=== PATIENT | male | born 1945 | race Caucasian/White ===

== ENCOUNTER 2019-01-11 12:12 | Emergency (ER) | payer MEDICARE ==
[~2019-01-11] VITALS: Ht 177.8 cm; Wt 71.2 kg
--- NOTE | 2019-01-11 12:12 | NUR ---
PT BBRA FOR CP FROM HOME, PT AAOX4, PT ON MONITOR, VSS, NAD NOTED, PENDING MD JACKSON
[2019-01-11 12:46] LABS: BASOPHILS # (AUTO) 0.1 /CMM (0.0-0.2); BASOPHILS % (AUTO) 0.7 % (0.0-2.0); EOSINOPHILS % (AUTO) 0.8 % (0.0-6.0); HEMATOCRIT 42 % (39-51); HEMOGLOBIN 14.3 g/dL (13.5-17.5); LYMPHOCYTES # (AUTO) 1.1 /CMM (0.8-4.8); LYMPHOCYTES % (AUTO) 14.2 % (20.0-44.0); MEAN CORPUSCULAR HGB CONC 34 g/dl (31.0-36.0); MEAN CORPUSCULAR VOLUME 91 fL (80-96); MONOCYTES # (AUTO) 0.9 /CMM (0.1-1.30); MONOCYTES % (AUTO) 11.4 % (2.0-12.0); NEUTROPHILS # (AUTO) 5.6 /CMM (1.8-8.9); NEUTROPHILS % (AUTO) 72.9 % (43.0-81.0); PLATELET COUNT (AUTO) 273 /CMM (150-450); RED BLOOD CELL COUNT(AUTO) 4.59 MIL/uL (4.5-6.0); WHITE BLOOD COUNT (AUTO) 7.7 K/uL (4.3-11.0)
[2019-01-11 12:55] LABS: CALCIUM, SERUM 9.8 mg/dL (8.5-10.1); CARBON DIOXIDE 30 mmol/L (21-32); CHLORIDE 101 mmol/L (98-107); CREATININE 0.8 mg/dL (0.6-1.3); GLUCOSE 124 mg/dL (74-106); POTASSIUM 4.3 mmol/L (3.5-5.1); SODIUM SERUM 138 mmol/L (136-145); UREA NITROGEN, BLOOD 25 mg/dL (7-18)
[2019-01-11 13:07] LABS: ALANINE AMINOTRANSFERASE 22 U/L (12-78); ALBUMIN 3.3 g/dL (3.4-5.0); ALKALINE PHOSPHATASE 68 U/L (46-116); ASPARTATE AMINOTRANSFERASE 22 U/L (15-37); B-TYPE NATRIURETIC PEPTIDE 117 PG/ML (0-125); BILIRUBIN,TOTAL 0.2 mg/dL (0.2-1.0); TOTAL PROTEIN, SERUM 7.3 g/dL (6.4-8.2)
[2019-01-11] MEDS ORDERED: LORAZEPAM 0.5 MG TABLET ONE (13:17)
[2019-01-11] MEDS: LORAZEPAM 0.5 MG TABLET PO ONE (13:32)
--- NOTE | 2019-01-11 13:45 | NUR ---
CALLED ART FOR PSYCH EVAL, ETA WITHIN THE HOUR.
[2019-01-11 14:09] LABS: SALICYLATE 2.1 mg/dL (2.8-20.0)
--- NOTE | 2019-01-11 14:13 | NUR ---
Note maria del rosario in EDM - 01/11/19 at 1417 by ORVILLE Patient discharged to home in stable condition. Written and verbal after care instructions given. Patient verbalizes understanding of instruction. IV removed. Catheter intact and site benign. Pressure and 4x4 applied to site. No bleeding noted.
[2019-01-11] MEDS ORDERED: DULO30CA2 PO (14:46)
[2019-01-11] MEDS ORDERED: ACET325T53 PO (14:46)
[2019-01-11] MEDS ORDERED: DIPH1TAB PO (14:46)
[2019-01-11] MEDS ORDERED: SUVO20TA PO (14:46)
[2019-01-11] MEDS ORDERED: OLAN2.5T3 PO (14:46)
[2019-01-11] MEDS ORDERED: MIRT30TA PO (14:46)
[2019-01-11] MEDS ORDERED: OLAN10TA3 PO (14:46)
[2019-01-11] MEDS ORDERED: LEVO88TA2 PO (14:46)
[2019-01-11] MEDS ORDERED: LOPE2CAP40 PO (14:46)
[2019-01-11] MEDS ORDERED: GABA-532 PO (14:46)
[2019-01-11] MEDS ORDERED: ASPI-1169 PO (14:46)
[2019-01-11] MEDS ORDERED: LIDO30AD10 TP (14:46)
[2019-01-11] MEDS ORDERED: DIVA-76 PO (14:46)
[2019-01-11] MEDS ORDERED: DIVA125T32 PO (14:46)
[2019-01-11] MEDS ORDERED: PRAV40TA3 PO (14:46)
[2019-01-11] MEDS ORDERED: CALC500T13 PO (14:50)
[2019-01-11] MEDS ORDERED: POLY17PO4 PO (14:50)
[2019-01-11] MEDS ORDERED: LORAZEPAM 1 MG TABLET ONE (16:04)
[2019-01-11] MEDS: LORAZEPAM 1 MG TABLET PO ONE (16:12)
--- NOTE | 2019-01-11 16:42 | NUR ---
Patient discharged to home in stable condition. Written and verbal after care instructions given. Patient verbalizes understanding of instruction.
[2019-01-11 16:43] VITALS: BP 131/75
== END 2019-01-11 16:51 | disposition home or self-care (01) ==
LOC: ER 12:12
DX: R07.89 Other chest pain (principal); F41.9 Anxiety disorder, unspecified; G25.0 Essential tremor
CPT/HCPCS: 36415; 71045; 80048; 80076; 80305; 83880; 84484; 85025; 87081; 93005 ×2; 99285; G0480

== ENCOUNTER 2020-10-18 13:32 | Inpatient (IN) | payer MEDICARE, BC ==
[~2020-10-18] VITALS: Ht 177.8 cm; Wt 65.0 kg
[~2020-10-18 13:32] MED LIST: ACET325T53 PO; ASPI-1169 PO; CALC500T13 PO; DIPH1TAB PO; DIVA-76 PO; DIVA125T32 PO; DULO30CA2 PO; GABA-532 PO; LEVO88TA2 PO; LIDO30AD10 TP; LOPE2CAP40 PO; MIRT-119 PO; OLAN10TA3 PO; OLAN2.5T3 PO; POLY17PO4 PO; PRAV40TA3 PO; SUVO20TA PO
--- NOTE | 2020-10-18 13:36 | NUR ---
PT BIBRA FROM HOME TO ER BED 06. PER REPORT, PT WAS RECENTLY DIAGNOSED W/ PNEUMONIA AND IS ON PO ANTIBIOTIC. PT WAS NOTED TO BE MORE ALTERED THAN USUAL TODAY AND IS WEAK W/ NOTED FREQUENT FALL SINCE 10/14/20. PT HYPOXIC COMPENSATOR WORKER. AWAITING MD JACKSON.
[2020-10-18] MEDS ORDERED: QUET150T2 PO (13:53)
[2020-10-18] MEDS ORDERED: GABA600T12 PO ×2 (13:53→15:32)
[2020-10-18] MEDS ORDERED: LEVO75TA PO (13:53)
[2020-10-18] MEDS ORDERED: TRAZ-257 PO (13:53)
--- NOTE | 2020-10-18 14:05 | NUR ---
DR LOZANO AT BEDSIDE FOR EVAL.
--- NOTE | 2020-10-18 14:20 | NUR ---
IV LINE STARTED BLO9OD DRAWN AND SENT TO LAB.
[2020-10-18 14:28] LABS: EOSINOPHILS % (AUTO) 0.2 % (0.0-6.0); HEMATOCRIT 37 % (39-51); HEMOGLOBIN 12.8 g/dL (13.5-17.5); LYMPHOCYTES # (AUTO) 0.9 /CMM (0.8-4.8); WHITE BLOOD COUNT (AUTO) 10.5 K/uL (4.3-11.0)
[2020-10-18 14:33] LABS: BILIRUBIN,URINE SMALL (NEGATIVE); COLOR,URINE YELLOW (YELLOW); LEUKOCYTE ESTERASE ,URINE Negative (NEGATIVE); NITRITE, URINE Negative (NEGATIVE); PROTEIN,URINE 30 mg/dl (NEGATIVE); UGLUCOSE Negative (NEGATIVE)
[2020-10-18 14:34] LABS: BASOPHILS % (AUTO) 0.4 % (0.0-2.0); MEAN CORPUSCULAR HGB CONC 35 g/dl (31.0-36.0); MEAN CORPUSCULAR VOLUME 100 fL (80-96); MONOCYTES # (AUTO) 1.5 /CMM (0.1-1.30); NEUTROPHILS % (AUTO) 76.4 % (43.0-81.0); PLATELET COUNT (AUTO) 162 /CMM (150-450)
[2020-10-18 14:38] LABS: BACTERIA,URINE None seen /HPF (None Seen); RBC,URINE 0-2 /HPF (0-2); SQUAMOUS EPITHELIAL CELL,UR None Seen /HPF (None Seen); WBC,URINE 0-2 /HPF (0-3)
[2020-10-18 14:41] LABS: ALCOHOL, BLOOD < 3 mg/dL (0-0)
[2020-10-18] MEDS ORDERED: VARE1TAB21 PO (14:42)
[2020-10-18] MEDS ORDERED: CYCL10TA9 PO (14:42)
[2020-10-18 14:54] LABS: ALANINE AMINOTRANSFERASE 25 U/L (12-78); ALBUMIN 1.8 g/dL (3.4-5.0); ALKALINE PHOSPHATASE 88 U/L (46-116); ASPARTATE AMINOTRANSFERASE 40 U/L (15-37); B-TYPE NATRIURETIC PEPTIDE 802 PG/ML (0-125); BILIRUBIN,TOTAL 0.5 mg/dL (0.2-1.0); CARBON DIOXIDE 36 mmol/L (21-32); CREATININE 0.9 mg/dL (0.6-1.3); GLUCOSE 96 mg/dL (74-106); TOTAL PROTEIN, SERUM 7.4 g/dL (6.4-8.2); UREA NITROGEN, BLOOD 23 mg/dL (7-18)
--- NOTE | 2020-10-18 14:57 | NUR ---
panel on -call paged
[2020-10-18] MEDS ORDERED: AZTREONAM 2 G in IV NS 0.9% 100 ML IV ONE (15:00)
[2020-10-18] MEDS ORDERED: DEXAMETHASONE SOD PHOSPHATE 10 MG/ML VIAL IV ONE (15:00)
[2020-10-18 15:03] LABS: SERUM AMMONIA 1 umol/L (11-32)
[2020-10-18] MEDS ORDERED: DEXAMETHASONE SOD PHOSPHATE 10 MG/ML VIAL ONE (15:12)
[2020-10-18 15:16] LABS: SODIUM SERUM 131 mmol/L (136-145)
[2020-10-18 15:17] LABS: CHLORIDE 91 mmol/L (98-107); POTASSIUM 3.7 mmol/L (3.5-5.1)
[2020-10-18] MEDS ORDERED: QUET100T PO (15:32)
[2020-10-18] MEDS ORDERED: DIVA500T2 PO (15:32)
[2020-10-18] MEDS ORDERED: ALBU8.5H8 IH (15:32)
[2020-10-18] MEDS ORDERED: LEVO500T90 PO (15:33)
[2020-10-18 15:34] LABS: CREATINE KINASE, TOTAL 57 U/L (39-308); FERRITIN 673 ng/mL (8-388)
[2020-10-18] MEDS ORDERED: MIRT-121 PO (15:34)
[2020-10-18] MEDS ORDERED: MIRT-119 PO (15:34)
[2020-10-18 16:02] LABS: ABG BASE EXCESS 10.8 mmol/L; ABG OXYGEN SATURATION 98.1 % (92.0-98.5); ABG PCO2 56.6 mmHg (35.0-45.0); ABG PH 7.433 (7.350-7.450); ABG PO2 134.5 mmHg (75.0-100.0); AaDO2 521.9 mmHg; COHb 0.2 % (0.5-1.5); MetHb 0.3 % (0.0-1.5); O2Hb 97.6 % (94.0-97.0); SITE, ABG Right Radial
[2020-10-18 16:24] LABS: D-DIMER 1.97 mg/L(FEU (0.17-0.50)
--- NOTE | 2020-10-18 16:27 | NUR ---
CALLED [facility] PAGED DR DURHAM
[2020-10-18 16:36] LABS: THYROID STIMULATING HORMONE 8.689 uIU/mL (0.358-3.74)
[2020-10-18] MEDS ORDERED: ACETAMINOPHEN 650 MG/SUPP.RECT RC PRN (18:00)
[2020-10-18] MEDS ORDERED: ONDANSETRON HCL/PF 4 MG/2 ML VIAL IVP PRN (18:00)
[2020-10-18] MEDS ORDERED: Z GUARD REMEDY 2 OZ OINT TP PRN (18:00)
[2020-10-18] MEDS ORDERED: ALBUTEROL SULFATE INH 18 GM HFA.AER.AD IH PRN (18:00)
[2020-10-18] MEDS ORDERED: GABAPENTIN 100 MG CAPSULE PO SCH (18:00)
--- NOTE | 2020-10-18 18:03 | NUR ---
PT APPEARS MORE RELAXED. ON MONITOR W/ STABLE VITALS AND SATTING 100% ON HIGH FLOW O2. WILL CONTINUE TO MONITOR.
--- NOTE | 2020-10-18 18:35 | NUR ---
NEURONTIN PO NOT GIVEN DUE TO PATIENTS AMS.
[2020-10-18] MEDS: ENOXAPARIN SODIUM 40 MG/0.4 ML DISP.SYRIN SQ SCH (18:54)
[2020-10-18] MEDS ORDERED: ENOXAPARIN SODIUM 40 MG/0.4 ML DISP.SYRIN SQ ONE (18:54)
--- NOTE | 2020-10-18 19:21 | NUR ---
REPORT GIVEN TO DEEDEE NOBLES FOR JORDY.
--- NOTE | 2020-10-18 19:30 | NUR ---
REC'D PT AAOX1-2, PT REMAINS ON HIGHFLOW O2, SAT ABOVE 96%, DENIES ANY SOB, DENIES PAIN/DISCOMFORT, PT VSS, NAD. WCTM
[2020-10-18] MEDS ORDERED: CLINDAMYCIN IV RTU IN D5W 600 MG/50 ML PIGGYBACK IV ONE (20:00)
[2020-10-18] MEDS ORDERED: GABAPENTIN 300 MG CAPSULE PO SCH (22:00)
[2020-10-18] MEDS: GABAPENTIN 300 MG CAPSULE PO SCH (22:00)
[2020-10-18] MEDS: CLINDAMYCIN 600 MG in IV D5W 50 ML IV SCH (22:30)
[2020-10-18] MEDS: MEROPENEM 500 MG in IV NS 0.9% 50 ML IV SCH (23:00)
[2020-10-18] MEDS ORDERED: ATORVASTATIN 40 MG TABLET ONE (23:04)
[2020-10-18] MEDS: ATORVASTATIN 40 MG TABLET PO SCH (23:11)
[2020-10-18] MEDS: IV D5/0.45 NACL 1,000 ML IV PRN (23:11)
[2020-10-19] MEDS: CLINDAMYCIN 600 MG in IV D5W 50 ML IV SCH ×3 (05:00→21:00)
[2020-10-19 05:08] LABS: HEMATOCRIT 34 % (39-51); HEMOGLOBIN 11.9 g/dL (13.5-17.5); LYMPHOCYTES # (AUTO) 0.5 /CMM (0.8-4.8); LYMPHOCYTES % (AUTO) 6.3 % (20.0-44.0); MEAN CORPUSCULAR HGB CONC 35 g/dl (31.0-36.0); MEAN CORPUSCULAR VOLUME 100 fL (80-96); MONOCYTES # (AUTO) 1.1 /CMM (0.1-1.30); MONOCYTES % (AUTO) 13.2 % (2.0-12.0); NEUTROPHILS # (AUTO) 6.9 /CMM (1.8-8.9); NEUTROPHILS % (AUTO) 80.5 % (43.0-81.0); PLATELET COUNT (AUTO) 166 /CMM (150-450); RED BLOOD CELL COUNT(AUTO) 3.41 MIL/uL (4.5-6.0); WHITE BLOOD COUNT (AUTO) 8.6 K/uL (4.3-11.0)
[2020-10-19 05:44] LABS: CHOLESTEROL 113 mg/dL (<200); HDL CHOLESTEROL 28 mg/dL (40-60); LDL 44 mg/dL (0-99); THYROID STIMULATING HORMONE 3.185 uIU/mL (0.358-3.74); TRIGLYCERIDES 71 mg/dL (30-150)
[2020-10-19 05:45] LABS: B-TYPE NATRIURETIC PEPTIDE 555 PG/ML (0-125); CALCIUM, SERUM 8.9 mg/dL (8.5-10.1); CARBON DIOXIDE 36 mmol/L (21-32); CHLORIDE 93 mmol/L (98-107); CREATININE 0.8 mg/dL (0.6-1.3); GLUCOSE 110 mg/dL (74-106); PHOSPHORUS 3.2 mg/dL (2.5-4.9); POTASSIUM 3.6 mmol/L (3.5-5.1); SODIUM SERUM 133 mmol/L (136-145); UREA NITROGEN, BLOOD 25 mg/dL (7-18)
[2020-10-19] MEDS: MEROPENEM 500 MG in IV NS 0.9% 50 ML IV SCH ×3 (06:39→22:00)
--- NOTE | 2020-10-19 07:20 | NUR ---
pt is altered. high risk for aspiration.
[2020-10-19] MEDS: LEVOTHYROXINE SODIUM 75 MCG TABLET PO SCH (07:30)
--- NOTE | 2020-10-19 08:58 | NUR ---
tried given patient a a sip of water. unable to tolerate, pt is coughing.
[2020-10-19] MEDS: CYCLOBENZAPRINE 10 MG TABLET PO SCH ×3 (09:00→17:00)
[2020-10-19] MEDS: MIRTAZAPINE 15 MG TABLET PO SCH (09:00)
[2020-10-19] MEDS ORDERED: DEXAMETHASONE SOD PHOSPHATE 6 MG in IV D5W 50 ML IV SCH (09:00)
[2020-10-19] MEDS: GABAPENTIN 300 MG CAPSULE PO SCH ×4 (09:00→22:00)
[2020-10-19] MEDS: DULOXETINE HCL 30 MG CAPSULE.DR PO SCH (09:00)
[2020-10-19] MEDS: DIVALPROEX SODIUM 500 MG TABLET.DR PO SCH ×3 (09:00→17:00)
[2020-10-19] MEDS ORDERED: DEXAMETHASONE SOD PHOSPHATE 10 MG/ML VIAL ONE (10:22)
[2020-10-19] MEDS: DEXAMETHASONE SOD PHOSPHATE 10 MG/ML VIAL IV SCH (10:23)
[2020-10-19] MEDS ORDERED: PANTOPRAZOLE 40 MG VIAL ONE (10:23)
[2020-10-19] MEDS: PANTOPRAZOLE 40 MG VIAL IV SCH (10:23)
[2020-10-19] MEDS ORDERED: acetaZOLAMIDE 250 MG TABLET PO ONE (14:00)
[2020-10-19] MEDS: IV D5/0.45 NACL 1,000 ML IV PRN (16:23)
[2020-10-19] MEDS ORDERED: ENOXAPARIN SODIUM 40 MG/0.4 ML DISP.SYRIN SQ ONE (18:10)
[2020-10-19] MEDS: ENOXAPARIN SODIUM 40 MG/0.4 ML DISP.SYRIN SQ SCH (18:13)
--- NOTE | 2020-10-19 19:36 | NUR ---
report given to valorie stanley for rubi.
--- NOTE | 2020-10-19 21:26 | NUR ---
report given mackenzie stanley for rubi pt will be transported to 1st floor
[2020-10-19] MEDS: ATORVASTATIN 40 MG TABLET PO SCH (22:00)
--- NOTE | 2020-10-19 23:04 | NUR ---
PT CAME FROM ER, AWAKE, A/O X2,CONFUSED, NO S/S OF DISTRESS NOTED. CALL LIGHT WITHIN REACH. BED ALARM ON. BED IN LOWEST AND LOCKED POSITION. ON HIGH FLOW O2 SATING 95%. NO COMPLAIN OF PAIN. HOB ELEVATED AT ALL TIMES.
[2020-10-19 23:30] VITALS: BP 148/80
[2020-10-20] VITALS: BP 148/80
[2020-10-20] MEDS: IV D5/0.45 NACL 1,000 ML IV PRN ×2 (00:24→22:28)
[2020-10-20 04:00] VITALS: BP 117/78
[2020-10-20] MEDS ORDERED: MEROPENEM 500 MG VIAL IV ONE (04:08)
[2020-10-20] MEDS: MEROPENEM 500 MG in IV NS 0.9% 50 ML IV SCH ×3 (05:01→22:28)
--- NOTE | 2020-10-20 05:10 | NUR ---
called the nursing assembly department supervisor RE: follow up for the med clindamycin.
[2020-10-20] MEDS: CLINDAMYCIN 600 MG in IV D5W 50 ML IV SCH ×3 (06:52→21:07)
[2020-10-20 06:58] LABS: BASOPHILS # (AUTO) 0.1 /CMM (0.0-0.2); BASOPHILS % (AUTO) 1.3 % (0.0-2.0); HEMATOCRIT 37 % (39-51); HEMOGLOBIN 12.5 g/dL (13.5-17.5); LYMPHOCYTES # (AUTO) 1.2 /CMM (0.8-4.8); LYMPHOCYTES % (AUTO) 12.8 % (20.0-44.0); MEAN CORPUSCULAR HGB CONC 34 g/dl (31.0-36.0); MEAN CORPUSCULAR VOLUME 99 fL (80-96); MONOCYTES # (AUTO) 1.4 /CMM (0.1-1.30); MONOCYTES % (AUTO) 15.2 % (2.0-12.0); NEUTROPHILS # (AUTO) 6.4 /CMM (1.8-8.9); NEUTROPHILS % (AUTO) 70.7 % (43.0-81.0); PLATELET COUNT (AUTO) 199 /CMM (150-450); RED BLOOD CELL COUNT(AUTO) 3.73 MIL/uL (4.5-6.0); WHITE BLOOD COUNT (AUTO) 9.1 K/uL (4.3-11.0)
[2020-10-20 07:36] LABS: CALCIUM, SERUM 8.7 mg/dL (8.5-10.1); CREATININE 0.8 mg/dL (0.6-1.3); MAGNESIUM 1.7 mg/dL (1.8-2.4); PHOSPHORUS 1.7 mg/dL (2.5-4.9); POTASSIUM 3.1 mmol/L (3.5-5.1)
[2020-10-20 08:00] VITALS: BP 114/61
--- NOTE | 2020-10-20 08:00 | NUR ---
RN NOTES RECEIVED PT IN BED . ALERT AND ORIENTED X2 CONFUSED. PT IS ON HIGH FLOW 60 L@65% NO ACUTE RESPIRATORY DISTRESS NOTED OR PAIN AT THIS TIME. R AC AND LAC IS INTACT AND D51/2 NS IS RUNNING @75ML /HR NO S/S OF INFECTION OR INFILTRATION NOTED. SAFETY MEASUREMENTS ARE IMPLEMENTED PER HOSPITAL POLICY. BED IS IN THE LOWEST POSITION AND SIDE RAILS ARE UP X2. CALL LIGHT WITHIN THE PT REACH. WILL CONTINUE TO MONITOR
[2020-10-20] MEDS: DIVALPROEX SODIUM 500 MG TABLET.DR PO SCH ×3 (08:35→16:07)
[2020-10-20] MEDS: DEXAMETHASONE SOD PHOSPHATE 10 MG/ML VIAL IV SCH (08:35)
[2020-10-20] MEDS: CYCLOBENZAPRINE 10 MG TABLET PO SCH ×3 (08:35→16:09)
[2020-10-20] MEDS: GABAPENTIN 300 MG CAPSULE PO SCH ×4 (08:35→21:07)
[2020-10-20] MEDS: LEVOTHYROXINE SODIUM 75 MCG TABLET PO SCH (08:35)
[2020-10-20] MEDS: PANTOPRAZOLE 40 MG VIAL IV SCH (08:35)
[2020-10-20] MEDS: MIRTAZAPINE 15 MG TABLET PO SCH (08:36)
[2020-10-20] MEDS: DULOXETINE HCL 30 MG CAPSULE.DR PO SCH (08:36)
[2020-10-20] MEDS: Magnesium 1GM/D5W 100ML PREMIX 100 ML IV SCH ×2 (10:20→11:01)
[2020-10-20] MEDS: POTASSIUM CL. PREMIX PERIPHER. 50 ML IV SCH ×4 (11:39→14:34)
[2020-10-20 12:00] VITALS: BP 109/75
[2020-10-20] MEDS ORDERED: NEUTRA PHOS 1 POWD.PACKET PO ONE (12:00)
[2020-10-20 13:16] LABS: LYMPHOCYTES % (MANUAL) 11 % (16-48); MONOCYTES % (MANUAL) 17 % (0-11.0); NEUTROPHILS % (MANUAL) 72 (42-76)
--- NOTE | 2020-10-20 15:07 | NUR ---
RN NOTES PT HAS NO S/S OF RESPIRATORY DISTRESS NOTED
[2020-10-20 16:00] VITALS: BP 150/61
[2020-10-20] MEDS: ENOXAPARIN SODIUM 40 MG/0.4 ML DISP.SYRIN SQ SCH (17:59)
--- NOTE | 2020-10-20 18:54 | NUR ---
RN CLOSING NOTES PATIENT CURRENTLY IN BED, RESTING. A/OX2 CONFUSED. TELE/MONITOR IS READING SR . PATIENT CURRENTLY ON HIGH FLOW 60L FIO2@65% NO S/S OF RESPIRATORY DISTRESS NOTED. HR TUBE FEEDING. CURRENTLY HAS IV ON L AC AND RAC#18 . IV INTACT AND PATENT, NO S/S OF INFECTION OR INFILTRATION AT THIS TIME. ALL SAFETY MEASURES IN PLACE PER HOSPITAL POLICY. BED LOCKED AND IN THE LOWEST POSITION.SIDE RAILS ARE UP X2. CALL LIGHT WITHIN REACH. WILL ENDORSE TO DIRECTOR PAYMENT NURSE FOR JORDY.
--- NOTE | 2020-10-20 19:30 | NUR ---
FERTILIZER SUPERVISOR OPENING NOTES: RECEIVED PT IN BED, ASLEEP,AROUSABLE. HOB ELEVATED AT 35 DEGREES. ON HIGH FLOW O2 AT 60L,65%. NO S/S OF DISTRESS NOTED. BED ALARM ON. BED IN LOWEST AND LOCKED POSITION. WITH BILATERAL SOFT WRISTS RESTRAINTS WITH SKIN AND CIRCULATION ARE WNL.
[2020-10-20 20:00] VITALS: BP 130/95
[2020-10-20] MEDS: ATORVASTATIN 40 MG TABLET PO SCH (21:06)
[2020-10-21] VITALS (7 sets, daily range): BP systolic 109–126; BP diastolic 67–75
[2020-10-21] MEDS: CLINDAMYCIN 600 MG in IV D5W 50 ML IV SCH ×3 (05:38→20:24)
--- NOTE | 2020-10-21 06:37 | NUR ---
WEB ANALYST CLOSING NOTES: PT IN BED, AWAKE, A/OX2.CONFUSED. NO S/S OF DISTRESS NOTED. SLEPT THROUGHOUT THE NIGHT. BED ALARM ON. BED IN LOWEST AND LOCKED POSITION. WITH BILATERAL SOFT WRISTS RESTRAINTS ON, SKIN AND CIRCULATION ARE WNL. PT OBSERVED Q15 MINS FOR SAFETY. CLEMENTINA-CARE DONE. CALL LIGHT WITHIN REACH.
[2020-10-21] MEDS: MEROPENEM 500 MG in IV NS 0.9% 50 ML IV SCH ×3 (06:56→21:30)
[2020-10-21] MEDS: LEVOTHYROXINE SODIUM 75 MCG TABLET PO SCH (07:30)
--- NOTE | 2020-10-21 07:30 | NUR ---
RN OPENING NOTE PT SEMIFOWLERS IN BED RESTING COMFORTABLY, A/Ox1 AND CONFUSED, ON HIGH FLOW O2 AT 60L AND FIO2 OF 65%, NO SIGNS OF RESP DISTRESS OR SOB, BREATHING IS EVEN AND UNLABORED. PT HAS LAC #18 RUNNING D5 1/2 NS AT 75ML/HR AND RAC THAT IS FLUSHED, PATENT AND SL, NO SIGNS OF INFILTRATION OR INFECTION IN EITHER ACCESS SITE. PT DENIES PAIN. ALL PT SAFETY PRECAUTIONS IN PLACE, BED IN LOWEST POSITION, BED ALARM ON, CALL SHAH WITHIN REACH, SR UP x2, SZ PRECAUTIONS IN PLACE. WILL CONTINUE TO MONITOR. Addendum: 10/21/20 at 1344 by ANA MARIA DELANEY RN PT HAS BILATERAL SOFT WRIST RESTRAINTS; CMS INTACT. WILL CONTINUE TO ASSESS
--- NOTE | 2020-10-21 07:30 | NUR ---
RN OPENING NOTE PT SEMIFOWLERS IN BED RESTING COMFORTABLY, A/Ox4, ON NRB 15LPM WITHNO SIGNS OF RESP DISTRESS OR SOB, BREATHING IS EVEN AND UNLABORED. PT HAS LT WRIST #22 RUNNING NS @ 75ML/HR. PT DENIES PAIN. ALL PT SAFETY PRECAUTIONS IN PLACE, BED IN LOWEST POSITION, CALL SHAH WITHIN REACH, SR UP x2. WILL CONTINUE TO MONITOR. Addendum: 10/21/20 at 1122 by ANA MARIA DELANEY RN DISREGARD NOTE, WRONG PT. WILL ENTER CORRECT OPENING NOTE NOW
[2020-10-21 08:23] LABS: THYROID STIMULATING HORMONE 6.487 uIU/mL (0.358-3.74); URIC ACID 4.2 mg/dL (2.6-7.2)
[2020-10-21 08:42] LABS: CALCIUM, SERUM 7.7 mg/dL (8.5-10.1); CREATININE 0.7 mg/dL (0.6-1.3); MAGNESIUM 1.7 mg/dL (1.8-2.4); PHOSPHORUS 2.3 mg/dL (2.5-4.9); POTASSIUM 3.3 mmol/L (3.5-5.1)
[2020-10-21] MEDS: DULOXETINE HCL 30 MG CAPSULE.DR PO SCH (09:00)
[2020-10-21] MEDS: DIVALPROEX SODIUM 500 MG TABLET.DR PO SCH ×3 (09:00→16:49)
[2020-10-21] MEDS: GABAPENTIN 300 MG CAPSULE PO SCH ×4 (09:00→21:37)
[2020-10-21] MEDS: MIRTAZAPINE 15 MG TABLET PO SCH (09:00)
[2020-10-21] MEDS: CYCLOBENZAPRINE 10 MG TABLET PO SCH ×3 (09:00→16:49)
--- NOTE | 2020-10-21 09:00 | NUR ---
RN NOTE PT IS CONFUSED AND ASPIRATION RISK. WILL NOT ADMIN PO MEDS. WILL NOTIFY MD
[2020-10-21] MEDS: PANTOPRAZOLE 40 MG VIAL IV SCH (09:04)
[2020-10-21] MEDS: DEXAMETHASONE SOD PHOSPHATE 10 MG/ML VIAL IV SCH (09:05)
[2020-10-21] MEDS: Magnesium 1GM/D5W 100ML PREMIX 100 ML IV SCH ×2 (11:00→12:22)
[2020-10-21] MEDS: POTASSIUM CL. PREMIX PERIPHER. 50 ML IV SCH ×2 (12:22→12:30)
[2020-10-21] MEDS ORDERED: Sodium Phosphate 15 MMOL in IV NS 0.9% 245 ML IV SCH (13:00)
--- NOTE | 2020-10-21 14:00 | NUR ---
RN NOTE DR DURHAM AWARE NO PO MEDS GIVEN TO PT D/T CONFUSION AND ASPIRATION RISK. PT SCHEDULED SWALLOW EVAL Thursday10/22/20
[2020-10-21] MEDS ORDERED: POTASSIUM CL. PREMIX PERIPHER. 50 ML IV SCH (15:30)
--- NOTE | 2020-10-21 15:30 | NUR ---
RN NOTE SPOKE WITH GUARDIAN RAFAEL ([phone]) REGARDING PT'S STATUS. RAFAEL REQUEST WE GIVE HER 24 HR NOTICE PRIOR TO DISCHARGING OF PT. ALL QUESTIONS ANSWERED TO HER SATISFACTION Addendum: 10/21/20 at 1650 by ANA MARIA DELANEY RN PER RAFAEL, NOT TO GIVE PT XANAX, BUT ATIVAN IS OK FOR ANXIETY
[2020-10-21] MEDS: IV D5/0.45 NACL 1,000 ML IV PRN (15:39)
[2020-10-21 16:41] LABS: C-REACTIVE PROTEIN 14.9 mg/dL (0.0-0.9)
[2020-10-21] MEDS: ENOXAPARIN SODIUM 40 MG/0.4 ML DISP.SYRIN SQ SCH (17:36)
--- NOTE | 2020-10-21 19:00 | NUR ---
RN CLOSING NOTE NO CHANGE TO PT STATUS. PT STABLE AND BREATHING UNLABORED WITH NO SIGNS OF RESP DISTRESS OR SOB. ALL PT SAFETY PRECAUTIONS IN PLACE. WILL ENDORSE JORDY TO ONCOMING NURSE
--- NOTE | 2020-10-21 19:20 | NUR ---
RN OPENING NOTE RECEIVED PATIENT IN BED ALERT ORIENTED X1 VERBALLY RESPONSIVE ON HIGH FLOW OXYGEN 60L FIO2 60% O2:89% NPO NO MEDS PO. IV LINE IS ON LEFT AC AND RIGHT AC INTACT PATENT ON D5 1/2NS 75CC/HR RUNNING,INCONTINENT TO BOWEL/BLADDER BED IN LOW POSITION AND LOCKED BED ALARM IS ON CONTINUE TO MONITOR.
[2020-10-21] MEDS: ATORVASTATIN 40 MG TABLET PO SCH (21:37)
--- NOTE | 2020-10-21 21:38 | NUR ---
RN NOTE LIPITOR AND GABAPENTIN NOT ADMINISTERED DR ORDERED PATIENT IN NPO,CONTINUE TO MONITOR
[2020-10-22] VITALS: BP 128/71
[2020-10-22] MEDS: IV D5/0.45 NACL 1,000 ML IV PRN ×2 (03:44→19:08)
[2020-10-22 04:00] VITALS: BP 126/74
[2020-10-22] MEDS: CLINDAMYCIN 600 MG in IV D5W 50 ML IV SCH ×2 (04:04→13:08)
[2020-10-22] MEDS: MEROPENEM 500 MG in IV NS 0.9% 50 ML IV SCH ×3 (05:01→21:32)
--- NOTE | 2020-10-22 06:38 | NUR ---
RN CLOSING NOTE PATIENT REMAINS ON ALERT ORIENTED X1 VERBALLY RESPONSIVE ON 60L HIGH FLOW OXYGEN FIO2:65% O2:96%,IV SITE IS LEFT AC AND RIGHT AC INTACT PATENT ON IV HYDRATION D51/2NS 75CC/HR,ALL DUE IV MEDS GIVEN MD ORDERED, PATIENT IS NPO RISK FOR ASPIRATION,KEPT CLEAN AND DRY ALL THE TIME,ENDORSE NEXT COMING SHIFT FOR CONTINUATION OF CARE
[2020-10-22 07:09] LABS: BASOPHILS % (AUTO) 0.4 % (0.0-2.0); EOSINOPHILS % (AUTO) 1.2 % (0.0-6.0); HEMATOCRIT 33 % (39-51); HEMOGLOBIN 11.4 g/dL (13.5-17.5); LYMPHOCYTES # (AUTO) 1.5 /CMM (0.8-4.8); LYMPHOCYTES % (AUTO) 17.8 % (20.0-44.0); MEAN CORPUSCULAR HGB CONC 35 g/dl (31.0-36.0); MEAN CORPUSCULAR VOLUME 99 fL (80-96); MONOCYTES # (AUTO) 1.4 /CMM (0.1-1.30); MONOCYTES % (AUTO) 16.4 % (2.0-12.0); NEUTROPHILS # (AUTO) 5.5 /CMM (1.8-8.9); NEUTROPHILS % (AUTO) 64.2 % (43.0-81.0); PLATELET COUNT (AUTO) 239 /CMM (150-450); RED BLOOD CELL COUNT(AUTO) 3.28 MIL/uL (4.5-6.0); WHITE BLOOD COUNT (AUTO) 8.6 K/uL (4.3-11.0)
[2020-10-22] MEDS: LEVOTHYROXINE SODIUM 75 MCG TABLET PO SCH (07:30)
[2020-10-22 07:55] LABS: CALCIUM, SERUM 7.5 mg/dL (8.5-10.1); CREATININE 0.7 mg/dL (0.6-1.3); MAGNESIUM 1.7 mg/dL (1.8-2.4); PHOSPHORUS 2.3 mg/dL (2.5-4.9); POTASSIUM 2.9 mmol/L (3.5-5.1)
--- NOTE | 2020-10-22 07:55 | NUR ---
WOUND CARE CONSULT: REVIEWED CHART, NURSING DOCUMENTATION ANDPHOTOS WHICH INDICATE MULTIPLE AREAS OF SKIN DISCOLORATION INCLUDING LEFT BUTTOCK AND LEFT EAR AND LOWER BACK ABRASION, ALL PRESENT ON ADMISSION. RECOMMENDATIONS MADE FOR SKIN PROTECTION. DISCUSSED WITH NURSING STAFF. PT SITS UP AT EDGE OF BED. PT IS ON ACTON ISOFLEX LOW AIRLOSS BED. MD IN AGREEMENT WITH PLAN OF CARE. CURRENT ARNULFO SCORE IS 14.
[2020-10-22 08:00] VITALS: BP 119/72
--- NOTE | 2020-10-22 08:00 | NUR ---
RN OPENING NOTE RECEIVED PATIENT IN BED WITH HOB AT SEMI FOWLERS POSITION. PATIENT IS AOX1. RECEIVING HIGH FLOW 60L AT 65%. PATIENT HAS MULTIPLE BRUISES. SOFT RESTRAINTS APPLIED BILATERALLY. PATIENTS RAC #118 AND LAC #18 ARE PATENT, INTACT, AND HAVE NO SIGNS OF INFILTRATION. BED IS LOCKED IN LOWEST POSITION, 3 SIDE RAILS RAISED, CALL SHAH WITHIN REACH. WILL CONTINUE TO MONITOR THROUGHOUT SHIFT.
[2020-10-22 08:19] LABS: CREATINE KINASE, TOTAL 182 U/L (39-308); FERRITIN 525 ng/mL (8-388)
[2020-10-22] MEDS: DULOXETINE HCL 30 MG CAPSULE.DR PO SCH (09:00)
[2020-10-22] MEDS: CYCLOBENZAPRINE 10 MG TABLET PO SCH ×3 (09:00→17:35)
[2020-10-22] MEDS: DIVALPROEX SODIUM 500 MG TABLET.DR PO SCH ×3 (09:00→17:35)
[2020-10-22] MEDS: GABAPENTIN 300 MG CAPSULE PO SCH ×4 (09:00→21:44)
[2020-10-22] MEDS: MIRTAZAPINE 15 MG TABLET PO SCH (09:00)
[2020-10-22] MEDS: PANTOPRAZOLE 40 MG VIAL IV SCH (09:21)
[2020-10-22] MEDS: DEXAMETHASONE SOD PHOSPHATE 10 MG/ML VIAL IV SCH (09:25)
[2020-10-22 10:06] LABS: BAND % (MANUAL) 5 % (0.0-5.0); LYMPHOCYTES % (MANUAL) 20 % (16-48); MONOCYTES % (MANUAL) 17 % (0-11.0); NEUTROPHILS % (MANUAL) 58 (42-76)
[2020-10-22] MEDS ORDERED: K PHOS NEUTRAL 250 MG TABLET PO ONE (11:00)
[2020-10-22] MEDS ORDERED: POTASSIUM CHLORIDE 20 MEQ TAB.PRT.SR PO SCH (11:00)
[2020-10-22] MEDS: Magnesium 1GM/D5W 100ML PREMIX 100 ML IV SCH ×2 (11:28→13:01)
[2020-10-22] MEDS: POTASSIUM CHLORIDE 20 MEQ POWDER PACKET PO SCH ×3 (11:30→14:07)
[2020-10-22] MEDS ORDERED: NEUTRA PHOS 1 POWD.PACKET PO ONE (11:30)
--- NOTE | 2020-10-22 11:33 | NUR ---
PICKER AND SORTER LOAD AND UNLOAD NOTE KLOR CON AND NEUTRA PHOS POWDER PACKETS GIVEN ALTERNATIVES FOR PATIENTS INABILITY TO SWALLOW WHOLE PILLS. WILL CONTINUE TO MONITOR.
[2020-10-22 12:00] VITALS: BP 127/74
[2020-10-22 16:00] VITALS: BP 144/91
[2020-10-22 16:55] LABS: C-REACTIVE PROTEIN 7.7 mg/dL (0.0-0.9)
[2020-10-22] MEDS: ENOXAPARIN SODIUM 40 MG/0.4 ML DISP.SYRIN SQ SCH (17:36)
--- NOTE | 2020-10-22 18:48 | NUR ---
RN CLOSING NOTE PATIENT IS IN BED WITH HOB AT SEMI FOWLERS POSITION. AOX2. PATIENT HAS SOFT RESTRAINTS BILATERALLY AND IS RESTLESS. SKIN IS INTACT WITH SOME BRUISING. PATIENT IS RECEIVING HIGH FLOW 60L AT 65%. VITAL SIGNS ARE WITHIN NORMAL RANGE. RAC AND LAC #18 ARE PATENT, INTACT, AND HAVE NO SIGNS OF INFILTRATION. BED IS LOCKED IN THE LOWEST POSITION, CALL SHAH WITHIN REACH, THREE GUARD RAILS RAISED, AND ALL HOSPITAL SAFETY PRECAUTIONS ARE BEING FOLLOWED. WILL ENDORSE TO OXYGEN THERAPY TEACHER NURSE.
--- NOTE | 2020-10-22 19:35 | NUR ---
RN OPENING NOTES RECEIVED PATIENT IN BED. PATIENT IS A/O X 1-2 CONFUSED, COOPERATIVE. PT ON HIGH FLOW 60L AT 65% FIO2 SATURATION 100% AT THIS TIME NO SOB OR RESP DISTRESS. PATIENT HAS MULTIPLE BRUISES. PT HAS SOFT FELA WRIST RESTRAINTS ON. CIRCULATION CHECKED. IV SITES FLUSHED, WITH IVF D5 0.45% NS RUNNING AT 75XCC/HR NO S/S OF INFILTRATION NOTED AT THIS TIME. HOB ELEVATED. BED IS LOCKED IN LOWEST POSITION, SIDE RAILS UP X3, CALL LIGHT WITHIN REACH. WILL CONTINUE TO MONITOR.
[2020-10-22 20:00] VITALS: BP 123/82
[2020-10-22] MEDS: ATORVASTATIN 40 MG TABLET PO SCH (21:33)
[2020-10-23] VITALS: BP 110/77
[2020-10-23 04:00] VITALS: BP 136/85
[2020-10-23] MEDS: MEROPENEM 500 MG in IV NS 0.9% 50 ML IV SCH ×3 (05:07→22:21)
[2020-10-23] MEDS: IV D5/0.45 NACL 1,000 ML IV PRN (05:07)
[2020-10-23 06:37] LABS: BASOPHILS % (AUTO) 0.2 % (0.0-2.0); EOSINOPHILS % (AUTO) 1.7 % (0.0-6.0); HEMATOCRIT 33 % (39-51); HEMOGLOBIN 11.5 g/dL (13.5-17.5); LYMPHOCYTES # (AUTO) 2.3 /CMM (0.8-4.8); LYMPHOCYTES % (AUTO) 29.7 % (20.0-44.0); MEAN CORPUSCULAR HGB CONC 35 g/dl (31.0-36.0); MEAN CORPUSCULAR VOLUME 98 fL (80-96); MONOCYTES % (AUTO) 13.6 % (2.0-12.0); NEUTROPHILS # (AUTO) 4.2 /CMM (1.8-8.9); NEUTROPHILS % (AUTO) 54.8 % (43.0-81.0); PLATELET COUNT (AUTO) 273 /CMM (150-450); RED BLOOD CELL COUNT(AUTO) 3.39 MIL/uL (4.5-6.0); WHITE BLOOD COUNT (AUTO) 7.7 K/uL (4.3-11.0)
[2020-10-23 07:10] LABS: CALCIUM, SERUM 7.4 mg/dL (8.5-10.1); CARBON DIOXIDE 25 mmol/L (21-32); CHLORIDE 95 mmol/L (98-107); CREATININE 0.5 mg/dL (0.6-1.3); GLUCOSE 105 mg/dL (74-106); MAGNESIUM 1.8 mg/dL (1.8-2.4); POTASSIUM 3.3 mmol/L (3.5-5.1); SODIUM SERUM 127 mmol/L (136-145); UREA NITROGEN, BLOOD 14 mg/dL (7-18)
--- NOTE | 2020-10-23 07:12 | NUR ---
RN CLOSING NOTES NO SIGNIFICANT CHANGES. PT RESTED WELL. PT ON HIGH FLOW 60L AT 65% FIO2 SATURATION 100% AT THIS TIME NO SOB OR RESP DISTRESS. PT HAS SOFT FELA WRIST RESTRAINTS ON. CIRCULATION CHECKED. STILL WITH IVF D5 0.45% NS RUNNING AT 75XCC/HR NO S/S OF INFILTRATION NOTED AT THIS TIME. HOB ELEVATED. BED IS LOCKED IN LOWEST POSITION, SIDE RAILS UP X3, CALL LIGHT WITHIN REACH. WILL ENDORSE TO AM NURSE FOR CONTINUATION OF CARE.
[2020-10-23 07:19] LABS: CREATINE KINASE, TOTAL 79 U/L (39-308); FERRITIN 453 ng/mL (8-388)
--- NOTE | 2020-10-23 07:30 | NUR ---
POLY OPERATOR OPENING NOTES Patient received in bed and alert and oriented x 2 with forgetfulness. Patient is on 40 liter high flow 02 with 60% fi02 with 02 saturation of 96%. No s/s of respiratory distress noted. IV site to left and right ac patent and flushed well with no s/s of infiltration or infection. Patient monitored for circulation and any s/s of skin breakdown due to soft wrist restraints, no s/s of breakdown noted. Circulation noted. Patient reminded to use call light for assistance. On cardiac monitoring with NSR heart rate of 77 BPM. Bed in lowest and locked position. Will continue to monitor. Call light with in reach.
[2020-10-23 08:00] VITALS: BP 110/72
[2020-10-23] MEDS: DEXAMETHASONE SOD PHOSPHATE 10 MG/ML VIAL IV SCH (08:23)
[2020-10-23] MEDS: LEVOTHYROXINE SODIUM 75 MCG TABLET PO SCH (08:23)
[2020-10-23] MEDS: DIVALPROEX SODIUM 500 MG TABLET.DR PO SCH ×3 (08:23→17:23)
[2020-10-23] MEDS: GABAPENTIN 300 MG CAPSULE PO SCH ×4 (08:24→22:21)
[2020-10-23] MEDS: FAMOTIDINE/PF INJ 20 MG/2 ML VIAL IV SCH (08:24)
[2020-10-23] MEDS: DULOXETINE HCL 30 MG CAPSULE.DR PO SCH (08:24)
[2020-10-23] MEDS: CYCLOBENZAPRINE 10 MG TABLET PO SCH ×3 (08:24→17:24)
[2020-10-23] MEDS: MIRTAZAPINE 15 MG TABLET PO SCH (08:25)
[2020-10-23 12:00] VITALS: BP 120/74
[2020-10-23 15:23] LABS: C-REACTIVE PROTEIN 5.4 mg/dL (0.0-0.9)
[2020-10-23 16:00] VITALS: BP 124/77
[2020-10-23] MEDS ORDERED: NEUTRA PHOS 1 POWD.PACKET PO ONE (16:00)
[2020-10-23] MEDS: ENOXAPARIN SODIUM 40 MG/0.4 ML DISP.SYRIN SQ SCH (17:25)
--- NOTE | 2020-10-23 19:38 | NUR ---
IMITATION MARBLE MECHANIC CLOSING NOTES Patient in bed and in comfortable position. Patient is on 40 liter high flow 02 with 60% fi02 with 02 saturation of 98%. No s/s of respiratory distress noted. IV site to left and right ac patent and flushed well with no s/s of infiltration or infection. Patient monitored for circulation and any s/s of skin breakdown due to soft wrist restraints, no s/s of breakdown noted. Circulation noted. Patient reminded to use call light for assistance. On cardiac monitoring with NSR heart rate of 71 BPM. Bed in lowest and locked position. Will continue to monitor. Endorsed to next shift for JORDY
--- NOTE | 2020-10-23 19:40 | NUR ---
TELE/RN OPENING NOTES: RECEIVED PT. IN BED A/OX 2, WITH FORGETFULNESS. PATIENT IS ON 40 LITER HIGH FLOW 02 WITH 60% FI02 WITH 02 SATURATION OF 97%. NO S/S OF RESPIRATORY DISTRESS NOTED. IV SITE TO LEFT AC #18G PATENT AND FLUSHED WELL WITH NO S/S OF INFILTRATION OR INFECTION. MONITORED FOR CIRCULATION AND ANY S/S OF SKIN BREAKDOWN DUE TO SOFT WRIST RESTRAINTS, NO S/S OF BREAKDOWN NOTED. CIRCULATION NOTED. ON CARDIAC MONITORING WITH NSR HEART RATE OF 70S BPM. SAFETY MEASURES IN PLACE. BED IN LOWEST AND LOCKED POSITION. CALL LIGHT WITH IN REACH. WILL CONTINUE TO MONITOR ACCORDINGLY.
[2020-10-23 20:00] VITALS: BP 107/66
[2020-10-23] MEDS: ATORVASTATIN 40 MG TABLET PO SCH (22:21)
[2020-10-24] VITALS: BP 98/72
[2020-10-24] MEDS: IV D5/0.45 NACL 1,000 ML IV PRN (01:08)
[2020-10-24 04:00] VITALS: BP 109/73
[2020-10-24] MEDS: MEROPENEM 500 MG in IV NS 0.9% 50 ML IV SCH ×2 (05:33→12:56)
--- NOTE | 2020-10-24 06:44 | NUR ---
TELE/RN CLOSING NOTES: PATIENT REMAINS IN BED A/OX 2, WITH FORGETFULNESS. TOLERATING 40 LITER HIGH FLOW 02 WITH 60% FI02 WITH 02 SATURATION OF 96%. NO S/S OF RESPIRATORY DISTRESS NOTED. IV SITE TO LEFT AC #18G PATENT AND FLUSHED WELL WITH NO S/S OF INFILTRATION OR INFECTION. MONITORED FOR CIRCULATION AND ANY S/S OF SKIN BREAKDOWN DUE TO SOFT WRIST RESTRAINTS, NO S/S OF BREAKDOWN NOTED. CIRCULATION NOTED. ON CARDIAC MONITORING WITH NSR HEART RATE OF 70S BPM. BED BATH GIVEN. TURNED AND REPOSITIONED Q2HRS. ALL NURSING NEEDS MET. KEPT CLEAN AND DRY AT ALL TIMES. ALL DUE MED GIVEN ORDERED. SAFETY MEASURES IN PLACE. BED IN LOWEST AND LOCKED POSITION. CALL LIGHT WITH IN REACH. WILL CONTINUE PLAN OF CARE AND ENDORSE TO DAY SHIFT FOR JORDY.
[2020-10-24 07:02] LABS: CALCIUM, SERUM 7.5 mg/dL (8.5-10.1); CREATININE 0.6 mg/dL (0.6-1.3); PHOSPHORUS 2.1 mg/dL (2.5-4.9); POTASSIUM 3.5 mmol/L (3.5-5.1)
--- NOTE | 2020-10-24 07:30 | NUR ---
PT RECEIVED RESTING COMFORTABLY IN BED. NO S/S OR C/O PAIN OR DISCOMFORT NOTED. SIDE RAILS UP X2, CALL LIGHT LEFT WITHIN REACH. WILL CONTINUE PLAN OF CARE.
[2020-10-24 08:00] VITALS: BP 116/80
[2020-10-24] MEDS: GABAPENTIN 300 MG CAPSULE PO SCH ×4 (08:38→22:35)
[2020-10-24] MEDS: MIRTAZAPINE 15 MG TABLET PO SCH (08:38)
[2020-10-24] MEDS: DIVALPROEX SODIUM 500 MG TABLET.DR PO SCH ×3 (08:38→17:09)
[2020-10-24] MEDS: CYCLOBENZAPRINE 10 MG TABLET PO SCH ×3 (08:38→17:10)
[2020-10-24] MEDS: LEVOTHYROXINE SODIUM 75 MCG TABLET PO SCH (08:38)
[2020-10-24] MEDS: DULOXETINE HCL 30 MG CAPSULE.DR PO SCH (08:39)
[2020-10-24] MEDS: DEXAMETHASONE SOD PHOSPHATE 10 MG/ML VIAL IV SCH (08:45)
[2020-10-24] MEDS: FAMOTIDINE/PF INJ 20 MG/2 ML VIAL IV SCH (08:45)
[2020-10-24 12:00] VITALS: BP 94/68
[2020-10-24] MEDS ORDERED: NEUTRA PHOS 1 POWD.PACKET PO ONE (13:00)
[2020-10-24 16:00] VITALS: BP 129/80
[2020-10-24] MEDS: ENOXAPARIN SODIUM 40 MG/0.4 ML DISP.SYRIN SQ SCH (17:11)
--- NOTE | 2020-10-24 19:17 | NUR ---
CHANGE OF SHIFT REPORT PT RESTING COMFORTABLY IN BED. NO S/S OR C/O PAIN OR DISTRESS NOTED. SIDE RAILS UP X2, CALL LIGHT LEFT WITHIN REACH. PT KEPT CLEAN, DRY, AND COMFORTABLE. NO SIGNIFICANT CHANGES SINCE PREVIOUS SHIFT. WILL GIVE REPORT TO AIDE NOBLES.
--- NOTE | 2020-10-24 19:30 | NUR ---
HAT DESIGNER OPENING NOTE RECEIVED PATIENT IN BED. A/OX1-2, VERY CONFUSED AND RESTLESS AT THIS TIME. ON OXYGEN 40L/MIN VIA HIGH FLOW NASAL CANNULA. RESPIRATIONS ARE EVEN AND UNLABORED. NO S/S PAIN NOTED. EXTERNAL TELE MONITOR READS SINUS RHYTHM/ SINUS TACH HR 106. IV ACCESS IN LAC#18 RUNNING D5 1/2NS@75ML/HR. BILATERAL SOFT WRIST RESTRAINTS ARE PRESENT, GOOD CAP REFILL, NO REDNESS NOTED. BED IS LOW AND LOCKED, HOB ELEVATED IN SEMI FOWLERS, SIDE RAILS UP X3. CALL LIGHT WITHIN REACH. WILL CONTINUE TO MONITOR THROUGHOUT SHIFT.
[2020-10-24 20:00] VITALS: BP 113/76
[2020-10-24] MEDS: ATORVASTATIN 40 MG TABLET PO SCH (22:34)
[2020-10-25] VITALS: BP 112/75
--- NOTE | 2020-10-25 00:51 | NUR ---
telecommunications support note per sandal parts assembler vital 000 temp 97.2. patient given warm blankets.
[2020-10-25 04:00] VITALS: BP 126/80
--- NOTE | 2020-10-25 06:43 | NUR ---
SHREDDER OPERATOR CLOSING NOTE PATIENT RESTING IN BED. A/OX1-2, PERIODS OF CONFUSION, NEEDS FREQUENT REORIENTATION. REMAINS ON OXYGEN 40L/MIN VIA HIGH FLOW NASAL CANNULA. NO RESP DISTRESS. NO PAIN NOTED. TELE MONITOR READS SINUS RHYTHM. IV ACCESS MAINTAINED IN LAC#18. BILATERAL SOFT WRIST RESTRAINTS ARE MAINTAINED, GOOD CAP REFILL, SLIGHT PINKNESS IN SKIN NOTED. BED REMAINS LOW AND LOCKED, HOB ELEVATED IN SEMI FOWLERS, SIDE RAILS UP X3. CALL LIGHT WITHIN REACH. WILL ENDORSE TO NEXT SHIFT.
[2020-10-25 07:27] LABS: BASOPHILS % (AUTO) 0.2 % (0.0-2.0); EOSINOPHILS % (AUTO) 0.9 % (0.0-6.0); HEMATOCRIT 35 % (39-51); HEMOGLOBIN 12.2 g/dL (13.5-17.5); LYMPHOCYTES % (AUTO) 32.8 % (20.0-44.0); MEAN CORPUSCULAR HGB CONC 35 g/dl (31.0-36.0); MEAN CORPUSCULAR VOLUME 98 fL (80-96); MONOCYTES # (AUTO) 1.2 /CMM (0.1-1.30); NEUTROPHILS # (AUTO) 4.8 /CMM (1.8-8.9); NEUTROPHILS % (AUTO) 53.1 % (43.0-81.0); PLATELET COUNT (AUTO) 376 /CMM (150-450); RED BLOOD CELL COUNT(AUTO) 3.56 MIL/uL (4.5-6.0); WHITE BLOOD COUNT (AUTO) 9.1 K/uL (4.3-11.0)
[2020-10-25 07:46] LABS: THYROID STIMULATING HORMONE 21.721 uIU/mL (0.358-3.74)
[2020-10-25 07:48] LABS: CALCIUM, SERUM 7.9 mg/dL (8.5-10.1); CREATININE 0.6 mg/dL (0.6-1.3); MAGNESIUM 1.5 mg/dL (1.8-2.4); PHOSPHORUS 2.4 mg/dL (2.5-4.9); POTASSIUM 3.6 mmol/L (3.5-5.1)
[2020-10-25] MEDS: DIVALPROEX SODIUM 500 MG TABLET.DR PO SCH ×3 (08:51→16:33)
[2020-10-25] MEDS: GABAPENTIN 300 MG CAPSULE PO SCH ×4 (08:51→21:02)
[2020-10-25] MEDS: CYCLOBENZAPRINE 10 MG TABLET PO SCH ×3 (08:51→16:33)
[2020-10-25] MEDS: LEVOTHYROXINE SODIUM 75 MCG TABLET PO SCH (08:51)
[2020-10-25] MEDS: FAMOTIDINE/PF INJ 20 MG/2 ML VIAL IV SCH (08:52)
[2020-10-25] MEDS: MIRTAZAPINE 15 MG TABLET PO SCH (08:52)
[2020-10-25] MEDS: DEXAMETHASONE SOD PHOSPHATE 10 MG/ML VIAL IV SCH (08:52)
[2020-10-25] MEDS: DULOXETINE HCL 30 MG CAPSULE.DR PO SCH (08:54)
[2020-10-25 12:00] VITALS: BP 133/77
--- NOTE | 2020-10-25 12:00 | NUR ---
NUT AND BOLT ASSEMBLER NOTES PATIENT COMPLETED HD TOLERATED WELL NO FLUIDS REMOVED. WILL CONTINUE TO MONITOR.
[2020-10-25] MEDS: Magnesium 1GM/D5W 100ML PREMIX 100 ML IV SCH ×2 (12:31→14:37)
[2020-10-25 12:55] LABS: C-REACTIVE PROTEIN 2.2 mg/dL (0.0-0.9)
[2020-10-25 16:11] VITALS: BP 108/59
[2020-10-25] MEDS ORDERED: K PHOS NEUTRAL 250 MG TABLET PO ONE (17:00)
[2020-10-25] MEDS: ENOXAPARIN SODIUM 40 MG/0.4 ML DISP.SYRIN SQ SCH (17:28)
--- NOTE | 2020-10-25 18:42 | NUR ---
FIRE TOWER KEEPER NOTES PATIENT IN BED RESTING NO SOB OR ACUTE DISTRESS NOTED. PATIENT ALERT, ORIENTED X1 CONFUSED. ALL DUE MEDICATIONS ADMINISTERED. ALL NEEDS MET. SAFETY MEASURES IN PLACE WILL ENDORSE CARE TO PM SHIFT.
--- NOTE | 2020-10-25 19:00 | NUR ---
rn labor and delivery opening notes received patient in bed awake alert and oriented x 1-2 able to make simple needs known, on high flow 02 at 40liters /fi02 60%, tolerating well, continuous pulse ox at bedside sating at 96%. on cardiac technologist sr 74, iv site to left ac intact and patent. bilateral wrist restraints in place , skin wnl, circulation present, pulses present, oriented to staff and call light and kept within reach, low bed and locked, bed alarm in place, remains comfortable will continue to monitor.
[2020-10-25 20:00] VITALS: BP 104/68
[2020-10-25] MEDS: ATORVASTATIN 40 MG TABLET PO SCH (21:02)
--- NOTE | 2020-10-25 21:36 | NUR ---
alternative financing specialist notes new order received from dr gonsalez to renew restraints to bilateral wrist soft wrist restraints, pt is on highflow 02 with attempts to remove.
[2020-10-26 00:13] VITALS: BP 114/78
[2020-10-26 04:00] VITALS: BP 118/79
--- NOTE | 2020-10-26 06:43 | NUR ---
brand marketing intern closing notes patient in bed awake alert and oriented x 1-2 able to make simple needs known, on high flow 02 at 40liters /fi02 60%, tolerating well, continuous pulse ox at bedside sating at 96%. on conveyor monitor sr 72, iv site to right ac intact and patent. iv site to left ac removed noted leaking when flushed, bilateral wrist restraints in place , skin wnl, circulation present, pulses present, oriented to staff and call light and kept within reach, low bed and locked, bed alarm in place, remains comfortable will continue to monitor and endorse to next shift.
[2020-10-26 08:00] VITALS: BP 121/74
--- NOTE | 2020-10-26 08:00 | NUR ---
TELE/RN OPENING NOTE THE PATIENT IS RECEIVED IN BED. PATIENT IS ALERT AND ORIENTED TO SELF, ABLE TO MAKE NEEDS KNOWN VERBALLY. DENIES PAIN. PATIENT IS ON HIGH FLOW 40L FIO2 60%. THE PATIENT DENIES SOB. RESPIRATION IS REGULAR AND UNLABORED. TELE BOX READING IS SR 68. THE PATIENT IS ON BILATERAL SOFT WRIST RESTRAINS. SKIN ASSESSMENT DONE AND NO SKIN BREAKDOWN NOTED, NO S/S POOR CIRCULATION NOTED. RAC G 18 PATENT AND SALINE LOCKED. BED LOW AND LOCKED. SIDE RAILS UP X3. CALL LIGHT WITHIN REACH. WILL CONTINUE TO MONITOR.
[2020-10-26 08:52] LABS: CALCIUM, SERUM 8.1 mg/dL (8.5-10.1); CREATININE 0.7 mg/dL (0.6-1.3); MAGNESIUM 1.8 mg/dL (1.8-2.4); PHOSPHORUS 2.8 mg/dL (2.5-4.9); POTASSIUM 3.6 mmol/L (3.5-5.1)
[2020-10-26] MEDS: DEXAMETHASONE SOD PHOSPHATE 10 MG/ML VIAL IV SCH (08:54)
[2020-10-26] MEDS: GABAPENTIN 300 MG CAPSULE PO SCH ×4 (08:54→22:21)
[2020-10-26] MEDS: CYCLOBENZAPRINE 10 MG TABLET PO SCH ×3 (08:54→18:05)
[2020-10-26] MEDS: DIVALPROEX SODIUM 500 MG TABLET.DR PO SCH ×3 (08:54→18:05)
[2020-10-26] MEDS: PANTOPRAZOLE 40 MG/PACK PACK PO SCH (08:54)
[2020-10-26] MEDS: DULOXETINE HCL 30 MG CAPSULE.DR PO SCH (08:54)
[2020-10-26] MEDS: MIRTAZAPINE 15 MG TABLET PO SCH (08:55)
[2020-10-26] MEDS: LEVOTHYROXINE SODIUM 75 MCG TABLET PO SCH (08:55)
[2020-10-26 12:29] LABS: C-REACTIVE PROTEIN 1.9 mg/dL (0.0-0.9)
[2020-10-26 16:00] VITALS: BP 111/66
[2020-10-26] MEDS: ENOXAPARIN SODIUM 40 MG/0.4 ML DISP.SYRIN SQ SCH (18:08)
--- NOTE | 2020-10-26 18:35 | NUR ---
TELE/RN CLOSING NOTE THE PATIENT IS ALERT AND ORIENTED X1. DENIES PAIN. ON HIGH FLOW 40L FIO2 60%. THE PATIENT DENIES SOB. RESPIRATION IS REGULAR AND UNLABORED. TELE BOX READING IS SR. BILATERAL SOFT WRIST RESTRAINS OM PER ORDER AND NO SKIN DISCOLORATION/BREAKDOWN OR S/S POOR CIRCULATION NOTED. BED LOW AND LOCKED. SIDE RAILS UP X3. CALL LIGHT WITHIN REACH. WILL ENDORSE TO NIGHTS SHIFT.
--- NOTE | 2020-10-26 19:30 | NUR ---
RN OPENING NOTES: RECEIVED PT A/OX 2 IN BED SLEEPING COMFORTABLY. PATIENT IN NO S/SX OF ACUTE DISTRESS AT THIS TIME. NO SOB NOTED. PATIENT'S BREATHING IS EVEN AND UNLABORED. PATIENT IS ON HIGH FLOW 40L 60% FIO2 VIA NC ; TOLERATING WELL. PATIENT ON TELE MONITORING READING SINUS RHYTHM HR IS @90s. NOTED IV SITE ON L AC#20 AND R AC#18;PATENT, INTACT AND FLUSHING WELL; NO S/S OF INFECTION OR INFILTRATION. BILATERAL SOFT WRIST RESTRAINTS IN PLACE, ASSESSED PER PROTOCOL.SAFETY MEASURES HAVE BEEN PROVIDED AND IMPLEMENTED. PATIENT BED ALARM IS ON. HEAD OF BED ELEVATED. BED IS LOCKED, IN LOWEST POSITION AND SIDE RAILS UP. CALL LIGHT WITHIN REACH OF THE PATIENT. APPLICABLE ISOLATION PRECAUTIONS IN PLACE. WILL CONTINUE TO MONITOR AND REASSESS FOR ANY CHANGES AND WILL CARRY OUT ANY ONGOING AND ACTIVE MD ORDER. Addendum: 10/28/20 at 0245 by DIANA HAJI RN PLS DISREGARD WRONG NOTES
--- NOTE | 2020-10-26 19:30 | NUR ---
RN OPENING NOTES: RECEIVED PT A/OX1-2 IN BED RESTING COMFORTABLY. PATIENT IN NO S/SX OF ACUTE DISTRESS AT THIS TIME. NO SOB NOTED. PATIENT'S BREATHING IS EVEN AND UNLABORED. PATIENT IS ON HIGH FLOW 40L VIA NC ; TOLERATING WELL. PATIENT ON TELE MONITORING READING SINUS RHYTHM HR IS @80s. NOTED IV SITE ON L AC#20 AND R AC#18;PATENT, INTACT AND FLUSHING WELL; NO S/S OF INFECTION OR INFILTRATION. BILATERAL SOFT WRIST RESTRAINTS IN PLACE, ASSESSED PER PROTOCOL.SAFETY MEASURES HAVE BEEN PROVIDED AND IMPLEMENTED. PATIENT BED ALARM IS ON. HEAD OF BED ELEVATED. BED IS LOCKED, IN LOWEST POSITION AND SIDE RAILS UP. CALL LIGHT WITHIN REACH OF THE PATIENT. APPLICABLE ISOLATION PRECAUTIONS IN PLACE. WILL CONTINUE TO MONITOR AND REASSESS FOR ANY CHANGES AND WILL CARRY OUT ANY ONGOING AND ACTIVE MD ORDER.
[2020-10-26 20:00] VITALS: BP 109/70
[2020-10-26] MEDS: ATORVASTATIN 40 MG TABLET PO SCH (22:21)
--- NOTE | 2020-10-26 23:00 | NUR ---
RN NOTES PATIENT REMAINS IN NO ACUTE RESPIRATORY DISTRESS AT THIS TIME, NO CHANGES TO CONDITION/STATUS. ACCOUNT EXECUTIVE AGRIBUSINESS WELL AWARE. WILL CONTINUE TO MONITOR AND REASSESS FOR ANY CHANGES THROUGHOUT THE SHIFT
[2020-10-27] VITALS: BP 118/67
--- NOTE | 2020-10-27 03:00 | NUR ---
RN NOTES NO CHANGE IN PATIENT CONDITION AT THIS TIME PATIENT VITALS STABLE, NO SIGNS OF ACUTE RESPIRATORY DISTRESS. CLINICAL NURSING ASSISTANT MADE AWARE. WILL CONTINUE TO MONITOR AND REASSESS FOR ANY CHANGES THROUGHOUT THE SHIFT.
[2020-10-27 04:00] VITALS: BP_SYST 104; BP_SYST 114; BP_DIAS 72; BP_DIAS 76
--- NOTE | 2020-10-27 07:08 | NUR ---
RN CLOSING NOTE: PATIENT REMAINS IN ROOM IN NO SIGNS OF RESPIRATORY DISTRESS. SAFETY MEASURES IMPLEMENTED, BED IN LOWEST POSITION, LOCKED, SIDE RAILS UP, CALL LIGHT WITHIN REACH. ALL NEEDS AND ORDERS ADDRESSED DURING THE SHIFT. IV ACCESS MAINTAINED INTACT, SECURED AND FLUSHING WELL. ALL DUE MEDS GIVEN ORDERED & SCHEDULED ; PATIENT TOLERATED WELL. PATIENT KEPT CLEAN AND COMFORTABLE WITHIN THE SHIFT. ENDORSED TO INCOMING SHIFT RN FOR CONTINUITY OF CARE.
--- NOTE | 2020-10-27 07:30 | NUR ---
RN OPENING NOTE PATIENT PRESENT AT BED, A/OX4, RELAXED, ON HF NC FIO2 50%, SPO2 IS 99%, NO SOB, DISTRESS NOTED. IV LINES NOTED BILATERAL ON R AND L AC, PATENT AND INTACT, NSR ON TELEMONITOR. SAFETY MEASURES IN PLACE, BED IS LOCKED, IN LOWEST POSITION, CALL LIGHT IN REACH, WILL ENDORSE TO PM SHIFT RN
[2020-10-27 07:32] LABS: BASOPHILS % (AUTO) 0.1 % (0.0-2.0); EOSINOPHILS % (AUTO) 0.8 % (0.0-6.0); HEMATOCRIT 36 % (39-51); HEMOGLOBIN 12.4 g/dL (13.5-17.5); LYMPHOCYTES # (AUTO) 3.1 /CMM (0.8-4.8); LYMPHOCYTES % (AUTO) 37.8 % (20.0-44.0); MEAN CORPUSCULAR HGB CONC 35 g/dl (31.0-36.0); MEAN CORPUSCULAR VOLUME 99 fL (80-96); MONOCYTES # (AUTO) 0.9 /CMM (0.1-1.30); MONOCYTES % (AUTO) 10.9 % (2.0-12.0); NEUTROPHILS # (AUTO) 4.1 /CMM (1.8-8.9); NEUTROPHILS % (AUTO) 50.4 % (43.0-81.0); PLATELET COUNT (AUTO) 471 /CMM (150-450); RED BLOOD CELL COUNT(AUTO) 3.65 MIL/uL (4.5-6.0); WHITE BLOOD COUNT (AUTO) 8.2 K/uL (4.3-11.0)
[2020-10-27 08:00] VITALS: BP 114/76
[2020-10-27] MEDS: PANTOPRAZOLE 40 MG/PACK PACK PO SCH (08:09)
[2020-10-27] MEDS: MIRTAZAPINE 15 MG TABLET PO SCH (08:09)
[2020-10-27] MEDS: LEVOTHYROXINE SODIUM 75 MCG TABLET PO SCH (08:10)
[2020-10-27] MEDS: DULOXETINE HCL 30 MG CAPSULE.DR PO SCH (08:10)
[2020-10-27] MEDS: DIVALPROEX SODIUM 500 MG TABLET.DR PO SCH ×3 (08:10→17:45)
[2020-10-27] MEDS: GABAPENTIN 300 MG CAPSULE PO SCH ×4 (08:10→21:07)
[2020-10-27] MEDS: DEXAMETHASONE SOD PHOSPHATE 10 MG/ML VIAL IV SCH (08:10)
[2020-10-27] MEDS: CYCLOBENZAPRINE 10 MG TABLET PO SCH ×3 (08:10→17:45)
[2020-10-27 08:38] LABS: CALCIUM, SERUM 8.3 mg/dL (8.5-10.1); CREATININE 0.7 mg/dL (0.6-1.3); PHOSPHORUS 3.1 mg/dL (2.5-4.9)
[2020-10-27 12:00] VITALS: BP 126/83
[2020-10-27 13:11] LABS: EOSINOPHILS % (MANUAL) 1 % (0-4); LYMPHOCYTES % (MANUAL) 30 % (16-48); MONOCYTES % (MANUAL) 13 % (0-11.0); NEUTROPHILS % (MANUAL) 56 (42-76)
[2020-10-27 16:00] VITALS: BP 99/65
[2020-10-27] MEDS: ENOXAPARIN SODIUM 40 MG/0.4 ML DISP.SYRIN SQ SCH (17:46)
--- NOTE | 2020-10-27 19:30 | NUR ---
RN OPENING NOTES: RECEIVED PT A/OX 2 IN BED SLEEPING COMFORTABLY. PATIENT IN NO S/SX OF ACUTE DISTRESS AT THIS TIME. NO SOB NOTED. PATIENT'S BREATHING IS EVEN AND UNLABORED. PATIENT IS ON HIGH FLOW 40L 60% FIO2 VIA NC ; TOLERATING WELL. PATIENT ON TELE MONITORING READING SINUS RHYTHM HR IS @90s. NOTED IV SITE ON L AC#20 AND R AC#18;PATENT, INTACT AND FLUSHING WELL; NO S/S OF INFECTION OR INFILTRATION. BILATERAL SOFT WRIST RESTRAINTS IN PLACE, ASSESSED PER PROTOCOL.SAFETY MEASURES HAVE BEEN PROVIDED AND IMPLEMENTED. PATIENT BED ALARM IS ON. HEAD OF BED ELEVATED. BED IS LOCKED, IN LOWEST POSITION AND SIDE RAILS UP. CALL LIGHT WITHIN REACH OF THE PATIENT. APPLICABLE ISOLATION PRECAUTIONS IN PLACE. WILL CONTINUE TO MONITOR AND REASSESS FOR ANY CHANGES AND WILL CARRY OUT ANY ONGOING AND ACTIVE MD ORDER.
[2020-10-27 20:00] VITALS: BP 94/67
[2020-10-27] MEDS: ATORVASTATIN 40 MG TABLET PO SCH (21:07)
[2020-10-27] MEDS: LORAZEPAM INJ 2 MG/ML VIAL IV PRN (22:52)
--- NOTE | 2020-10-27 23:00 | NUR ---
RN NOTES PATIENT REMAINS IN NO ACUTE RESPIRATORY DISTRESS AT THIS TIME, NO CHANGES TO CONDITION/STATUS. LIQUEFACTION SUPERVISOR WELL AWARE. WILL CONTINUE TO MONITOR AND REASSESS FOR ANY CHANGES THROUGHOUT THE SHIFT
[2020-10-28] VITALS: BP_SYST 94; BP_DIAS 61; BP_DIAS 67
[2020-10-28 04:00] VITALS: BP 108/70
[2020-10-28 07:25] LABS: CALCIUM, SERUM 8.3 mg/dL (8.5-10.1); CREATININE 0.6 mg/dL (0.6-1.3); MAGNESIUM 2.7 mg/dL (1.8-2.4); POTASSIUM 3.9 mmol/L (3.5-5.1)
[2020-10-28 07:47] LABS: BASOPHILS % (AUTO) 0.2 % (0.0-2.0); EOSINOPHILS % (AUTO) 0.6 % (0.0-6.0); HEMATOCRIT 34 % (39-51); HEMOGLOBIN 11.7 g/dL (13.5-17.5); LYMPHOCYTES % (AUTO) 39.7 % (20.0-44.0); MEAN CORPUSCULAR HGB CONC 35 g/dl (31.0-36.0); MEAN CORPUSCULAR VOLUME 99 fL (80-96); MONOCYTES # (AUTO) 0.7 /CMM (0.1-1.30); MONOCYTES % (AUTO) 9.6 % (2.0-12.0); NEUTROPHILS # (AUTO) 3.8 /CMM (1.8-8.9); NEUTROPHILS % (AUTO) 49.9 % (43.0-81.0); PLATELET COUNT (AUTO) 445 /CMM (150-450); RED BLOOD CELL COUNT(AUTO) 3.41 MIL/uL (4.5-6.0); WHITE BLOOD COUNT (AUTO) 7.6 K/uL (4.3-11.0)
--- NOTE | 2020-10-28 07:50 | NUR ---
HOLE FILLER OPENING NOTES Patient is alert and responsive.No s/s of respirator distress. IV site free of infection and infiltration. 0n high flow o2 with 02 saturation of 96%. No c.o pain or discomfort. Soft restraints noted to bilateral wrists and circulation checked and no s/s of skin breakdown. Bed is in lowest and locked position. Call light with in reach.
[2020-10-28 08:00] VITALS: BP 113/70
[2020-10-28] MEDS: DIVALPROEX SODIUM 500 MG TABLET.DR PO SCH ×3 (09:49→16:54)
[2020-10-28] MEDS: DULOXETINE HCL 30 MG CAPSULE.DR PO SCH (09:49)
[2020-10-28] MEDS: MIRTAZAPINE 15 MG TABLET PO SCH (09:50)
[2020-10-28] MEDS: CYCLOBENZAPRINE 10 MG TABLET PO SCH ×3 (09:50→16:54)
[2020-10-28] MEDS: GABAPENTIN 300 MG CAPSULE PO SCH ×4 (09:50→22:25)
[2020-10-28] MEDS: PANTOPRAZOLE 40 MG/PACK PACK PO SCH (09:50)
[2020-10-28] MEDS: LEVOTHYROXINE SODIUM 75 MCG TABLET PO SCH (09:54)
[2020-10-28 12:00] VITALS: BP 108/69
--- NOTE | 2020-10-28 12:00 | NUR ---
ZOOGLER NOTES Patient's high flow was switched to nasal canula at 5/6 liters per RT, 02 saturation of 94-98%. No s/s of respiratory depression or distress. Will continue to monitor for toleration. Head of bed kept elevated.
[2020-10-28 13:08] LABS: BAND % (MANUAL) 3 % (0.0-5.0); LYMPHOCYTES % (MANUAL) 43 % (16-48); MONOCYTES % (MANUAL) 7 % (0-11.0); MYELOCYTES % 2 % (0-0); NEUTROPHILS % (MANUAL) 45 (42-76)
[2020-10-28 13:36] LABS: ABG OXYGEN SATURATION 96.1 % (92.0-98.5); ABG PCO2 33.9 mmHg (35.0-45.0); AaDO2 169.2 mmHg; COHb 0.7 % (0.5-1.5); O2Hb 95.4 % (94.0-97.0); SITE, ABG Right Radial
[2020-10-28 16:00] VITALS: BP 112/78
[2020-10-28] MEDS: ENOXAPARIN SODIUM 40 MG/0.4 ML DISP.SYRIN SQ SCH (17:05)
--- NOTE | 2020-10-28 18:00 | NUR ---
HAND SILVERING SUPERVISOR NOTES PATIENT NOTED WITH 02 SATURATION FLUCTUATING FROM 70'S TO 80'S. CALLED RT, ABG'S DONE AND RESULTS RELAYED TO DR BARTON. PER MD TO POSITION PATIENT ON HIS SIDE AND CALL CONCRETE BLOCK MASON. CALLED CONCRETE BLOCK MASON AND PATIENT PLACED BACK ON HIGH FLOW AND NON REBREATHER. 02 SATURATION OF 97% AND NO RESPIRATORY DISTRESS. WILL ENDORSE TO NEXT SHIFT TO MONITOR.
[2020-10-28 19:48] LABS: ABG BASE EXCESS 2.9 mmol/L; ABG PH 7.471 (7.350-7.450); ABG PO2 46.6 mmHg (75.0-100.0); AaDO2 629.4 mmHg; COHb 0.2 % (0.5-1.5); MetHb 0.2 % (0.0-1.5); O2Hb 82.7 % (94.0-97.0); SITE, ABG Left Radial; VENT MODE, BG HFNC
--- NOTE | 2020-10-28 19:50 | NUR ---
FORMULA MAKER CLOSING NOTES Patient is alert and responsive.No s/s of respirator distress. IV site free of infection and infiltration. 0n high flow o2 with 02 along with non rebreather mask with saturation of 98%. No c.o pain or discomfort. Bed is in lowest and locked position. Call light with in reach.
[2020-10-28 20:00] VITALS: BP 91/60
[2020-10-28] MEDS: ATORVASTATIN 40 MG TABLET PO SCH (22:25)
[2020-10-29] VITALS: BP 94/62
[2020-10-29 04:00] VITALS: BP 104/72
[2020-10-29 06:21] LABS: BASOPHILS % (AUTO) 0.4 % (0.0-2.0); EOSINOPHILS % (AUTO) 0.7 % (0.0-6.0); HEMATOCRIT 34 % (39-51); LYMPHOCYTES # (AUTO) 2.5 /CMM (0.8-4.8); MEAN CORPUSCULAR HGB CONC 36 g/dl (31.0-36.0); MEAN CORPUSCULAR VOLUME 98 fL (80-96); MONOCYTES # (AUTO) 0.6 /CMM (0.1-1.30); MONOCYTES % (AUTO) 6.8 % (2.0-12.0); NEUTROPHILS # (AUTO) 5.2 /CMM (1.8-8.9); NEUTROPHILS % (AUTO) 62.1 % (43.0-81.0); PLATELET COUNT (AUTO) 473 /CMM (150-450); RED BLOOD CELL COUNT(AUTO) 3.45 MIL/uL (4.5-6.0); WHITE BLOOD COUNT (AUTO) 8.4 K/uL (4.3-11.0)
--- NOTE | 2020-10-29 07:10 | NUR ---
MILKING MACHINE OPERATOR CLOSING NOTES Patient is a/o, able to verbalized needs and concerns, No s/s of respirator distress throughout the night, cont high flow o2 with 02 and non rebreather mask with saturation >94-100%, will endorse to oncoming nurse for continuation of care.
[2020-10-29 07:25] LABS: CALCIUM, SERUM 8.5 mg/dL (8.5-10.1); CREATININE 0.7 mg/dL (0.6-1.3); MAGNESIUM 1.6 mg/dL (1.8-2.4); PHOSPHORUS 3.1 mg/dL (2.5-4.9)
--- NOTE | 2020-10-29 07:25 | NUR ---
RN OPENING NOTE PATIENT IN BED RESTING COMFORTABLY. PATIENT IN NO ACUTE DISTRESS. NO SOB NOTED. PATIENT BREATHING IS EVEN AND UNLABORED. PATIENT IS ON HIGH FLOW O2 THERAPY VIA NC AT 60 LPM AND 405 FIO2 SATTING 97%. PATIENT TOLERATING O2 THERAPY WELL. DENIES PAIN. NO ACUTE DISTRESS NOTED AT THIS TIME. PATIENT LEFT AC #20 G AND RIGHT AC # 2O G INTACT AND PATENT. TELE READING NSR 80'S. SAFETY PRECAUTIONS IMPLEMENTED, BED LOCKED IN LOWEST POSITION, SIDE RAILS UP X2, CALL LIGHT WITHIN REACH. WILL CONTINUE TO MONITOR AND PROVIDE CARE.
[2020-10-29 08:00] VITALS: BP 96/61
[2020-10-29] MEDS: LEVOTHYROXINE SODIUM 75 MCG TABLET PO SCH (08:19)
[2020-10-29] MEDS: CYCLOBENZAPRINE 10 MG TABLET PO SCH ×3 (08:20→17:20)
[2020-10-29] MEDS: PANTOPRAZOLE 40 MG/PACK PACK PO SCH (08:20)
[2020-10-29] MEDS: GABAPENTIN 300 MG CAPSULE PO SCH ×4 (08:25→21:29)
[2020-10-29] MEDS: MIRTAZAPINE 15 MG TABLET PO SCH (08:25)
[2020-10-29] MEDS: DULOXETINE HCL 30 MG CAPSULE.DR PO SCH (08:26)
[2020-10-29] MEDS: DIVALPROEX SODIUM 500 MG TABLET.DR PO SCH ×3 (08:26→17:20)
--- NOTE | 2020-10-29 09:42 | NUR ---
MOBILE SECURITY ARCHITECT NOTE SPOKE WITH DAYANA SULLIVAN AND INFORMED HER PATIENT WITH HEADACHES REQUESTING TYLENOL. TYLENOL IS SUPPOSITORY PRN AND REQUESTED TO CHANGE TO PO. MD ORDER TO CHANGE TYLENOL TO PO 650MG PRN Q6H.
[2020-10-29] MEDS: ACETAMINOPHEN 325 MG TABLET PO PRN (10:07)
[2020-10-29] MEDS: Magnesium 1GM/D5W 100ML PREMIX 100 ML IV SCH ×2 (10:28→11:48)
[2020-10-29 12:00] VITALS: BP 98/63
[2020-10-29 16:00] VITALS: BP 112/68
[2020-10-29] MEDS: ENOXAPARIN SODIUM 40 MG/0.4 ML DISP.SYRIN SQ SCH (17:49)
--- NOTE | 2020-10-29 18:50 | NUR ---
GLASS BEAD MAKER CLOSING NOTE PATIENT IN BED RESTING COMFORTABLY. PATIENT IN NO ACUTE DISTRESS. NO SOB NOTED. PATIENT BREATHING IS EVEN AND UNLABORED. PATIENT KEPT CLEAN, DRY, AND COMFORTABLE THROUGHOUT SHIFT. NEEDS AND CONCERNS ADDRESSED. PATIENT WITH SOFT BILATERAL WRIST RESTRAINTS, NOTED WITH GOOD CIRCULATION. PATIENT BED IS LOCKED AND IN LOWEST POSITION. CALL LIGHT WITHIN REACH. WILL ENDORSE CARE TO PM SHIFT FOR JORDY.
--- NOTE | 2020-10-29 19:12 | NUR ---
RN NOTES PATIENT A/O X 1-2 WITH CONFUSION. NO SOB OR ANY RESPIRATORY DISTRESS ON HIGH FLOW 40L O2 AND NON REBREATHER MASK, O2 SATURATION 97%. TELE MONITOR ON, NSR. NO S/S OF ANY DISCOMFORT. WITH RIGHT AC #20 PATENT AND INTACT. WITH BILATERAL SOFT WRIST RESTRAINTS, NO S/S OF SKIN BREAKDOWN, CIRCULATION CHECKED. CALL LIGHT WITHIN REACH. BED LOCKED AND IN LOWEST POSITION. SIDE RAILS UP X2. SAFETY MEASURES IMPLEMENTED. WILL CONTINUE TO MONITOR.
[2020-10-29 20:00] VITALS: BP 100/59
[2020-10-29 20:29] LABS: URINE SODIUM, RANDOM 26 mmol/l (40-220)
[2020-10-29 20:37] LABS: OSMOLALITY,URINE 264 mOS/kg (340-1090)
[2020-10-29] MEDS: LORAZEPAM INJ 2 MG/ML VIAL IV PRN (21:29)
[2020-10-29] MEDS: ATORVASTATIN 40 MG TABLET PO SCH (21:29)
[2020-10-30] VITALS: BP 105/60
[2020-10-30 04:00] VITALS: BP 92/63
[2020-10-30 06:24] LABS: BASOPHILS % (AUTO) 0.6 % (0.0-2.0); EOSINOPHILS % (AUTO) 1.3 % (0.0-6.0); HEMATOCRIT 32 % (39-51); HEMOGLOBIN 11.3 g/dL (13.5-17.5); LYMPHOCYTES # (AUTO) 2.2 /CMM (0.8-4.8); LYMPHOCYTES % (AUTO) 33.6 % (20.0-44.0); MEAN CORPUSCULAR HGB CONC 35 g/dl (31.0-36.0); MEAN CORPUSCULAR VOLUME 99 fL (80-96); MONOCYTES # (AUTO) 0.4 /CMM (0.1-1.30); MONOCYTES % (AUTO) 6.2 % (2.0-12.0); NEUTROPHILS # (AUTO) 3.7 /CMM (1.8-8.9); NEUTROPHILS % (AUTO) 58.3 % (43.0-81.0); PLATELET COUNT (AUTO) 405 /CMM (150-450); RED BLOOD CELL COUNT(AUTO) 3.24 MIL/uL (4.5-6.0); WHITE BLOOD COUNT (AUTO) 6.4 K/uL (4.3-11.0)
--- NOTE | 2020-10-30 06:46 | NUR ---
RN NOTES PATIENT A/O X 1-2 WITH CONFUSION. NO SOB OR ANY RESPIRATORY DISTRESS ON HIGH FLOW 40L FIO2 45%, O2 SATURATION 94%. TELE MONITOR ON, NSR. WITH RIGHT AC #20 PATENT AND INTACT. WITH BILATERAL SOFT WRIST RESTRAINTS, NO S/S OF SKIN BREAKDOWN, CIRCULATION CHECKED. ALL DUE MEDS GIVEN ORDERED AND TOLERATED WELL. CALL LIGHT WITHIN REACH. BED LOCKED AND IN LOWEST POSITION. SIDE RAILS UP X2. SAFETY MEASURES IMPLEMENTED. WILL ENDORSE TO NEXT SHIFT.
--- NOTE | 2020-10-30 07:30 | NUR ---
PT RECEIVED IN BED ALERT AND ORIENTED X1-2 WITH CONFUSION. PT ON HIGH FLOW 40L/50%, O2 SAT 95%. NO SOB. PT BEDREST WITH BILATERAL SOFT WRIST RESTRAINTS. PT RAC 20 INTACT AND FLUSHED WELL. ALL SAFETY MEASURES IN PLACE. WILL CONTINUE TO MONITOR CLOSELY
[2020-10-30 08:06] LABS: ALBUMIN 1.8 g/dL (3.4-5.0); BILIRUBIN,TOTAL 0.3 mg/dL (0.2-1.0); CALCIUM, SERUM 7.8 mg/dL (8.5-10.1); CREATININE 0.7 mg/dL (0.6-1.3); MAGNESIUM 1.7 mg/dL (1.8-2.4); PHOSPHORUS 2.7 mg/dL (2.5-4.9); POTASSIUM 3.4 mmol/L (3.5-5.1); TOTAL PROTEIN, SERUM 5.4 g/dL (6.4-8.2)
[2020-10-30 08:57] VITALS: BP 98/67
[2020-10-30] MEDS ORDERED: POTASSIUM CHLORIDE 20 MEQ TAB.PRT.SR PO SCH (09:30)
[2020-10-30] MEDS: DIVALPROEX SODIUM 500 MG TABLET.DR PO SCH ×3 (10:14→17:27)
[2020-10-30] MEDS: MIRTAZAPINE 15 MG TABLET PO SCH (10:15)
[2020-10-30] MEDS: CYCLOBENZAPRINE 10 MG TABLET PO SCH ×3 (10:15→17:27)
[2020-10-30] MEDS: LEVOTHYROXINE SODIUM 75 MCG TABLET PO SCH (10:15)
[2020-10-30] MEDS: PANTOPRAZOLE 40 MG/PACK PACK PO SCH (10:15)
[2020-10-30] MEDS: DULOXETINE HCL 30 MG CAPSULE.DR PO SCH (10:15)
[2020-10-30] MEDS: GABAPENTIN 300 MG CAPSULE PO SCH ×4 (10:16→22:17)
[2020-10-30] MEDS: Magnesium 1GM/D5W 100ML PREMIX 100 ML IV SCH ×2 (10:16→11:33)
[2020-10-30 12:26] VITALS: BP 94/62
[2020-10-30] MEDS: ENOXAPARIN SODIUM 40 MG/0.4 ML DISP.SYRIN SQ SCH (17:28)
[2020-10-30 19:23] VITALS: BP 113/79
--- NOTE | 2020-10-30 19:30 | NUR ---
PT REMAINS IN BED ON UNCHANGED HIGH FLOW SETTINGS. PT CONSUMED APPROXIMATELY 75% OF MEALS THIS SHIFT. PT HAD 1X BM AND 3X VOIDS. IV SITE REMAINS INTACT, NO SIGNS OF INFECTION OR INFILTRATION. ALL NEEDS ENDORSED TO SAJI SPENCE
--- NOTE | 2020-10-30 19:40 | NUR ---
CONFIGURATION MANAGEMENT ADVISOR NOTES, RECEIVED PATIENT IN BED ALERT, ORIENTED X2 ABLE TO VERBALIZED NEEDS, INTERMITTENT CONFUSION. PT ON HIGH FLOW 40L/50%, O2 SAT> 95%, NO ACUTE DISTRESS/SOB NOTED, SNR IN TELE MONITOR WITH HR 70S AT THI TIME, IV SITE RAC 20, PATENT AND INTACT, ON BILATERAL SOFT WRIST RESTRAINTS, NO CIRCULATION COMPROMISED, OR ABNORMALITY NOTED, ALL SAFETY MEASURES IN PLACE. 2X S/R UP, BED LOCKED AND LOWEST POSITION, CALL LIGHT W/I REACH, WILL CONTINUE TO MONITOR CLOSELY.
[2020-10-30 20:00] VITALS: BP 110/81
[2020-10-30] MEDS: ATORVASTATIN 40 MG TABLET PO SCH (22:16)
[2020-10-31] VITALS: BP 97/66
[2020-10-31 04:00] VITALS: BP 97/63
[2020-10-31 06:06] LABS: BASOPHILS % (AUTO) 0.8 % (0.0-2.0); EOSINOPHILS % (AUTO) 1.8 % (0.0-6.0); HEMATOCRIT 34 % (39-51); HEMOGLOBIN 11.5 g/dL (13.5-17.5); LYMPHOCYTES % (AUTO) 33.9 % (20.0-44.0); MEAN CORPUSCULAR HGB CONC 34 g/dl (31.0-36.0); MEAN CORPUSCULAR VOLUME 100 fL (80-96); MONOCYTES # (AUTO) 0.6 /CMM (0.1-1.30); MONOCYTES % (AUTO) 9.6 % (2.0-12.0); NEUTROPHILS # (AUTO) 3.1 /CMM (1.8-8.9); NEUTROPHILS % (AUTO) 53.9 % (43.0-81.0); PLATELET COUNT (AUTO) 401 /CMM (150-450); RED BLOOD CELL COUNT(AUTO) 3.36 MIL/uL (4.5-6.0); WHITE BLOOD COUNT (AUTO) 5.8 K/uL (4.3-11.0)
--- NOTE | 2020-10-31 06:38 | NUR ---
RN NOTES, PATIENT IN BED ASLEEP,WITH ADEQUATE HOURS OF SLEEP THROUGHOUT THE NIGHT, CONT ON HIGH FLOW 40L 50% FIO2, TOLERATE WELL WITH O2 SAT LEVEL >94%, CONTINUE NSR WITH HR INN 60-70 MOST OF THE NIGHT, NO CHANGE IN CONDITION DURING THE NIGHT, ALL NEEDS PROVIDED, WILL ENDORSED TO ONCOMING NURSE FOR CONTINUATION OF CARE.
[2020-10-31 07:31] LABS: CALCIUM, SERUM 8.1 mg/dL (8.5-10.1); CREATININE 0.7 mg/dL (0.6-1.3); MAGNESIUM 1.9 mg/dL (1.8-2.4); PHOSPHORUS 2.7 mg/dL (2.5-4.9); POTASSIUM 3.7 mmol/L (3.5-5.1)
[2020-10-31 08:08] VITALS: BP 97/62
[2020-10-31] MEDS: GABAPENTIN 300 MG CAPSULE PO SCH ×4 (09:59→22:39)
[2020-10-31] MEDS: MIRTAZAPINE 15 MG TABLET PO SCH (10:00)
[2020-10-31] MEDS: CYCLOBENZAPRINE 10 MG TABLET PO SCH ×3 (10:00→19:37)
[2020-10-31] MEDS: DIVALPROEX SODIUM 500 MG TABLET.DR PO SCH ×3 (10:00→19:37)
[2020-10-31] MEDS: PANTOPRAZOLE 40 MG/PACK PACK PO SCH (10:01)
[2020-10-31] MEDS: LEVOTHYROXINE SODIUM 75 MCG TABLET PO SCH (10:01)
[2020-10-31] MEDS: ENOXAPARIN SODIUM 40 MG/0.4 ML DISP.SYRIN SQ SCH (10:10)
[2020-10-31] MEDS: DULOXETINE HCL 30 MG CAPSULE.DR PO SCH (10:12)
--- NOTE | 2020-10-31 10:34 | NUR ---
POT FLUXER OPENING NOTES PATIENT IN BED RESTING COMFORTABLY. A/O X3. NOT IN ANY ACUTE DISTRESS NOTED. PATIENT BREATHING IS EVEN AND UNLABORED. PATIENT IS ON HIGH FLOW O2 THERAPY VIA NC AT 60 LPM AND 405 FIO2 SATTING 97%. PATIENT TOLERATING O2 THERAPY WELL. PATIENT LEFT AC #20 G AND RIGHT AC # 2O G INTACT AND PATENT. TELE READING NSR 80'S. SAFETY PRECAUTIONS IMPLEMENTED, BED LOCKED IN LOWEST POSITION, SIDE RAILS UP X2, CALL LIGHT WITHIN REACH. WILL CONTINUE TO MONITOR.
[2020-10-31] MEDS: LACTOBACILLUS RHAMNOSUS GG 1 EACH CAP.SPRINK PO SCH ×2 (11:22→19:36)
[2020-10-31] MEDS ORDERED: TRAZODONE 50 MG TABLET PO PRN (11:30)
[2020-10-31 12:44] VITALS: BP 102/71
[2020-10-31] MEDS: QUETIAPINE FUMARATE 100 MG TABLET PO SCH ×3 (13:25→22:39)
[2020-10-31 16:24] VITALS: BP 90/61
--- NOTE | 2020-10-31 18:11 | NUR ---
REPORT GIVEN TO RENE FOR JORDY.
--- NOTE | 2020-10-31 19:30 | NUR ---
RN NOTE RECEIVED PT IN BED. ON HIGH FLOW 40L AT 50% SATING AT 98%. NO RESP DISTRESS NOTED. PT COMMUNICATING VERBALLY, AO X 2. ON TELE MONITORING NSR HR 95. WITH SOFT FELA WRIST RESTRAINT, CIRCULATION AND SKIN CHECKED.PT DENIES ANY PAIN. WITH R AC 20 G. PATENT AND INTACT, FLUSHED ASEPTICALLY WITH NS. SAFETY MEASURES IMPLEMENTED PER PROTOCOL. BED LOCKED IN LOWEST POSITION. SIDE RAILS UP. BED ALARM ON. CALL LIGHT WITHIN REACH.
[2020-10-31 20:00] VITALS: BP 94/60
[2020-10-31] MEDS: ATORVASTATIN 40 MG TABLET PO SCH (22:39)
[2020-11-01] VITALS (7 sets, daily range): BP systolic 92–187; BP diastolic 56–98
[2020-11-01 06:40] LABS: EOSINOPHILS % (AUTO) 2.5 % (0.0-6.0); HEMATOCRIT 28 % (39-51); HEMOGLOBIN 9.9 g/dL (13.5-17.5); LYMPHOCYTES # (AUTO) 2.1 /CMM (0.8-4.8); LYMPHOCYTES % (AUTO) 43.9 % (20.0-44.0); MEAN CORPUSCULAR HGB CONC 35 g/dl (31.0-36.0); MEAN CORPUSCULAR VOLUME 100 fL (80-96); MONOCYTES # (AUTO) 0.4 /CMM (0.1-1.30); MONOCYTES % (AUTO) 7.7 % (2.0-12.0); NEUTROPHILS # (AUTO) 2.1 /CMM (1.8-8.9); NEUTROPHILS % (AUTO) 44.9 % (43.0-81.0); PLATELET COUNT (AUTO) 325 /CMM (150-450); RED BLOOD CELL COUNT(AUTO) 2.84 MIL/uL (4.5-6.0); WHITE BLOOD COUNT (AUTO) 4.7 K/uL (4.3-11.0)
--- NOTE | 2020-11-01 06:59 | NUR ---
RN NOTES PT REMAINS IN BED. CONTINUE ON HIGH FLOW. RT CHANGED SETTINGS TO 35 L 45 % FIO2. PT TOLERATING WELL. NO DISTRESS NOTED. TELE MONITOR SHOWS SR HR 73. PT WITH BILATERAL SOFT WRIST RESTRAINTS, GOOD CIRCULATION NO SKIN BREAKDOWN NOTED. NO SIGNS OF PAIN NOR DISCOMFORT. ON FREQUENT VISUAL CHECK. ISOLATION PRECAUTION MAINTAINED. BED LOCKED IN LOWEST POSITION. CALL LIGHT WITHIN REACH. SIDE RAILS UP X 2. WILL ENDORSE TO NEXT SHIFT NURSE FOR JORDY.
[2020-11-01 07:07] LABS: CREATININE 0.7 mg/dL (0.6-1.3); MAGNESIUM 1.6 mg/dL (1.8-2.4); POTASSIUM 3.7 mmol/L (3.5-5.1)
--- NOTE | 2020-11-01 07:30 | NUR ---
TYPE PHOTOGRAPHY SUPERVISOR OPENING NOTES Patient is alert and oriented but forgetful. Patient is breathing even and unlabored. No s/s of respiratory distress. Per gasoline truck crane operator , he was on HFNC 35 LITERS AT 45% Fi02. At 724am, RT changed the settings of the high flow to 20 Liters at 40%. with 02 sat of 98%. No c/o pain or discomfort. Patient noted with right ac 20 gauze with no s/s of infiltration or infection. Soft restraints noted to bilateral wrists and noted with good circulation and no s/s of skin breakdown. Will continue to monitor. Call light with in reach.
[2020-11-01] MEDS: LEVOTHYROXINE SODIUM 75 MCG TABLET PO SCH (08:37)
[2020-11-01] MEDS: DULOXETINE HCL 30 MG CAPSULE.DR PO SCH (08:37)
[2020-11-01] MEDS: LACTOBACILLUS RHAMNOSUS GG 1 EACH CAP.SPRINK PO SCH ×2 (08:37→17:11)
[2020-11-01] MEDS: DIVALPROEX SODIUM 500 MG TABLET.DR PO SCH ×3 (08:37→17:11)
[2020-11-01] MEDS: CYCLOBENZAPRINE 10 MG TABLET PO SCH ×3 (08:38→17:11)
[2020-11-01] MEDS: QUETIAPINE FUMARATE 100 MG TABLET PO SCH ×4 (08:38→22:56)
[2020-11-01] MEDS: GABAPENTIN 300 MG CAPSULE PO SCH ×4 (08:38→22:55)
[2020-11-01] MEDS: PANTOPRAZOLE 40 MG/PACK PACK PO SCH (08:38)
[2020-11-01] MEDS: MIRTAZAPINE 15 MG TABLET PO SCH (08:38)
[2020-11-01] MEDS: Magnesium 1GM/D5W 100ML PREMIX 100 ML IV SCH ×2 (09:42→11:17)
[2020-11-01] MEDS: ENOXAPARIN SODIUM 40 MG/0.4 ML DISP.SYRIN SQ SCH (17:25)
--- NOTE | 2020-11-01 18:44 | NUR ---
TELE 1 RN CLOSING NOTES Patient is alert and oriented but forgetful and confused at times. Patient is breathing even and unlabored. Patient's 02 saturation noted to be 95% on 20 liters 02 via high flow with Fi02 of 34%. No s/sx of respiratory distress. No c/o pain or discomfort. Patient noted with right ac 20 gauze with no s/s of infiltration or infection. Soft restraints noted to bilateral wrists and noted with good circulation and no s/s of skin breakdown.HOB kept elevated. Patient kept clean and dry during shift. Call light with in reach.Will endorse to next shift for JORDY.
--- NOTE | 2020-11-01 19:30 | NUR ---
RN OPENING NOTE REPORT RECIEVED FROM CORBIN NOBLES. PT AXOX2 FORGETFUL AND CONFUSED AT TIMES, REORIENTED TO PLACE AND TIME. PT BREATHING UNLABORED IN NO ACUTE RESP DISTRESS. PT ON HFNC AT 20 LITERS AND FIO2 OF 34%. DENIES PAIN, RIGHT AC# 20 FLUSHED DRESSING INTACT NO S/S OF INFILTRATION. PATIENT HAS BILATERAL SOFT WRIST RESTRIAINTS CAP REFILL TO HANDS LESS THEN 3 SECONDS. NO SKIN DAMAGE AT SITES. CALL LIGHT PLACED WITHIN REACH. BED ALARM ACTIVE SRX3 WILL CONT TO MONITOR. ON CONT SPO2 MONITOR.
[2020-11-01] MEDS: ATORVASTATIN 40 MG TABLET PO SCH (22:55)
[2020-11-02] VITALS: BP 99/63
[2020-11-02 04:00] VITALS: BP 116/75
[2020-11-02 06:37] LABS: HEMATOCRIT 31 % (39-51); LYMPHOCYTES # (AUTO) 1.3 /CMM (0.8-4.8); LYMPHOCYTES % (AUTO) 30.4 % (20.0-44.0); MEAN CORPUSCULAR HGB CONC 35 g/dl (31.0-36.0); MEAN CORPUSCULAR VOLUME 100 fL (80-96); MONOCYTES # (AUTO) 0.3 /CMM (0.1-1.30); MONOCYTES % (AUTO) 8.1 % (2.0-12.0); NEUTROPHILS # (AUTO) 2.5 /CMM (1.8-8.9); NEUTROPHILS % (AUTO) 58.5 % (43.0-81.0); PLATELET COUNT (AUTO) 329 /CMM (150-450); RED BLOOD CELL COUNT(AUTO) 3.12 MIL/uL (4.5-6.0); WHITE BLOOD COUNT (AUTO) 4.3 K/uL (4.3-11.0)
[2020-11-02 07:23] LABS: CALCIUM, SERUM 8.2 mg/dL (8.5-10.1); CREATININE 0.8 mg/dL (0.6-1.3); MAGNESIUM 1.6 mg/dL (1.8-2.4); PHOSPHORUS 3.3 mg/dL (2.5-4.9); POTASSIUM 3.9 mmol/L (3.5-5.1)
--- NOTE | 2020-11-02 07:44 | NUR ---
VOCATIONAL TECHNICAL EDUCATION DIRECTOR OPENING NOTES Patient is alert and oriented but forgetful. Patient is breathing even and unlabored, no s/s of respiratory distress. Patient's 02 saturation noted to be 96% on 20 liters 02 via high flow with Fi02 of 34%. No s/sx of respiratory distress. No c/o pain or discomfort.HOB kept elevated to promote lung expansion and aspiration precaution. Soft restraints noted to bilateral wrists and noted with good circulation and no s/s of skin breakdown. Will continue to monitor. Call light with in reach.
[2020-11-02 08:00] VITALS: BP 119/79
[2020-11-02] MEDS: LACTOBACILLUS RHAMNOSUS GG 1 EACH CAP.SPRINK PO SCH ×2 (08:49→16:19)
[2020-11-02] MEDS: DULOXETINE HCL 30 MG CAPSULE.DR PO SCH (08:49)
[2020-11-02] MEDS: LEVOTHYROXINE SODIUM 75 MCG TABLET PO SCH (08:49)
[2020-11-02] MEDS: DIVALPROEX SODIUM 500 MG TABLET.DR PO SCH ×3 (08:50→16:20)
[2020-11-02] MEDS: PANTOPRAZOLE 40 MG/PACK PACK PO SCH (08:50)
[2020-11-02] MEDS: MIRTAZAPINE 15 MG TABLET PO SCH (08:50)
[2020-11-02] MEDS: QUETIAPINE FUMARATE 100 MG TABLET PO SCH ×4 (08:50→22:00)
[2020-11-02] MEDS: CYCLOBENZAPRINE 10 MG TABLET PO SCH ×3 (08:50→16:20)
[2020-11-02] MEDS: GABAPENTIN 300 MG CAPSULE PO SCH ×4 (08:50→22:01)
[2020-11-02] MEDS: Magnesium 1GM/D5W 100ML PREMIX 100 ML IV SCH ×2 (11:14→13:02)
[2020-11-02 12:00] VITALS: BP 100/68
[2020-11-02 16:00] VITALS: BP 99/67
[2020-11-02] MEDS: ENOXAPARIN SODIUM 40 MG/0.4 ML DISP.SYRIN SQ SCH (17:08)
--- NOTE | 2020-11-02 18:42 | NUR ---
TELE 1 RN CLOSING NOTES Patient is alert and oriented but forgetful and confused at times. Patient is breathing even and unlabored. Patient's 02 saturation noted to be 98% on 20 liters 02 via high flow with Fi02 of 34%. No s/sx of respiratory distress. No c/o pain or discomfort. Patient noted with right ac 20 gauze with no s/s of infiltration or infection. Soft restraints noted to bilateral wrists and noted with good circulation and no s/s of skin breakdown.HOB kept elevated.Patient provided heriberto care and assisted with changing x 4 during shift.Will endorse to next shift for JORDY.
--- NOTE | 2020-11-02 19:45 | NUR ---
RN NOTE RECEIVED PATIENT IN BED, ON SEMI MCMILLAN'S, CONFUSED, IN NO S/SX OF ACUTE DISTRESS AT THIS TIME. PATIENT'S BREATHING IS EVEN AND UNLABORED, ON 20L OF OXYGEN VIA HIGH FLOW NC AT 35% FIO2, TOLERATING WELL, SATURATION AT 97%. PATIENT ON TELE MONITOR READING SR, HR IS 83. NOTED IV SITE AT RIGHT AC 20G, PATENT AND FLUSHING WELL, NO S/S OF INFECTION OR INFILTRATION. FLUID RESTRICTION, AND ASPIRATION PRECAUTIONS MAINTAINED. SAFETY MEASURES IMPLEMENTED. PATIENT BED ALARM IS ON. HEAD OF BED ELEVATED. BED IS LOCKED, IN LOWEST POSITION AND SIDE RAILS UP. CALL LIGHT WITHIN REACH OF THE PATIENT. WILL CONTINUE TO MONITOR AND REASSESS FOR ANY CHANGES.
[2020-11-02 20:00] VITALS: BP 105/65
[2020-11-02] MEDS: ATORVASTATIN 40 MG TABLET PO SCH (22:01)
[2020-11-03] VITALS: BP 107/68
[2020-11-03] MEDS: LORAZEPAM INJ 2 MG/ML VIAL IV PRN ×2 (03:51→15:36)
[2020-11-03 04:00] VITALS: BP 109/69
[2020-11-03 07:00] LABS: CALCIUM, SERUM 8.2 mg/dL (8.5-10.1); CREATININE 0.8 mg/dL (0.6-1.3); MAGNESIUM 1.7 mg/dL (1.8-2.4); POTASSIUM 3.7 mmol/L (3.5-5.1)
--- NOTE | 2020-11-03 07:30 | NUR ---
TELE/RN OPENING NOTE Patient resting in bed, A&O x 1, confused. Denies any pain/discomfort at this time. Breathing even and non-labored on highflow oxygen 20 L fio2 30%, no SOB noted. No respiratory or cardiac distress noted. On tele monitor, reading SR 76. IV access noted on RAC #20g, patent and intact, and flushing well. Condom cath in place, no urine output noted at the moment. Bilateral soft wrist restraints in place, circulation, skin, and sensation noted on both upper extremities. Bed locked to its lowest position, side rails x 2 up, bed alarm on. Will continue with current medical management.
--- NOTE | 2020-11-03 07:30 | NUR ---
RN NOTE PATIENT REMAINS IN ROOM IN NO SIGNS OF RESPIRATORY DISTRESS. SR ON THE MONITOR, SATURATION AT >95% AT 35% FIO2 VIA HIGH FLOW NC. SAFETY MEASURES IMPLEMENTED, BED IN LOWEST POSITION, LOCKED, SIDE RAILS UP, CALL LIGHT WITHIN REACH. ALL NEEDS AND ORDERS ADDRESSED DURING THE SHIFT. IV ACCESS MAINTAINED INTACT, SECURED AND FLUSHING WELL. ALL DUE MEDS GIVEN ORDERED. PATIENT TOLERATED WELL. PATIENT KEPT CLEAN AND COMFORTABLE WITHIN THE SHIFT. PATIENT ENDORSED TO CELE NOBLES FOR CONTINUATION OF CARE.
[2020-11-03 08:00] VITALS: BP 95/63
[2020-11-03] MEDS: LEVOTHYROXINE SODIUM 75 MCG TABLET PO SCH (08:34)
[2020-11-03] MEDS: LACTOBACILLUS RHAMNOSUS GG 1 EACH CAP.SPRINK PO SCH ×2 (08:34→16:46)
[2020-11-03] MEDS: MIRTAZAPINE 15 MG TABLET PO SCH (08:35)
[2020-11-03] MEDS: DULOXETINE HCL 30 MG CAPSULE.DR PO SCH (08:35)
[2020-11-03] MEDS: CYCLOBENZAPRINE 10 MG TABLET PO SCH ×3 (08:35→16:46)
[2020-11-03] MEDS: DIVALPROEX SODIUM 500 MG TABLET.DR PO SCH ×3 (08:35→16:46)
[2020-11-03] MEDS: QUETIAPINE FUMARATE 100 MG TABLET PO SCH ×4 (08:35→21:25)
[2020-11-03] MEDS: PANTOPRAZOLE 40 MG/PACK PACK PO SCH (08:35)
[2020-11-03] MEDS: GABAPENTIN 300 MG CAPSULE PO SCH ×4 (08:35→21:23)
--- NOTE | 2020-11-03 09:00 | NUR ---
TELE/RN NOTE Patient placed on 3L oxygen via NC, saturating well at 95-99%. Patient appears well and comfortable with no respiratory distress.
[2020-11-03] MEDS: Magnesium 1GM/D5W 100ML PREMIX 100 ML IV SCH ×2 (09:32→10:34)
[2020-11-03 12:00] VITALS: BP 98/62
[2020-11-03] MEDS: ACETAMINOPHEN 325 MG TABLET PO PRN (14:13)
--- NOTE | 2020-11-03 15:36 | NUR ---
TELE/RN NOTE Administered ativan 0.5 mg IV PRN, patient is yelling "I want to call 911 because I need to get up", appears anxious and constantly screaming for help.
[2020-11-03 16:00] VITALS: BP 104/54
--- NOTE | 2020-11-03 17:00 | NUR ---
TELE/RN NOTE Transferred patient safely to [facility], gave bedside report to Abraham NOBLES. Patient awake in bed, A&O x 1-2. Denies any pain/discomfort at this time. Breathing even and non-labored on 3L oxygen via NC, no SOB noted. No respiratory or cardiac distress noted. On tele monitor, reading SR 96. IV access noted on RAC #20g, patent and intact, and flushing well. Condom cath in place, 1000cc urine out. Bilateral soft wrist restraints in place, circulation, skin, and sensation noted on both upper extremities. Fall precautions maintained.
[2020-11-03] MEDS: ENOXAPARIN SODIUM 40 MG/0.4 ML DISP.SYRIN SQ SCH (17:01)
--- NOTE | 2020-11-03 17:44 | NUR ---
SCRAP CHARGER NOTES PATIENT TRANSFERRED FROM 108-1 TO ROOM 308-1 VIA HIS BED ACCOMPANIED BY MALLORIE OAKLEY. PT IS A/O X2 VERBALLY RESPONSIVE. CALM AT THIS TIME BUT FORGETFUL. PT ORIENTED TO ROOM AND STAFF. ON SUPPLEMENTAL 02 AT 3LPM VIA N/C, TOLERATING WELL WITH NO SOB NOTED. B/L SOFT WRIST RESTRAINS ON, GOOD PERIPHERAL PULSES NOTED. PATIENT WITH IV ACCESS ON RIGHT AC # 2O G INTACT, PATENT AND FLUSHES WELL. TELE READING SHOWS NSR WITH HR ON 90'S, NO C/O OF CARDIAC DISTRESS VOICED.. SAFETY PRECAUTIONS MAINTAINED: BED LOCKED AND IN LOWEST POSITION, SIDE RAILS UP X2, CALL LIGHT WITHIN REACH. WILL ENDORSE JORDY TO NIGHT NURSE.
--- NOTE | 2020-11-03 18:51 | NUR ---
ABRASIVE GRADER CLOSING NOTES PT IN BED AWAKE AND WATCHING TV AT THIS TIME. A/O X2 VERBALLY RESPONSIVE. FORGETFUL AND CONFUSED ON AND OFF. ON 02 AT 3LPM VIA N/C, TOLERATING WELL WITH NO SOB NOTED. B/L SOFT WRIST RESTRAINS ON, GOOD PERIPHERAL PULSES NOTED. IV ACCESS ON RIGHT AC # 2O G INTACT, PATENT AND FLUSHES WELL. TELE READING SHOWS NSR WITH HR ON 90'S, NO C/O OF CARDIAC DISTRESS VOICED. SAFETY PRECAUTIONS MAINTAINED: BED LOCKED AND IN LOWEST POSITION, SIDE RAILS UP X2, CALL LIGHT WITHIN REACH. WILL ENDORSE JORDY TO NIGHT NURSE
[2020-11-03 20:00] VITALS: BP 96/62
--- NOTE | 2020-11-03 20:00 | NUR ---
RN NOTES RECEIVED PT. AWAKE A./OX2, ON BILATERAL SOFT WRIST RESTRAINTS, CIRCULATIONS ARE GOOD, SR ON TELE MONITOR HR-78, [id number], CONTINUE TO MONITOR
[2020-11-03] MEDS: ATORVASTATIN 40 MG TABLET PO SCH (21:23)
[2020-11-04] VITALS: BP 103/71
[2020-11-04 04:00] VITALS: BP_SYST 109; BP_SYST 118; BP_DIAS 63; BP_DIAS 72
--- NOTE | 2020-11-04 06:45 | NUR ---
RN NOTES SLEEPING BUT AROUSABLE, MORNING CARE RENDERED, BILATERAL SOFT RESTRAINTS ARE ALREADY OFF, NOT IN DISTRESS, NO PAIN NOTED, PT. ASKED FOR APPLE SAUCE- GAVE A SNACK, MARIONUPX2, PT. NEEDS ATTENDED
[2020-11-04] MEDS: LEVOTHYROXINE SODIUM 75 MCG TABLET PO SCH (07:26)
--- NOTE | 2020-11-04 07:27 | NUR ---
QUALITY CLOTH TESTER OPENING NOTES RECEIVED PT IN BED AWAKE, A/O X2-3 VERBALLY RESPONSIVE, DENIES PAIN OR ANY DISCOMFORTS AT THIS TIME. B/L SOFT WRIST RESTRAINS OFF, PT IS QUIET, CALM AND COMPLIANT AT THIS TIME. 02 AT 3LPM VIA N/C, TOLERATING WELL WITH NO SOB NOTED. TELE READING SHOWS NSR WITH HR ON 90'S, NO C/O OF CARDIAC DISTRESS VOICED. IV SL ON RIGHT AC # 2O G INTACT AND PATENT. SAFETY PRECAUTIONS MAINTAINED: BED LOCKED AND IN LOWEST POSITION, SIDE RAILS UP X2, CALL LIGHT WITHIN REACH. WILL CONTINUE TO MONITOR PT.
[2020-11-04 08:00] VITALS: BP 116/80
[2020-11-04] MEDS: DULOXETINE HCL 30 MG CAPSULE.DR PO SCH (08:15)
[2020-11-04] MEDS: DIVALPROEX SODIUM 500 MG TABLET.DR PO SCH ×3 (08:15→18:06)
[2020-11-04] MEDS: GABAPENTIN 300 MG CAPSULE PO SCH ×3 (08:15→18:06)
[2020-11-04] MEDS: PANTOPRAZOLE 40 MG/PACK PACK PO SCH (08:15)
[2020-11-04] MEDS: CYCLOBENZAPRINE 10 MG TABLET PO SCH ×3 (08:15→18:06)
[2020-11-04] MEDS: MIRTAZAPINE 15 MG TABLET PO SCH (08:16)
[2020-11-04] MEDS: QUETIAPINE FUMARATE 100 MG TABLET PO SCH ×3 (08:16→18:06)
[2020-11-04] MEDS: LACTOBACILLUS RHAMNOSUS GG 1 EACH CAP.SPRINK PO SCH ×2 (08:17→18:06)
[2020-11-04] MEDS: ACETAMINOPHEN 325 MG TABLET PO PRN (08:29)
--- NOTE | 2020-11-04 08:31 | NUR ---
RN NOTES PT C/O HEADACHE, PRN TYLENOL 650MG PO GIVEN AT 0829. WILL CONTINUE TO MONITOR.
[2020-11-04 16:00] VITALS: BP 110/82
[2020-11-04] MEDS: ENOXAPARIN SODIUM 40 MG/0.4 ML DISP.SYRIN SQ SCH (18:07)
--- NOTE | 2020-11-04 19:46 | NUR ---
RN DISCHARGED NOTES PT DISCHARGED TO [facility] IN STABLE CONDITION. A/O X2-3. VERBALLY RESPONSIVE. V/S TAKEN, STABLE AND RECORDED. ALL BELONGINGS ACCOUNTED FOR AND SIGNED FORM. IV ACCESS ON RIGHT AC REMOVED WITH NO BLEEDING NOTED, DRY PRESSURE DRESSING APPLIED TO SITE. CALLED AND DISCHARGED INSTRUCTIONS REPORTED TO NURSE MCALLISTER AND STATED THAT PT WILL GO TO ROOM 323. PT'S ZULEMA CHOW CALLED AND INFORMED OF PT'S TRANSFER. EXIT FOLDER HANDED TO EMT'S. PT LEFT UNIT VIA GURNEY AT 1935 ACCOMPANIED BY 2 EMT'S. CHARGE NURSE AWARE OF DISCHARGE.
== END 2020-11-04 19:40 | DRG 871 ==
LOC: ER 13:34 → TRANSITION 19:56 → TELE1 10-19 21:19 → TELE 11-03 17:24
DX: A41.9 Sepsis, unspecified organism (principal); J69.0 Pneumonitis due to inhalation of food and vomit; E43 Unspecified severe protein-calorie malnutrition; J96.01 Acute respiratory failure with hypoxia; J96.02 Acute respiratory failure with hypercapnia; G92 Toxic encephalopathy; J44.0 Chronic obstructive pulmonary disease with (acute) lower respiratory infection; E22.2 Syndrome of inappropriate secretion of antidiuretic hormone; E87.3 Alkalosis; E03.9 Hypothyroidism, unspecified; I25.10 Atherosclerotic heart disease of native coronary artery without angina pectoris; F32.9 Major depressive disorder, single episode, unspecified; Z88.1 Allergy status to other antibiotic agents; Z88.8 Allergy status to other drugs, medicaments and biological substances; Z09 Encounter for follow-up examination after completed treatment for conditions other than malignant neoplasm; Z79.82 Long term (current) use of aspirin; Z79.899 Other long term (current) drug therapy; Y95 Nosocomial condition; R29.6 Repeated falls; D53.9 Nutritional anemia, unspecified; E78.5 Hyperlipidemia, unspecified; K44.9 Diaphragmatic hernia without obstruction or gangrene; Z79.890 Hormone replacement therapy; Z20.822 Contact with and (suspected) exposure to COVID-19; F03.90 Unspecified dementia, unspecified severity, without behavioral disturbance, psychotic disturbance, mood disturbance, and anxiety; R82.5 Elevated urine levels of drugs, medicaments and biological substances; W19.XXXA Unspecified fall, initial encounter; Y92.9 Unspecified place or not applicable; I11.9 Hypertensive heart disease without heart failure
CPT/HCPCS: 31720; 36415; 36600; 71045-TC; 72110-TC; 73501; 73552; 80048-TC; 80053-TC; 80061-TC; 81001; 82140-TC; 82550-TC; 82728-TC; 82803-TC; 82962-TC; 83605-TC; 83615-TC; 83735-TC; 83880; 83935-TC; 84100-TC; 84300-TC; 84443-TC; 84484-TC; 84550-TC; 85025-TC; 85378-TC; 85385-TC; 85730-TC; 86140-TC; 87040-TC; 87081-TC; 87086-TC; 92526; 92611-TC; 93307-TC; 93970-TC; 94760-TC; 94762-TC; 94799-TC; 97116-TC; 97530-TC; 99082-TC; A4217; A4349; A6253; A9563; C9113; C9803; G0378; G0480; J1100; J1650; J2060; J2185; J3475; J3480; J3490; J7030; J7050; J7060; J7070; U0003

== ENCOUNTER 2020-11-28 14:16 | Inpatient (IN) | payer MEDICARE, BC ==
[~2020-11-28] VITALS: Ht 170.2 cm; Wt 68.0 kg
[~2020-11-28 14:16] MED LIST changes: -ACET325T53 PO; +ALBU8.5H8 IH; -ASPI-1169 PO; -CALC500T13 PO; +CYCL10TA9 PO; -DIPH1TAB PO; -DIVA-76 PO; -DIVA125T32 PO; +DIVA500T2 PO; -GABA-532 PO; +GABA600T12 PO; +LEVO500T90 PO; +LEVO75TA PO; -LEVO88TA2 PO; -LIDO30AD10 TP; -LOPE2CAP40 PO; +MIRT-121 PO; -OLAN10TA3 PO; -OLAN2.5T3 PO; +QUET100T PO; +TRAZ-257 PO
[2020-11-28] MEDS ORDERED: MAGNESIUM HYDROXIDE 30 ML UDC PO PRN (15:00)
[2020-11-28] MEDS ORDERED: ZOLPIDEM TARTRATE 5 MG TABLET PO PRN (15:00)
[2020-11-28] MEDS ORDERED: ACETAMINOPHEN 325 MG TABLET PO PRN (15:00)
[2020-11-28] MEDS ORDERED: MAG HYDROX/AL HYDROX/SIMETH 30 ML UDC PO PRN (15:00)
--- NOTE | 2020-11-28 15:25 | NUR ---
NURSING ADMISSION NOTE: PT WAS ADMITTED TODAY AT 1435 TO GPS FROM [facility]. PT WAS BROUGHT TO THE UNIT VIA GURNEY. PT IS LPS CONSERVED. PT HAS A HISTORY OF SCHIZOAFFECTIVE DISORDER, BIPOLAR TYPE. PER REPORT, PT HAS BEEN GETTING EASILY AGITATED AND IRRITATED, HOWEVER IS REDIRECTABLE. PT IS A&OX1, CONFUSED, DISORIENTED, DISORGANIZED, CALM, COOPERATIVE, PLEASANT, HAS FLIGHT OF IDEAS, DENIES SI/HI/AVH AT THIS TIME. NO S/S OF ANY DISTRESS NOTED. NO C/O PAIN OR ANY DISCOMFORT. PT WAS COOPERATIVE WITH THE ADMISSION PROCESS. SKIN ASSESSMENT HAS BEEN DONE WITH PHOTOS TAKEN AND PLACED IN THE CHART. PT HAS BRUISING ALL OVER HIS BODY MOSTLY TO BILATERAL ARMS. PT IS UNABLE TO SIGN THE ADMISSION PAPERWORK DUE TO CURRENT MENTAL STATUS. DR. KAHN HAS BEEN NOTIFIED OF THE ADMISSION WITH NEW ORDERS GIVEN, NOTED AND CARRIED OUT. DR. MAHARAJ HAS BEEN NOTIFIED OF PT'S ADMISSION WELL. VS:125/73, 94, 19, 95%RA, 98.6, 0/10 PAIN. WILL CONTINUE TO MONITOR FOR SAFETY AND BEHAVIOR.
[2020-11-28] MEDS ORDERED: ASPI-1169 PO (15:51)
[2020-11-28] MEDS ORDERED: DIVA-78 PO (15:51)
[2020-11-28] MEDS ORDERED: LACT-225 PO (15:51)
[2020-11-28] MEDS ORDERED: FAMO20TA8 PO (15:51)
[2020-11-28] MEDS ORDERED: HYDR-3973 PO (15:51)
[2020-11-28] MEDS ORDERED: ACET325T53 PO (15:51)
[2020-11-28] MEDS ORDERED: MELO-107 PO (15:51)
[2020-11-28] MEDS ORDERED: LACT10SO3 PO (15:51)
[2020-11-28] MEDS ORDERED: HYDR-4076 PO (15:51)
[2020-11-28] MEDS ORDERED: ATOR20TA PO (15:51)
[2020-11-28] MEDS ORDERED: ENOX40DI SQ (15:52)
[2020-11-28 16:00] VITALS: BP 125/73
[2020-11-28] MEDS ORDERED: BLOOD SUGAR DIAGNOSTIC 1 EACH STRIP IN ONE (16:45)
[2020-11-28] MEDS ORDERED: hydrALAZINE HCL 25 MG TABLET PO PRN (18:30)
[2020-11-28] MEDS ORDERED: LACTULOSE 10 G/15 ML UDC (PYXIS) PO PRN (18:30)
[2020-11-28] MEDS ORDERED: ALBUTEROL FS 2.5 MG/3 ML VIAL.NEB IH PRN (18:30)
--- NOTE | 2020-11-28 19:30 | NUR ---
GPS RN NOTE, RECEIVED PATIENT AWAKE AND IN BED, NO S/S OR COMPLAINTS OF PAIN AT THIS TIME. PATIENT IS DISPLAYING NO S/S OF APPARENT DISTRESS AT THIS TIME. PATIENT BREATHING IS UNLABORED WITH EQUAL RISE AND FALL OF THE CHEST. PATIENT IS ALERT AND ORIENTED X 1 ON ROOM AIR WITH A SPO2 93%. PATIENT IS COMPLIANT WITH MEDICATIONS, CONFUSED, ANXIOUS AT TIMES, AND UNCOOPERATIVE. PATIENT DENIES SUICIDAL AND HOMICIDAL IDEATIONS AT THIS TIME. PATIENT ASSISTED WITH TURNING AND REPOSITIONING Q2HR AND PRN FOR COMFORT AND CIRCULATION. PATIENT HAS NO NEEDS AT THIS TIME. PATIENT EDUCATED ON THE USE OF THE CALL SHAH. PATIENT BED SIDE RAILS UP X 2 FOR SAFETY. PATIENT BED IS LOCKED, LOW, WITH BED ALARM ON. WILL CONTINUE TO MONITOR THIS PATIENT Q15 MINUTES WITH THE HELP OF STAFF TO MAINTAIN SAFETY.
[2020-11-28 19:49] VITALS: BP 100/64
[2020-11-28] MEDS: ATORVASTATIN 10 MG TABLET PO SCH (21:28)
[2020-11-28] MEDS: ENOXAPARIN SODIUM 40 MG/0.4 ML DISP.SYRIN SQ SCH (21:28)
--- NOTE | 2020-11-28 21:28 | NUR ---
GPS RN NOTE, PATIENT HAS A COMPLAINT OF NOT BEING ABLE TO SLEEP AND IS REQUESTING AMBIEN AT THIS TIME. PATIENT VITAL SIGNS ARE STABLE. GAVE AMBIEN 5MG PO HS PRN ORDERED. WILL REASSESS FOR INSOMNIA AND I WILL CONTINUE TO MONITOR THIS PATIENT.
[2020-11-28] MEDS ORDERED: MIRTAZAPINE 15 MG TABLET PO SCH (22:00)
[2020-11-29] MEDS: LORAZEPAM 0.5 MG TABLET PO PRN ×2 (05:15→19:42)
--- NOTE | 2020-11-29 05:15 | NUR ---
GPS RN NOTE, PATIENT HAS A COMPLAINT OF FEELING ANXIOUS AND IS REQUESTING ATIVAN AT THIS TIME. PATIENT VITAL SIGNS ARE STABLE. GAVE ATIVAN 1MG PO Q6HR PRN ORDERED. WILL REASSESS FOR ANXIETY AND I WILL CONTINUE TO MONITOR THIS PATIENT.
[2020-11-29] MEDS: CYCLOBENZAPRINE 10 MG TABLET PO PRN ×2 (07:54→16:32)
[2020-11-29] MEDS: LEVOTHYROXINE SODIUM 75 MCG TABLET PO SCH (07:54)
[2020-11-29 08:00] VITALS: BP 134/65
[2020-11-29] MEDS: ASPIRIN 81 MG TAB.CHEW PO SCH (08:03)
[2020-11-29] MEDS: FAMOTIDINE (20 MG) 20 MG TABLET PO SCH ×2 (08:03→16:32)
[2020-11-29] MEDS: ENSURE CLEAR 237 ML LIQUID (MIX BERRY) PO SCH ×3 (08:04→16:39)
[2020-11-29] MEDS ORDERED: DIVALPROEX SODIUM 500 MG TABLET.DR PO SCH ×2 (09:00)
[2020-11-29] MEDS ORDERED: Medication Not On Formulary EA (Gabapentin 600 MG) PO SCH (09:00)
--- NOTE | 2020-11-29 11:03 | NUR ---
RN-CO: CALLED NEHEMIAH SOLANO TO ASSESS PT FOR A HOLD SINCE PT DOESN'T HAVE CONSERVATORSHIP PAPER. AND ALSO PER TOD COLEY , DIRECTOR INSTRUCTIONS.
--- NOTE | 2020-11-29 11:41 | NUR ---
Conservator Contact: RASHAWN contacted the pts conservator, Ronal Wharton ([phone]), who stated that he has a perpetual conservatorship that does not need to be renewed yearly. SW inquired whether it was probate or LPS and he stated that he has conservatorship over the person. He stated that he would have his privacy attorney call the SW or send over all of the documents.
--- NOTE | 2020-11-29 11:51 | NUR ---
Guardian Contact: SW received a call from Mirtha ([phone]) who stated that she is the pts guardian and that the pt has been agitated and extremely aggressive in the past couple of weeks. She states that the pt needs physical and occupational therapy and that means either an Acute Rehab Unit or a [facility] facility. Pts guardian stated that the pt does not do well on Xanax and appears to do better on Seroquel. SW stated that she will keep her involved in the treatment.
--- NOTE | 2020-11-29 12:59 | NUR ---
RN-CO: Awaiting for clinician Kristy Calderón.
--- NOTE | 2020-11-29 13:27 | NUR ---
RN-CO: XAVI CERNA IS HERE TO WRITE HOLD.
[2020-11-29 16:00] VITALS: BP 154/79
[2020-11-29] MEDS ORDERED: ENSURE CLEAR 237 ML LIQUID (MIX BERRY) PO SCH (18:00)
--- NOTE | 2020-11-29 19:43 | NUR ---
RN NOTES: ANXIETY PT. C/O FEELING ANXIOUS PARANOID, ATIVAN 1 MG PO PRN GIVEN PER PT. REQUEST , WILL CONTINUE TO MONITOR.
[2020-11-29] MEDS: ENOXAPARIN SODIUM 40 MG/0.4 ML DISP.SYRIN SQ SCH (20:14)
[2020-11-29 20:21] VITALS: BP 130/73
[2020-11-29] MEDS: QUETIAPINE FUMARATE 100 MG TABLET PO SCH (21:19)
[2020-11-29] MEDS: ATORVASTATIN 10 MG TABLET PO SCH (21:45)
[2020-11-30] MEDS ORDERED: Z GUARD REMEDY 2 OZ OINT TP PRN (06:00)
--- NOTE | 2020-11-30 06:59 | NUR ---
RN NOTES: PATIENT RESTING IN ROOM. NO S/S OF DISTRESS. NO CHANGE OF CONDITION NOTED, SAFETY PRECAUTION MAINTAINED, ALL PATIENT CARE NEEDS MET AT THIS TIME. WILL CONTINUE TO MONITOR PATIENT FOR MOOD, BEHAVIOR AND SAFETY AND ENDORSE TO AM SHIFT FOR CONTINUITY CARE.
[2020-11-30 07:15] LABS: BASOPHILS # (AUTO) 0.1 /CMM (0.0-0.2); BASOPHILS % (AUTO) 1.1 % (0.0-2.0); EOSINOPHILS % (AUTO) 0.8 % (0.0-6.0); HEMATOCRIT 32 % (39-51); HEMOGLOBIN 11.2 g/dL (13.5-17.5); LYMPHOCYTES # (AUTO) 1.8 /CMM (0.8-4.8); MEAN CORPUSCULAR HGB CONC 35 g/dl (31.0-36.0); MEAN CORPUSCULAR VOLUME 101 fL (80-96); MONOCYTES # (AUTO) 1.1 /CMM (0.1-1.30); MONOCYTES % (AUTO) 18.3 % (2.0-12.0); NEUTROPHILS # (AUTO) 3.1 /CMM (1.8-8.9); NEUTROPHILS % (AUTO) 50.8 % (43.0-81.0); PLATELET COUNT (AUTO) 290 /CMM (150-450); RED BLOOD CELL COUNT(AUTO) 3.16 MIL/uL (4.5-6.0); WHITE BLOOD COUNT (AUTO) 6.1 K/uL (4.3-11.0)
[2020-11-30 07:34] LABS: ALBUMIN 2.7 g/dL (3.4-5.0); BILIRUBIN,TOTAL 0.4 mg/dL (0.2-1.0); CREATININE 0.9 mg/dL (0.6-1.3); MAGNESIUM 1.6 mg/dL (1.8-2.4); PHOSPHORUS 3.1 mg/dL (2.5-4.9); POTASSIUM 3.6 mmol/L (3.5-5.1); TOTAL PROTEIN, SERUM 7.2 g/dL (6.4-8.2)
[2020-11-30 08:00] VITALS: BP 125/77
[2020-11-30] MEDS: ENSURE CLEAR 237 ML LIQUID (MIX BERRY) PO SCH ×3 (08:03→17:02)
[2020-11-30] MEDS: FAMOTIDINE (20 MG) 20 MG TABLET PO SCH ×2 (08:03→17:02)
[2020-11-30] MEDS: ASPIRIN 81 MG TAB.CHEW PO SCH (08:03)
[2020-11-30] MEDS: LEVOTHYROXINE SODIUM 75 MCG TABLET PO SCH (08:03)
[2020-11-30 08:04] LABS: THYROID STIMULATING HORMONE 30.743 uIU/mL (0.358-3.74)
[2020-11-30] MEDS: Z GUARD REMEDY 2 OZ OINT TP SCH (08:04)
[2020-11-30] MEDS: LORAZEPAM 0.5 MG TABLET PO PRN (08:47)
[2020-11-30] MEDS ORDERED: ESCITALOPRAM OXALATE (10 MG) 10 MG TABLET PO SCH (09:00)
[2020-11-30 09:03] LABS: LYMPHOCYTES % (MANUAL) 28 % (16-48); MONOCYTES % (MANUAL) 18 % (0-11.0); NEUTROPHILS % (MANUAL) 54 (42-76)
--- NOTE | 2020-11-30 10:06 | NUR ---
Dormitory Counselor Contact: SW spoke to the conservators activity assistant, Tawny Olivares ([phone]), who stated that he will be sending over documents on the conservSparkroadhip as soon as he can because they are working remotely at this time.
--- NOTE | 2020-11-30 10:46 | NUR ---
WOUND CARE CONSULT: PT PRESENTS WITH INTACT SKIN AND DISCOLORATION/CALLUS TO RT HEEL, PRESENT ON ADMISSION. RECOMMENDATIONS MADE FOR SKIN PROTECTION. DISCUSSED WITH NURSING STAFF. MD IN AGREEMENT WITH PLAN OF CARE.
[2020-11-30] MEDS ORDERED: MAGNESIUM OXIDE 400 MG TABLET PO ONE (11:00)
[2020-11-30] MEDS ORDERED: IOHEXOL-300 100 ML VIAL IV ONE (11:34)
[2020-11-30] MEDS ORDERED: IV NS 0.9% 500 ML IV ONE (11:35)
--- NOTE | 2020-11-30 11:38 | NUR ---
Conservator Contact: SW contacted the pts conservator, Ronal Wharton ([phone]), and informed him that the SW would like to receive collateral information on this pt as he is not able to participate.
--- NOTE | 2020-11-30 12:29 | NUR ---
Initial Discharge Plan: Pt currently resides in his home located at [address] [place] [address]; ([phone]). Per pts conservator, Ronal Wharton ([phone]), the goal is to have the pt return to his home. SW will work with the pt, pts conservator, and MD regarding appropriate discharge planning. SW will form a safe and proper discharge.
[2020-11-30] MEDS: QUETIAPINE FUMARATE 25 MG TABLET PO SCH ×2 (13:09→17:03)
[2020-11-30] MEDS: GABAPENTIN 300 MG CAPSULE PO SCH ×3 (13:10→21:09)
[2020-11-30 16:00] VITALS: BP 132/60
[2020-11-30 20:08] VITALS: BP 130/74
[2020-11-30] MEDS: QUETIAPINE FUMARATE 100 MG TABLET PO SCH (21:09)
[2020-11-30] MEDS: DIVALPROEX SODIUM 500 MG TABLET.DR PO SCH (21:09)
[2020-11-30] MEDS: ATORVASTATIN 10 MG TABLET PO SCH (21:09)
[2020-11-30] MEDS: ENOXAPARIN SODIUM 40 MG/0.4 ML DISP.SYRIN SQ SCH (21:12)
--- NOTE | 2020-12-01 06:33 | NUR ---
RN NOTES PT IN BED, SLEEPING, EASILY AROUSABLE BE VERBAL TACTILE. NO CHANGES IN CONDITION. NO RESP DISTRESS NOTED. ON FREQUENT VISUAL CHECK FOR BEHAVIOR AND SAFETY. ALL NEEDS ATTENDED. SAFETY PRECAUTIONS MAINTAINED. WILL ENDORSE TO NEXT SHIFT NURSE FOR JORDY.
[2020-12-01] MEDS: LEVOTHYROXINE SODIUM 100 MCG TABLET PO SCH ×2 (07:30→10:16)
[2020-12-01 08:00] VITALS: BP 135/87
[2020-12-01] MEDS: ENSURE CLEAR 237 ML LIQUID (MIX BERRY) PO SCH ×3 (08:41→17:06)
[2020-12-01] MEDS: DULOXETINE HCL 30 MG CAPSULE.DR PO SCH ×2 (09:00→10:15)
[2020-12-01] MEDS: FAMOTIDINE (20 MG) 20 MG TABLET PO SCH ×3 (09:00→17:10)
[2020-12-01] MEDS: ASPIRIN 81 MG TAB.CHEW PO SCH ×2 (09:00→10:15)
[2020-12-01] MEDS: GABAPENTIN 300 MG CAPSULE PO SCH ×5 (09:00→21:06)
[2020-12-01] MEDS: QUETIAPINE FUMARATE 25 MG TABLET PO SCH ×4 (09:00→17:10)
[2020-12-01] MEDS: DIVALPROEX SODIUM 500 MG TABLET.DR PO SCH ×3 (09:00→21:06)
--- NOTE | 2020-12-01 10:15 | NUR ---
REFUSED ALL AM MEDS.
[2020-12-01] MEDS: Z GUARD REMEDY 2 OZ OINT TP SCH (10:30)
--- NOTE | 2020-12-01 14:00 | NUR ---
dr. johnson in asking rn contact dr. davis as he requested dr. davis to follow pt.rn spoke with dr. davis-states dr lay following pt. today.and that dr. layton coming in as consult.additionally ordered mg supplement for pt.
[2020-12-01] MEDS: MAGNESIUM OXIDE 400 MG TABLET PO SCH ×2 (14:15→17:10)
--- NOTE | 2020-12-01 14:40 | NUR ---
given tylenol for chest discomfort.
--- NOTE | 2020-12-01 14:53 | NUR ---
given tylenol for chest pain.
[2020-12-01 16:00] VITALS: BP 98/59
--- NOTE | 2020-12-01 18:30 | NUR ---
call to resp[facility] to do ekg as per orders.
[2020-12-01 20:30] VITALS: BP 118/71
[2020-12-01] MEDS: QUETIAPINE FUMARATE 100 MG TABLET PO SCH (21:07)
[2020-12-01] MEDS: ATORVASTATIN 10 MG TABLET PO SCH (21:07)
[2020-12-01] MEDS: ENOXAPARIN SODIUM 40 MG/0.4 ML DISP.SYRIN SQ SCH (21:08)
--- NOTE | 2020-12-02 05:30 | NUR ---
GPS-RN NOTES: WILL ENDORSE TO THE DAY SHIFT NURSE TO RELAY EKG RESULT TO MD.
[2020-12-02 08:00] VITALS: BP 140/74
[2020-12-02] MEDS: GABAPENTIN 300 MG CAPSULE PO SCH ×4 (08:28→21:22)
[2020-12-02] MEDS: DIVALPROEX SODIUM 500 MG TABLET.DR PO SCH ×2 (08:28→21:22)
[2020-12-02] MEDS: MAGNESIUM OXIDE 400 MG TABLET PO SCH ×2 (08:28→16:10)
[2020-12-02] MEDS: QUETIAPINE FUMARATE 25 MG TABLET PO SCH ×3 (08:28→16:37)
[2020-12-02] MEDS: LEVOTHYROXINE SODIUM 100 MCG TABLET PO SCH (08:28)
[2020-12-02] MEDS: DULOXETINE HCL 30 MG CAPSULE.DR PO SCH (08:28)
[2020-12-02] MEDS: FAMOTIDINE (20 MG) 20 MG TABLET PO SCH ×2 (08:28→16:10)
[2020-12-02] MEDS: ASPIRIN 81 MG TAB.CHEW PO SCH (08:28)
[2020-12-02] MEDS: CYCLOBENZAPRINE 10 MG TABLET PO PRN (08:29)
[2020-12-02] MEDS: ENSURE CLEAR 237 ML LIQUID (MIX BERRY) PO SCH ×3 (09:07→16:11)
[2020-12-02] MEDS: Z GUARD REMEDY 2 OZ OINT TP SCH (09:08)
--- NOTE | 2020-12-02 11:41 | NUR ---
RN-CO: Called ST and made a follow on the orders of Dr Laughlin. ST EVAL, X RAY VIDEO SWALLOW, ST EVAL CINE VIDEO, SWALLOW EVAL. NOBODY IS ANSWERING AND I LEFT VOICE MAIL.
[2020-12-02 16:00] VITALS: BP 106/63
[2020-12-02] MEDS: LORAZEPAM 0.5 MG TABLET PO PRN (16:10)
--- NOTE | 2020-12-02 16:38 | NUR ---
RN-CO: ATIVAN 1 MG PO GIVEN FOR AGITATION.
[2020-12-02 19:46] VITALS: BP 116/75
[2020-12-02] MEDS: QUETIAPINE FUMARATE 100 MG TABLET PO SCH (21:22)
[2020-12-02] MEDS: ATORVASTATIN 10 MG TABLET PO SCH (21:23)
[2020-12-02] MEDS: ENOXAPARIN SODIUM 40 MG/0.4 ML DISP.SYRIN SQ SCH (21:24)
[2020-12-03 08:00] VITALS: BP 127/79
[2020-12-03] MEDS: Z GUARD REMEDY 2 OZ OINT TP SCH (08:26)
[2020-12-03] MEDS: ASPIRIN 81 MG TAB.CHEW PO SCH (08:26)
[2020-12-03] MEDS: DULOXETINE HCL 30 MG CAPSULE.DR PO SCH (08:26)
[2020-12-03] MEDS: ENSURE CLEAR 237 ML LIQUID (MIX BERRY) PO SCH ×3 (08:26→16:31)
[2020-12-03] MEDS: QUETIAPINE FUMARATE 25 MG TABLET PO SCH ×3 (08:26→16:30)
[2020-12-03] MEDS: LEVOTHYROXINE SODIUM 100 MCG TABLET PO SCH (08:26)
[2020-12-03] MEDS: FAMOTIDINE (20 MG) 20 MG TABLET PO SCH ×2 (08:26→16:30)
[2020-12-03] MEDS: MAGNESIUM OXIDE 400 MG TABLET PO SCH ×2 (08:26→16:29)
[2020-12-03] MEDS: GABAPENTIN 300 MG CAPSULE PO SCH ×4 (08:26→21:01)
[2020-12-03] MEDS: DIVALPROEX SODIUM 500 MG TABLET.DR PO SCH ×2 (08:26→21:01)
--- NOTE | 2020-12-03 09:00 | NUR ---
RN NOTE- PT IS ALERT ORIENTED TO SELF CONFUSED MED COMPLIANT PO INTAKE GOOD W FULL ASSIST, REPOSITIONING AND ASSIST W ALL ADLS, RAMBLING SPEECH DISORGANIZED
[2020-12-03 16:00] VITALS: BP 100/67
[2020-12-03 19:54] VITALS: BP 106/68
[2020-12-03] MEDS: ENOXAPARIN SODIUM 40 MG/0.4 ML DISP.SYRIN SQ SCH (21:02)
[2020-12-03] MEDS: ATORVASTATIN 10 MG TABLET PO SCH (22:04)
[2020-12-03] MEDS: QUETIAPINE FUMARATE 100 MG TABLET PO SCH (22:04)
--- NOTE | 2020-12-04 06:23 | NUR ---
GPS RN CLOSING NOTES: PATIENT LAYING ON BED SLEEPING COMFORTABLY. PATIENT SLEPT 7 HR THIS SHIFT. NO BEHAVIORAL ISSUES THIS SHIFT. MEDICATION COMPLIANT, COOPERATIVE. NO S/S OF DISTRESS. RESPIRATION EVEN AND UNLABORED WITH EQUAL RISE AND FALL OF THE CHEST ON ROOM AIR. SAFETY PRECAUTION MAINTAINED, BED IN LOWEST POSITION AND LOCKED. Q15 MINUTES SAFETY ROUND CONTINUED. ALL PATIENT CARE NEEDS MET ANTICIPATED. WILL CONTINUE TO MONITOR PATIENT FOR MOOD, BEHAVIOR AND SAFETY AND ENDORSE TO AM SHIFT. Addendum: 12/04/20 at 0634 by JOHN MCDONALD RN PATIENT WAS REPOSITIONED, BED BATH PROVIDED, DIAPER CHANGED AND MEPILEX APPLIED TO SACRAL AREA FOR PROTECTION.
[2020-12-04 06:24] LABS: BASOPHILS # (AUTO) 0.1 /CMM (0.0-0.2); BASOPHILS % (AUTO) 1.7 % (0.0-2.0); EOSINOPHILS % (AUTO) 1.7 % (0.0-6.0); HEMATOCRIT 29 % (39-51); HEMOGLOBIN 10.2 g/dL (13.5-17.5); LYMPHOCYTES # (AUTO) 2.3 /CMM (0.8-4.8); LYMPHOCYTES % (AUTO) 39.6 % (20.0-44.0); MEAN CORPUSCULAR HGB CONC 35 g/dl (31.0-36.0); MEAN CORPUSCULAR VOLUME 103 fL (80-96); MONOCYTES # (AUTO) 1.1 /CMM (0.1-1.30); MONOCYTES % (AUTO) 18.3 % (2.0-12.0); NEUTROPHILS # (AUTO) 2.2 /CMM (1.8-8.9); NEUTROPHILS % (AUTO) 38.7 % (43.0-81.0); PLATELET COUNT (AUTO) 246 /CMM (150-450); RED BLOOD CELL COUNT(AUTO) 2.86 MIL/uL (4.5-6.0); WHITE BLOOD COUNT (AUTO) 5.8 K/uL (4.3-11.0)
[2020-12-04 06:59] LABS: CALCIUM, SERUM 8.6 mg/dL (8.5-10.1); CREATININE 0.9 mg/dL (0.6-1.3); MAGNESIUM 1.8 mg/dL (1.8-2.4); PHOSPHORUS 3.5 mg/dL (2.5-4.9); POTASSIUM 3.9 mmol/L (3.5-5.1)
[2020-12-04] MEDS: LEVOTHYROXINE SODIUM 100 MCG TABLET PO SCH (07:47)
[2020-12-04 08:00] VITALS: BP 107/52
[2020-12-04 08:25] LABS: EOSINOPHILS % (MANUAL) 3 % (0-4); LYMPHOCYTES % (MANUAL) 35 % (16-48); MONOCYTES % (MANUAL) 13 % (0-11.0); NEUTROPHILS % (MANUAL) 49 (42-76)
[2020-12-04] MEDS: FAMOTIDINE (20 MG) 20 MG TABLET PO SCH ×2 (08:27→16:38)
[2020-12-04] MEDS: ASPIRIN 81 MG TAB.CHEW PO SCH (08:27)
[2020-12-04] MEDS: ENSURE CLEAR 237 ML LIQUID (MIX BERRY) PO SCH ×3 (08:27→16:39)
[2020-12-04] MEDS: Z GUARD REMEDY 2 OZ OINT TP SCH (08:27)
[2020-12-04] MEDS: QUETIAPINE FUMARATE 25 MG TABLET PO SCH ×3 (08:27→16:38)
[2020-12-04] MEDS: GABAPENTIN 300 MG CAPSULE PO SCH ×4 (08:27→21:09)
[2020-12-04] MEDS: MAGNESIUM OXIDE 400 MG TABLET PO SCH ×2 (08:27→16:38)
[2020-12-04] MEDS: DULOXETINE HCL 30 MG CAPSULE.DR PO SCH (08:27)
[2020-12-04] MEDS: DIVALPROEX SODIUM 500 MG TABLET.DR PO SCH ×2 (08:27→21:09)
--- NOTE | 2020-12-04 09:00 | NUR ---
RN NOTE- PT IS ALERT ORIENTED TO SELF ONLY CONFUSED CALM DIRECTABLE SWALLOW EVAL DONE AT BEDSIDE. PT TO HAVE DIET CHANGE AND FLUID CHASERS W SMALL BITES HE HAS ASPIRATION RISK AND A HERNIA COMPOUNDING MOTILITY ISSUES. VIDEO SWALLOW EVAL ORDERED FOR THURSDAY MORNING. HOB ELEVATED AT 45 DEGREES ALL TIMES
--- NOTE | 2020-12-04 10:47 | NUR ---
Probable Cause Hearing: Pts [id number] hold was upheld for grave disability.
--- NOTE | 2020-12-04 10:47 | NUR ---
Guardian Contact: RASHAWN called the pts guardian, Mirtha ([phone]), and informed her that the pt is going to be discharged on Thursday. She stated that she cannot find caregivers by then and that the house is a mess because they are remodeling his shower and then went on to state that he needs physical and occupational therapy. RASHAWN stated that the pt was not accepted back to [facility] and then recommended a SNF as a potential discharge option. Mirtha stated that would be a great option and stated that she would speak to the pts conservator and have him call the SW.
--- NOTE | 2020-12-04 11:06 | NUR ---
Conservator Contact: Pts conservator, Ronal Wharton ([phone]), contacted the SW and stated that he agrees to placing the pt at a [facility] facility.
--- NOTE | 2020-12-04 12:29 | NUR ---
SNF Referral: RASHAWN faxed a referral to [facility] with attn to Britney to the fax number: [phone].
--- NOTE | 2020-12-04 14:42 | NUR ---
RN NOTE-ASSISTED PT TO BR. PT HAD LARGE BM AND VOIDED. PT DRANK ONE ENSURE AFTER AND HAD SOME WATER
[2020-12-04 16:00] VITALS: BP 120/74
[2020-12-04] MEDS: LORAZEPAM 0.5 MG TABLET PO PRN (19:47)
--- NOTE | 2020-12-04 19:47 | NUR ---
RN notes Pt is feeling agitated, anxious and screaming loudly. Administered ativan 0.5 mg/2 tabs/po/prn as ordered. Safety precautions is maintained. Will continue to monitor.
[2020-12-04] MEDS: ENOXAPARIN SODIUM 40 MG/0.4 ML DISP.SYRIN SQ SCH (20:30)
[2020-12-04 20:51] VITALS: BP 110/67
[2020-12-04] MEDS: ATORVASTATIN 10 MG TABLET PO SCH (21:09)
[2020-12-04] MEDS: QUETIAPINE FUMARATE 100 MG TABLET PO SCH (21:09)
[2020-12-05 08:00] VITALS: BP 136/73
[2020-12-05] MEDS: ASPIRIN 81 MG TAB.CHEW PO SCH (08:32)
[2020-12-05] MEDS: LEVOTHYROXINE SODIUM 100 MCG TABLET PO SCH (08:32)
[2020-12-05] MEDS: DIVALPROEX SODIUM 500 MG TABLET.DR PO SCH ×2 (08:32→20:43)
[2020-12-05] MEDS: DULOXETINE HCL 30 MG CAPSULE.DR PO SCH (08:32)
[2020-12-05] MEDS: GABAPENTIN 300 MG CAPSULE PO SCH ×4 (08:32→20:44)
[2020-12-05] MEDS: MAGNESIUM OXIDE 400 MG TABLET PO SCH ×2 (08:32→17:12)
[2020-12-05] MEDS: QUETIAPINE FUMARATE 25 MG TABLET PO SCH ×3 (08:33→17:00)
[2020-12-05] MEDS: ENSURE CLEAR 237 ML LIQUID (MIX BERRY) PO SCH ×3 (08:33→17:00)
[2020-12-05] MEDS: FAMOTIDINE (20 MG) 20 MG TABLET PO SCH ×2 (08:33→17:11)
[2020-12-05] MEDS: Z GUARD REMEDY 2 OZ OINT TP SCH (08:34)
--- NOTE | 2020-12-05 09:25 | NUR ---
SNF Contact: Britney ([phone]) from [facility] contacted the SW and stated that the pt was accepted to their facility.
--- NOTE | 2020-12-05 09:26 | NUR ---
Conservator Contact: SW called the pts conservator, Ronal Wharton ([phone]), and informed him that the pt was accepted to [facility] and that he will be discharged there on Thursday and he accepted the placement.
[2020-12-05 16:00] VITALS: BP 132/73
--- NOTE | 2020-12-05 17:00 | NUR ---
spoke with Mirtha Gray and Milton Wharton regarding pt health-concern for CT of chest advised it was done on the 18 and that they should contact the social science research assistant tomorrow Dec 06 to have her connect them with Md Laughlin for update-christelle Wharton has telephone number and will do in the am-also advised pt is in stable condition
[2020-12-05 20:47] VITALS: BP 142/85
[2020-12-05] MEDS: ENOXAPARIN SODIUM 40 MG/0.4 ML DISP.SYRIN SQ SCH (21:05)
[2020-12-05] MEDS: QUETIAPINE FUMARATE 100 MG TABLET PO SCH (21:09)
[2020-12-05] MEDS: ATORVASTATIN 10 MG TABLET PO SCH (21:09)
[2020-12-06 08:00] VITALS: BP 138/83
[2020-12-06] MEDS: ASPIRIN 81 MG TAB.CHEW PO SCH (08:51)
[2020-12-06] MEDS: MAGNESIUM OXIDE 400 MG TABLET PO SCH ×2 (08:51→16:12)
[2020-12-06] MEDS: DIVALPROEX SODIUM 500 MG TABLET.DR PO SCH ×2 (08:52→21:30)
[2020-12-06] MEDS: Z GUARD REMEDY 2 OZ OINT TP SCH (08:52)
[2020-12-06] MEDS: LEVOTHYROXINE SODIUM 100 MCG TABLET PO SCH (08:52)
[2020-12-06] MEDS: ENSURE CLEAR 237 ML LIQUID (MIX BERRY) PO SCH ×3 (08:52→17:45)
[2020-12-06] MEDS: FAMOTIDINE (20 MG) 20 MG TABLET PO SCH ×2 (08:52→16:12)
[2020-12-06] MEDS: GABAPENTIN 300 MG CAPSULE PO SCH ×4 (08:52→21:30)
[2020-12-06] MEDS: QUETIAPINE FUMARATE 25 MG TABLET PO SCH ×3 (08:52→16:12)
[2020-12-06] MEDS: DULOXETINE HCL 30 MG CAPSULE.DR PO SCH (08:52)
[2020-12-06] MEDS ORDERED: BARIUM SULFATE 148 GM SUSP.RECON PO ONE (10:44)
[2020-12-06] MEDS ORDERED: BARIUM SULFATE 240 ML ORAL.SUSP PO ONE (10:44)
--- NOTE | 2020-12-06 14:19 | NUR ---
Guardian Contact: RASHAWN received a call from Mirtha ([phone]), pts guardian, and RASHAWN confirmed that the pt is going to be discharged to [facility] tomorrow.
--- NOTE | 2020-12-06 15:37 | NUR ---
Clear yellow, odorless urine specimen collected via clean catch. Lab made aware of pick-up.
[2020-12-06 16:00] VITALS: BP 111/52
[2020-12-06 20:31] VITALS: BP 141/82
[2020-12-06] MEDS: QUETIAPINE FUMARATE 100 MG TABLET PO SCH (21:30)
[2020-12-06] MEDS: ATORVASTATIN 10 MG TABLET PO SCH (21:30)
[2020-12-06] MEDS: ENOXAPARIN SODIUM 40 MG/0.4 ML DISP.SYRIN SQ SCH (21:31)
[2020-12-07 07:02] LABS: CALCIUM, SERUM 8.9 mg/dL (8.5-10.1); CREATININE 0.8 mg/dL (0.6-1.3); MAGNESIUM 1.7 mg/dL (1.8-2.4); PHOSPHORUS 3.2 mg/dL (2.5-4.9); POTASSIUM 4.3 mmol/L (3.5-5.1)
[2020-12-07 07:15] LABS: THYROID STIMULATING HORMONE 19.855 uIU/mL (0.358-3.74); URIC ACID 5.4 mg/dL (2.6-7.2)
[2020-12-07 08:00] VITALS: BP 152/77
[2020-12-07] MEDS: DULOXETINE HCL 30 MG CAPSULE.DR PO SCH (08:08)
[2020-12-07] MEDS: MAGNESIUM OXIDE 400 MG TABLET PO SCH (08:08)
[2020-12-07] MEDS: ASPIRIN 81 MG TAB.CHEW PO SCH (08:08)
[2020-12-07] MEDS: QUETIAPINE FUMARATE 25 MG TABLET PO SCH ×2 (08:08→12:21)
[2020-12-07] MEDS: LEVOTHYROXINE SODIUM 100 MCG TABLET PO SCH (08:08)
[2020-12-07] MEDS: FAMOTIDINE (20 MG) 20 MG TABLET PO SCH (08:09)
[2020-12-07] MEDS: ENSURE CLEAR 237 ML LIQUID (MIX BERRY) PO SCH ×2 (08:09→12:21)
[2020-12-07] MEDS: DIVALPROEX SODIUM 500 MG TABLET.DR PO SCH (08:09)
[2020-12-07] MEDS: GABAPENTIN 300 MG CAPSULE PO SCH ×2 (08:09→12:21)
[2020-12-07] MEDS: Z GUARD REMEDY 2 OZ OINT TP SCH (08:10)
--- NOTE | 2020-12-07 09:59 | NUR ---
Discharge Note: Pt will be discharged to [facility] ([facility]) located at [address] [place] [address]; ([phone]). Pt will be transported via [facility] at 12pm. Pts conservator, Milton Wharton ([phone]), agreed to this placement. Upon discharge, the pt appears to be in a dysphoric mood and presents with a distressed affect. Pt appears to be oriented x2 (time and self). Pt appears to be groomed and appropriately dressed. Pt appears to be ambulatory with an unsteady gait. Pt denies suicidal and homicidal ideation and denied visual and auditory hallucinations. Pt will continue to follow up with pts psychiatrist, Dr. Palafox, located at [address], [place] [address]; and pts aircraft machinist helper, Dr. Calix, located at [address] [place] [address]; . Pt was not able to sign the Choice of Vendor form due to pts psychosis. RN and SW cosigned and the form was placed in the chart. The multidisciplinary exit care form was done, printed, signed, and given to the patient.
--- NOTE | 2020-12-07 11:38 | NUR ---
RN NOTES DISCHARGE REPORT CALLED TO MALLORIE CHEUNG [facility] [phone]. MEDICAL DOCTOR MADE AWARE OF SODIUM AND MAG LEVEL WITH ORDER FOR MAG 400MG X1 DOSE.
[2020-12-07] MEDS ORDERED: MAGNESIUM OXIDE 400 MG TABLET PO ONE (12:00)
--- NOTE | 2020-12-07 15:25 | NUR ---
PUBLIC WORKS INSPECTOR NOTE 74 Y/O MALE DISCHARGED TO [facility] IN STABLE CONDITION. AFFECT PLEASANT WITH ANXIETY AT TIMES, DYSPHORIC MOOD. COOPERATIVE AND COMPLIANT. STATES "I'M BETTER NOW." MEDICATIONS REVIEWED AND PRESCRIPTIONS GIVEN. DISCUSSED AFTERCARE AT [facility] AND THE NEED FOR MONTHLY MONITORING. BEHAVIOR IMPROVED-DECREASED ANXIETY, DENIES SUICIDAL HOMICIDAL IDEATIONS AT THIS TIME. TREATMENT PLAN GOALS MET. COPY OF AFTERCARE PLAN AND BELONGINGS GIVEN. ESCORTED VIA AMBULANCE X 3 PERSONNEL. CONSERVATOR JESSICA CHOW MADE AWARE.
== END 2020-12-07 16:04 | DRG 885 ==
LOC: GPS 14:16
PROVIDERS: ADMIT Psychiatry & Neurology Psychiatry; ATTEND Nurse Practitioner Acute Care
DX: F31.64 Bipolar disorder, current episode mixed, severe, with psychotic features (principal); E87.1 Hypo-osmolality and hyponatremia; E51.2 Wernicke's encephalopathy; F03.91 Unspecified dementia, unspecified severity, with behavioral disturbance; E03.9 Hypothyroidism, unspecified; I10 Essential (primary) hypertension; J44.9 Chronic obstructive pulmonary disease, unspecified; Z74.01 Bed confinement status; Z79.899 Other long term (current) drug therapy; Z87.891 Personal history of nicotine dependence; F09 Unspecified mental disorder due to known physiological condition; Z20.822 Contact with and (suspected) exposure to COVID-19; Z87.01 Personal history of pneumonia (recurrent); D53.9 Nutritional anemia, unspecified; R47.02 Dysphasia; K44.9 Diaphragmatic hernia without obstruction or gangrene
CPT/HCPCS: 36415; 71260-TC; 74230-TC; 80048-TC; 80053-TC; 80061-TC; 80164-TC; 82962-TC; 83735-TC; 84100-TC; 84300-TC; 84439-TC; 84443-TC; 84481; 84550-TC; 85025-TC; 87081-TC; 92526; 92611-TC; 97112-TC; 97116-TC; 97530-TC; J1650; J7040; Q9967

== ENCOUNTER 2021-01-12 21:02 | Inpatient (IN) | payer MEDICARE, BC ==
[~2021-01-12] VITALS: Ht 170.2 cm; Wt 68.0 kg
[~2021-01-12 21:02] MED LIST changes: +ACET325T53 PO; +ASPI-1169 PO; +ATOR20TA PO; +DIVA-78 PO; +ENOX40DI SQ; +FAMO20TA8 PO; +HYDR-3973 PO; +HYDR-4076 PO; +LACT-225 PO; +LACT10SO3 PO; -LEVO500T90 PO; +MELO-107 PO; -MIRT-119 PO; -POLY17PO4 PO; -PRAV40TA3 PO; -SUVO20TA PO; -TRAZ-257 PO
--- NOTE | 2021-01-12 21:10 | NUR ---
LORIE FROM [facility]. PER EMT, PT CALLED FAMILY MEMBER EARLIER TODAY STATING THOUGHTS OF SUICIDAL IDEATION. PT AAOX3. VITAL SIGNS STABLE. RESPIRATIONS EVEN AND UNLABORED. NO ACUTE DISTRESS NOTED AT THIS TIME. PLACED IN GOWN, BELONGINGS COLLECTED AND LOCKED IN PATIENT LOCKER. SITTER AT BEDSIDE. WILL CONTINUE TO MONITOR
[2021-01-12] MEDS ORDERED: IBUPROFEN 600 MG TABLET PO ONE (21:30)
[2021-01-12 21:39] LABS: BASOPHILS % (AUTO) 0.4 % (0.0-2.0); EOSINOPHILS % (AUTO) 1.4 % (0.0-6.0); HEMATOCRIT 40 % (39-51); HEMOGLOBIN 13.3 g/dL (13.5-17.5); LYMPHOCYTES # (AUTO) 2.3 /CMM (0.8-4.8); LYMPHOCYTES % (AUTO) 38.3 % (20.0-44.0); MEAN CORPUSCULAR HGB CONC 34 g/dl (31.0-36.0); MEAN CORPUSCULAR VOLUME 99 fL (80-96); MONOCYTES # (AUTO) 0.9 /CMM (0.1-1.30); MONOCYTES % (AUTO) 14.2 % (2.0-12.0); NEUTROPHILS # (AUTO) 2.8 /CMM (1.8-8.9); NEUTROPHILS % (AUTO) 45.7 % (43.0-81.0); PLATELET COUNT (AUTO) 199 /CMM (150-450); RED BLOOD CELL COUNT(AUTO) 4.03 MIL/uL (4.5-6.0); WHITE BLOOD COUNT (AUTO) 6.1 K/uL (4.3-11.0)
[2021-01-12 22:30] LABS: CALCIUM, SERUM 8.8 mg/dL (8.5-10.1); CARBON DIOXIDE 32 mmol/L (21-32); CHLORIDE 96 mmol/L (98-107); CREATININE 0.8 mg/dL (0.6-1.3); GLUCOSE 111 mg/dL (74-106); POTASSIUM 3.8 mmol/L (3.5-5.1); SODIUM SERUM 133 mmol/L (136-145); UREA NITROGEN, BLOOD 13 mg/dL (7-18)
[2021-01-12 22:36] LABS: ACETAMINOPHEN 3 ug/ml (10-30); ALANINE AMINOTRANSFERASE 13 U/L (12-78); ALBUMIN 2.6 g/dL (3.4-5.0); ALCOHOL, BLOOD < 3 mg/dL (0-0); ALKALINE PHOSPHATASE 53 U/L (46-116); ASPARTATE AMINOTRANSFERASE 21 U/L (15-37); BILIRUBIN,DIRECT 0.1 mg/dL (0.0-0.2); BILIRUBIN,TOTAL 0.2 mg/dL (0.2-1.0); TOTAL PROTEIN, SERUM 6.7 g/dL (6.4-8.2)
--- NOTE | 2021-01-13 01:27 | NUR ---
report given to damian stanley for rubi.
[2021-01-13 02:00] VITALS: BP 159/97
[2021-01-13] MEDS ORDERED: BLOOD SUGAR DIAGNOSTIC 1 EACH STRIP IN ONE (02:30)
[2021-01-13] MEDS ORDERED: MAG HYDROX/AL HYDROX/SIMETH 30 ML UDC PO PRN ×2 (02:30→18:30)
[2021-01-13] MEDS ORDERED: MAGNESIUM HYDROXIDE 30 ML UDC PO PRN ×2 (02:30→18:30)
--- NOTE | 2021-01-13 03:00 | NUR ---
ADMISSION NOTES: AT 0157, ADMITTED 75Y/O MALE FROM [facility] /INITIALLY FROM [facility] TO GPS UNIT ON 5150 HOLD. PER HOLD PT. INFORMED CLINICIAN," I WANT TO KILL MYSELF." PT. WAS UNABLE TO REMEMBER SPECIFIC OF HIS PLAN. HE WAS NOT SPEAKING APPROPRIATELY, SAYING HE FORGOT MULTIPLE TIMES. RN FROM SNF REPORTS THAT PT. WAS YELLING, HAVING MOOD SWINGS & OUTBURSTS. PT. ALSO CALLED A FAMILY MEMBER & STATED HE WANTED TO KILL HIMSELF. PT. IS DX WITH DEMENTIA, SCHIZOPHRENIA, BIPOLAR D/O & MAJOR DEPRESSIVE DISORDER. UPON FACE TO FACE ASSESSMENT PATIENT IS A & O X 1-2, COOPERATIVE, FLAT AFFECT, DEPRESSED AT TIMES, ANXIOUS/RESTLESS AT TIMES, DISORGANIZED, CONFUSED & FORGETFUL, PT. IS REDIRECTABLE. ASSESSED PATIENT FOR SUICIDAL IDEATION, PATIENT STATED," IT WAS A SARCASTIC JOKE THAT I MADE TO RAFAEL & I ALWAYS JOKE AROUND LIKE THAT, THIS IS NOT THE FIRST TIME, BUT I DO NOT WANT TO & I HAVE NO PLAN TO HURT MYSELF." PT. DENIED SI/HI UPON ADMISSION. PT. IS A POOR HISTORIAN. PT. HAS POOR INSIGHT, POOR JUDGEMENT. PT. REFUSED TO SIGNS ADMISSION CONSENT PAPERS DUE TO MENTAL STATUS. PT. REFUSED FLU & PNEUMO VACCINE WELL. INITIAL BLOOD SUGAR CHECK DONE & IS 81 MG/DL, SKIN ASSESSMENT DONE, PICTURE TAKEN. BOTH MD AWARE AND NOTIFIED OF THE ADMISSION, BELONGINGS CONTRABAND WERE DONE, PT. RIGHTS DISCUSS BY INSIDE SALES ACCOUNT EXECUTIVE, PROVIDED THE PT. WITH HANDBOOK, MEDICATIONS GUIDE, ENVIRONMENTAL SAFETY CHECK DONE, PT. IS UNABLE TO WALK INDEPENDENTLY DUE TO WEAKNESS. PT. NEEDS ASSISTANCE WITH ADL CARE. INCONTINENT, ENCOURAGED PT. VERBALIZE ANY FEELING CONCERN TO STAFF, ORIENT TO UNIT POLICY, NO ACUTE DISTRESS NOTED, VITAL SIGNS WNL, DENIES ANY PAIN AT THIS TIME, WILL CONTINUE TO MONITOR FOR Q15 SAFETY, MOOD AND BEHAVIOR.
[2021-01-13] MEDS ORDERED: DIVA125C2 PO (03:11)
[2021-01-13] MEDS ORDERED: ALBU2.5V13 NEB (03:18)
[2021-01-13] MEDS ORDERED: NA P133E RC (03:19)
[2021-01-13] MEDS ORDERED: MAGN400T26 PO (03:23)
[2021-01-13] MEDS ORDERED: QUET50TA PO (03:29)
[2021-01-13] MEDS ORDERED: LACT1CAP94 PO (03:30)
[2021-01-13] MEDS ORDERED: AMIN30LI2 PO (03:33)
--- NOTE | 2021-01-13 03:39 | NUR ---
RN NOTE NOTIFIED CHARLIE ROMO TO RECONCILE HOME MEDS.
[2021-01-13] MEDS ORDERED: Z GUARD REMEDY 4 OZ OINT TP PRN (04:30)
--- NOTE | 2021-01-13 05:43 | NUR ---
RN NOTE PATIENT IS SLEEPING WELL & COMFORTABLY AT THIS TIME.
--- NOTE | 2021-01-13 07:10 | NUR ---
RN NOTE CALLED RAFAEL, GUARDIAN AT [phone] & INFORMED HER ABOUT PATIENT'S ADMISSION TO GPS UNIT. RAFAEL WANTS TO TALK TO DR. HOFFMAN TO DISCUSS PLAN OF CARE & DC PLANNING, MESSAGE LEFT FOR DR. KAHN ON COMMUNICATION BOARD & ENDORSED TO AM RN WELL.
[2021-01-13] MEDS ORDERED: MAG30ORA PO (07:48)
[2021-01-13] MEDS ORDERED: MAGN400O6 PO (07:48)
[2021-01-13 08:00] VITALS: BP 132/81
[2021-01-13] MEDS: DULOXETINE HCL 30 MG CAPSULE.DR PO SCH (11:29)
[2021-01-13] MEDS: QUETIAPINE FUMARATE 100 MG TABLET PO SCH ×3 (11:29→21:39)
[2021-01-13] MEDS: DIVALPROEX SODIUM 500 MG TABLET.DR PO SCH ×2 (11:30→21:39)
[2021-01-13] MEDS: GABAPENTIN 300 MG CAPSULE PO SCH ×3 (12:11→21:39)
[2021-01-13] MEDS: LORAZEPAM 0.5 MG TABLET PO PRN (14:27)
[2021-01-13] MEDS: ACETAMINOPHEN 325 MG TABLET PO PRN ×2 (14:27→23:01)
[2021-01-13 16:00] VITALS: BP 136/86
[2021-01-13] MEDS ORDERED: ACETAMINOPHEN 325 MG TABLET PO PRN (18:30)
[2021-01-13] MEDS ORDERED: ALBUTEROL FS 2.5 MG/0.5 ML VIAL.NEB NEB PRN (18:30)
[2021-01-13] MEDS ORDERED: hydrALAZINE HCL 25 MG TABLET PO PRN (18:30)
[2021-01-13] MEDS ORDERED: LACTULOSE 10 G/15 ML UDC (PYXIS) PO PRN (18:30)
[2021-01-13 20:21] VITALS: BP 93/59
[2021-01-13] MEDS ORDERED: GABAPENTIN 300 MG CAPSULE PO SCH (21:00)
[2021-01-13] MEDS: ATORVASTATIN 10 MG TABLET PO SCH (21:39)
--- NOTE | 2021-01-13 23:01 | NUR ---
NURSES NOTES: patient complained of mild back pain, requested for tylenol 650 mg - given orally as prn order. will monitor efficacy.
[2021-01-14 06:53] LABS: ALBUMIN 2.5 g/dL (3.4-5.0); BILIRUBIN,TOTAL 0.2 mg/dL (0.2-1.0); CALCIUM, SERUM 8.6 mg/dL (8.5-10.1); CREATININE 0.9 mg/dL (0.6-1.3); TOTAL PROTEIN, SERUM 6.3 g/dL (6.4-8.2)
[2021-01-14 08:00] VITALS: BP 124/84
[2021-01-14] MEDS: LEVOTHYROXINE SODIUM 112 MCG TABLET PO SCH (08:26)
[2021-01-14] MEDS: QUETIAPINE FUMARATE 100 MG TABLET PO SCH ×3 (09:06→21:17)
[2021-01-14] MEDS: ASPIRIN 81 MG TAB.CHEW PO SCH (09:06)
[2021-01-14] MEDS: DIVALPROEX SODIUM 500 MG TABLET.DR PO SCH ×2 (09:06→21:17)
[2021-01-14] MEDS: DULOXETINE HCL 30 MG CAPSULE.DR PO SCH (09:07)
[2021-01-14] MEDS: FAMOTIDINE (20 MG) 20 MG TABLET PO SCH ×2 (09:07→16:19)
[2021-01-14] MEDS: MAGNESIUM OXIDE 400 MG TABLET PO SCH ×2 (09:07→16:19)
[2021-01-14] MEDS: LACTOBACILLUS RHAMNOSUS GG 1 EACH CAP.SPRINK PO SCH (09:07)
[2021-01-14] MEDS: GABAPENTIN 300 MG CAPSULE PO SCH ×4 (09:07→21:17)
[2021-01-14] MEDS: PROSOURCE / PROSTAT (PYXIS) 30 ML UDC PO SCH ×2 (09:50→16:25)
[2021-01-14 11:16] LABS: THYROID STIMULATING HORMONE 30.373 uIU/mL (0.358-3.74)
[2021-01-14] MEDS: ACIDOPHILUS/BULGARICUS 1 EACH TAB.CHEW PO SCH (16:19)
[2021-01-14 16:35] VITALS: BP 108/66
[2021-01-14 20:00] VITALS: BP 97/62
[2021-01-14] MEDS: ATORVASTATIN 10 MG TABLET PO SCH (21:17)
--- NOTE | 2021-01-15 06:33 | NUR ---
GPS RN CLOSING NOTES: PATIENT CURRENTLY IN BED AWAKE, A/O X1-2. PATIENT SLEPT 7HR AND WAS MED COMPLIANT THIS SHIFT. NO S/S OF DISTRESS. RESPIRATION EVEN AND UNLABORED WITH EQUAL RISE AND FALL OF THE CHEST ON ROOM AIR. ALL PATIENT CARE NEEDS HAVE BEEN MET ANTICIPATED. WILL CONTINUE TO MONITOR FOR SAFETY, MOOD AND BEHAVIOR AND ENDORSE TO AM SHIFT.
[2021-01-15 08:00] VITALS: BP 136/94
[2021-01-15] MEDS: LEVOTHYROXINE SODIUM 112 MCG TABLET PO SCH (08:16)
[2021-01-15] MEDS: ASPIRIN 81 MG TAB.CHEW PO SCH (08:17)
[2021-01-15] MEDS: DULOXETINE HCL 30 MG CAPSULE.DR PO SCH (08:17)
[2021-01-15] MEDS: LACTOBACILLUS RHAMNOSUS GG 1 EACH CAP.SPRINK PO SCH (08:17)
[2021-01-15] MEDS: GABAPENTIN 300 MG CAPSULE PO SCH ×4 (08:17→21:00)
[2021-01-15] MEDS: FAMOTIDINE (20 MG) 20 MG TABLET PO SCH ×2 (08:17→16:26)
[2021-01-15] MEDS: ACIDOPHILUS/BULGARICUS 1 EACH TAB.CHEW PO SCH ×2 (08:17→16:26)
[2021-01-15] MEDS: MAGNESIUM OXIDE 400 MG TABLET PO SCH ×2 (08:17→16:26)
[2021-01-15] MEDS: DIVALPROEX SODIUM 500 MG TABLET.DR PO SCH ×2 (08:17→21:00)
[2021-01-15] MEDS: ACETAMINOPHEN 325 MG TABLET PO PRN (08:17)
[2021-01-15] MEDS: QUETIAPINE FUMARATE 100 MG TABLET PO SCH ×3 (08:18→22:00)
[2021-01-15] MEDS: PROSOURCE / PROSTAT (PYXIS) 30 ML UDC PO SCH ×2 (09:00→16:26)
[2021-01-15] MEDS: LORAZEPAM 0.5 MG TABLET PO PRN (12:52)
--- NOTE | 2021-01-15 12:52 | NUR ---
RN NOTE- PT ANXIOUS AND IRRITABLE . ATIVAN 1 MG GIVEN
[2021-01-15 16:00] VITALS: BP 116/74
--- NOTE | 2021-01-15 17:54 | NUR ---
RN NOTE- LAB NOTIIED THAT PT IS + MRSA NARES. BACTROBAN ORDERED
[2021-01-15 20:05] VITALS: BP 132/91
[2021-01-15] MEDS: MUPIROCIN OINT 2% 22 GM TUBE NS SCH (21:23)
[2021-01-15] MEDS: ATORVASTATIN 10 MG TABLET PO SCH (22:00)
--- NOTE | 2021-01-15 22:11 | NUR ---
RN NOTE: HELD 2100 & 2200 MEDS PATIENT IS TOO SLEEPY AT THIS TIME, UNABLE TO SWALLOW MEDS SAFELY. HELD 2100 & 2200 SCHEDULED MEDS. PATIENT HAS HISTORY OF DYSPHAGIA. CHARGE NURSE MADE AWARE. WILL CONTINUE TO MONITOR THE PATIENT FOR ANY CHANGE OF CONDITION.
--- NOTE | 2021-01-16 05:43 | NUR ---
RN NOTE PATIENT SLEPT WELL AT NIGHT, AWAKE AT THIS TIME, ASSISTED PATIENT TO THE BATHROOM USING A WALKER & 1 PERSON ASSIST. PT. NEEDS ASSISTANCE WITH ADL CARE DUE TO WEAKNESS. NO BEHAVIOR EPISODES NOTED THROUGH OUT THE NIGHT. REDIRECTABLE. PATIENT HAD SNACK & ORANGE JUICE AT THIS TIME, TOLERATED WELL. HOB AT 45 DEGREE AT ALL TIMES TO PREVENT ASPIRATION. WILL CONTINUE TO MONITOR THE PATIENT FOR ANY JORDY.
[2021-01-16 08:00] VITALS: BP 119/73
[2021-01-16] MEDS: LEVOTHYROXINE SODIUM 112 MCG TABLET PO SCH (08:25)
[2021-01-16] MEDS: GABAPENTIN 300 MG CAPSULE PO SCH ×4 (08:41→21:25)
[2021-01-16] MEDS: ACIDOPHILUS/BULGARICUS 1 EACH TAB.CHEW PO SCH ×2 (08:41→16:49)
[2021-01-16] MEDS: FAMOTIDINE (20 MG) 20 MG TABLET PO SCH ×2 (08:41→16:50)
[2021-01-16] MEDS: ASPIRIN 81 MG TAB.CHEW PO SCH (08:41)
[2021-01-16] MEDS: QUETIAPINE FUMARATE 100 MG TABLET PO SCH ×3 (08:41→21:26)
[2021-01-16] MEDS: DIVALPROEX SODIUM 500 MG TABLET.DR PO SCH ×2 (08:41→21:26)
[2021-01-16] MEDS: DULOXETINE HCL 30 MG CAPSULE.DR PO SCH (08:42)
[2021-01-16] MEDS: MAGNESIUM OXIDE 400 MG TABLET PO SCH ×2 (08:42→16:49)
[2021-01-16] MEDS: LACTOBACILLUS RHAMNOSUS GG 1 EACH CAP.SPRINK PO SCH (08:42)
[2021-01-16] MEDS: MUPIROCIN OINT 2% 22 GM TUBE NS SCH ×2 (08:49→21:26)
[2021-01-16] MEDS: PROSOURCE / PROSTAT (PYXIS) 30 ML UDC PO SCH ×2 (08:49→16:50)
--- NOTE | 2021-01-16 09:00 | NUR ---
RN NOTE- PT ANXIOUS YELLING AT STAFF AT TIMES. PT CONFUSED DISORGANIZED REDIRECTED REALITY ORIENTATION PRN PO INTAKE GOOD MED COMPLIANT
--- NOTE | 2021-01-16 10:23 | NUR ---
SNF Contact: RASHAWN contacted Britney ([phone]), retail event coordinator from [facility], who stated that the pt can return to the facility once he is stable.
--- NOTE | 2021-01-16 10:26 | NUR ---
Conservator Contact: RASHAWN contacted the pts conservator, Milton Dio ([phone]), who stated that he would like the pt to return to the facility. SW stated that she would keep him updated on when the pt has stabilized and is ready for the discharge back to the facility.
--- NOTE | 2021-01-16 10:40 | NUR ---
Point of Contact: RASHAWN called Mirtha ([phone]), pts guardian, who stated that she wanted to have a lengthy conversation with the psychiatrist and the pts outside psychiatrist and RASHAWN stated that she can pass along the message. RASHAWN stated that she will also keep her updated on the pts discharge.
--- NOTE | 2021-01-16 13:45 | NUR ---
RN NOTE- PT SCREAMING IRRITABLE NON DIRECTABLE. DR KAHN ORDERED ZYPREXA 5 MG IM STAT. COMPLIED
[2021-01-16] MEDS ORDERED: OLANZAPINE 10 MG VIAL IM STA (14:03)
--- NOTE | 2021-01-16 14:04 | NUR ---
Initial Discharge Plan: Pt currently resides at [facility] located at [address] [place] [address]; ([phone]). Per facility, the pt will be accepted back. Per pts conservator, Ronal Wharton ([phone]), he would like the pt to return. RASHAWN will work with the pt, pts conservator, and the pts MD regarding appropriate discharge planning. SW will form a safe and proper discharge.
--- NOTE | 2021-01-16 14:20 | NUR ---
RN NOTE- ZYPREXA 5 MG GIVEN IM.
--- NOTE | 2021-01-16 14:55 | NUR ---
RN NOTE- PT QUIET, MEDICATIONS EFFECTIVE .
[2021-01-16 16:00] VITALS: BP 112/72
[2021-01-16 20:57] VITALS: BP 125/77
[2021-01-16] MEDS: ATORVASTATIN 10 MG TABLET PO SCH (21:26)
[2021-01-17] MEDS: CYCLOBENZAPRINE 10 MG TABLET PO PRN ×2 (00:19→13:29)
[2021-01-17 08:00] VITALS: BP 123/72
[2021-01-17] MEDS: GABAPENTIN 300 MG CAPSULE PO SCH ×4 (09:11→21:39)
[2021-01-17] MEDS: ASPIRIN 81 MG TAB.CHEW PO SCH (09:11)
[2021-01-17] MEDS: ACIDOPHILUS/BULGARICUS 1 EACH TAB.CHEW PO SCH ×2 (09:11→16:42)
[2021-01-17] MEDS: FAMOTIDINE (20 MG) 20 MG TABLET PO SCH ×2 (09:11→16:42)
[2021-01-17] MEDS: MAGNESIUM OXIDE 400 MG TABLET PO SCH ×2 (09:11→16:42)
[2021-01-17] MEDS: DULOXETINE HCL 30 MG CAPSULE.DR PO SCH (09:11)
[2021-01-17] MEDS: LEVOTHYROXINE SODIUM 112 MCG TABLET PO SCH (09:11)
[2021-01-17] MEDS: LACTOBACILLUS RHAMNOSUS GG 1 EACH CAP.SPRINK PO SCH (09:11)
[2021-01-17] MEDS: DIVALPROEX SODIUM 500 MG TABLET.DR PO SCH ×2 (09:11→21:39)
[2021-01-17] MEDS: QUETIAPINE FUMARATE 100 MG TABLET PO SCH ×3 (09:12→21:39)
[2021-01-17] MEDS: PROSOURCE / PROSTAT (PYXIS) 30 ML UDC PO SCH ×2 (09:12→16:42)
[2021-01-17] MEDS: MUPIROCIN OINT 2% 22 GM TUBE NS SCH ×2 (09:23→21:39)
--- NOTE | 2021-01-17 13:39 | NUR ---
MS/RN NOTE CHARGE NURSE NOTIFIED ME THAT PATIENT WAS IN PAIN WHILE I WAS ON LUNCH BREAK. ASSESSED PATIENT FOR PAIN. PATIENT STATED HAVING BACK PAIN, FLEXIRIL WAS GIVEN.
[2021-01-17 16:00] VITALS: BP 100/54
[2021-01-17 20:55] VITALS: BP 96/62
[2021-01-17 21:38] VITALS: BP 112/73
[2021-01-17] MEDS: ATORVASTATIN 10 MG TABLET PO SCH (21:39)
[2021-01-18] MEDS: ACETAMINOPHEN 325 MG TABLET PO PRN ×2 (01:11→08:34)
[2021-01-18 08:00] VITALS: BP 130/74
[2021-01-18] MEDS: LEVOTHYROXINE SODIUM 112 MCG TABLET PO SCH (08:19)
[2021-01-18] MEDS: CYCLOBENZAPRINE 10 MG TABLET PO PRN (08:34)
--- NOTE | 2021-01-18 08:34 | NUR ---
RN NOTE- C/O BACK PAIN SPASMS. FLEXERIL 10 MG AND TYLENOL 650 MG GIVEN
--- NOTE | 2021-01-18 09:00 | NUR ---
RN NOTE- IRRITABLE REFUSING RX, SCREAMING REDIRECTED PT IN BED, ASSIST AND MONITOR
[2021-01-18] MEDS: FAMOTIDINE (20 MG) 20 MG TABLET PO SCH ×2 (09:15→16:05)
[2021-01-18] MEDS: DIVALPROEX SODIUM 500 MG TABLET.DR PO SCH ×2 (09:16→21:27)
[2021-01-18] MEDS: MAGNESIUM OXIDE 400 MG TABLET PO SCH ×2 (09:16→16:05)
[2021-01-18] MEDS: DULOXETINE HCL 30 MG CAPSULE.DR PO SCH (09:16)
[2021-01-18] MEDS: ACIDOPHILUS/BULGARICUS 1 EACH TAB.CHEW PO SCH ×2 (09:16→16:06)
[2021-01-18] MEDS: GABAPENTIN 300 MG CAPSULE PO SCH ×4 (09:16→21:27)
[2021-01-18] MEDS: ASPIRIN 81 MG TAB.CHEW PO SCH (09:16)
[2021-01-18] MEDS: LACTOBACILLUS RHAMNOSUS GG 1 EACH CAP.SPRINK PO SCH (09:16)
[2021-01-18] MEDS: QUETIAPINE FUMARATE 100 MG TABLET PO SCH ×4 (09:16→21:27)
[2021-01-18] MEDS: PROSOURCE / PROSTAT (PYXIS) 30 ML UDC PO SCH ×2 (09:17→16:06)
[2021-01-18] MEDS: MUPIROCIN OINT 2% 22 GM TUBE NS SCH ×2 (09:17→21:42)
--- NOTE | 2021-01-18 09:44 | NUR ---
Point of Contact: SW called Mirtha ([phone]), pts guardian, and discussed how the SW did not receive the emails that she had sent so she stated that she would stop by the hospital and hand deliver the documents. SW then went over the pts current medications with her and expressed that the pt does not have a current discharge date yet. Mirtha went on to discuss his medical condition and the different procedures that he is going to need and the SW asked that she speak to the nurses or the medical doctor as this is out of the SW's scope.
--- NOTE | 2021-01-18 09:50 | NUR ---
RN NOTE- PT W CONTINUED SCREAMING PARANOIA AND COMBATIVENESS. DR KAHN ORDERED ZYPREXA 5 MG IM STAT. COM,PLIED W STAFF ASSIST.
[2021-01-18] MEDS ORDERED: OLANZAPINE 10 MG VIAL IM STA (09:59)
--- NOTE | 2021-01-18 11:20 | NUR ---
RN NOTE- QUIETER RX EFFECTIVE
--- NOTE | 2021-01-18 11:49 | NUR ---
Probable Cause Hearing: Pts [id number] hold was upheld for grave disability.
--- NOTE | 2021-01-18 12:55 | NUR ---
RN NOTE- PT QUIET. IN BED NOW. . HOB RAISED 45/DEGREES. MONITOR AND ASSIST
[2021-01-18 16:00] VITALS: BP 130/87
--- NOTE | 2021-01-18 19:30 | NUR ---
RN PM NOTE. REPORT RECIEVED FROM LORENA NOBLES. DURING DAY PATIENT WAS LABILE SCREAMING WITH PARANOID IDEATION. AT THIS TIME PT IS CALM. PT IN BED INTERACTS WHEN ENGAGED. DENIES PAIN AT THIS TIME. REPORTS FEELING ANXIOUS. BREATHING EVEN AND UNLABORED DENIES SI/HI. PT ASSISTED WITH URINAL. PT ON FALL PRECAUTIONS HAS UNSTEADY GAIT. VERBALIZED UNDERSTANDING TO CALL FOR ASSISTANCE NEEDED. SAFETY PRECAUTIONS IN PLACE WILL CONT TO MONITOR BEHAVIOR PER PROTOCOL.
[2021-01-18] MEDS: LORAZEPAM 0.5 MG TABLET PO PRN (19:47)
[2021-01-18 20:24] VITALS: BP 111/78
[2021-01-18] MEDS: ATORVASTATIN 10 MG TABLET PO SCH (21:27)
[2021-01-19 08:00] VITALS: BP 135/83
[2021-01-19] MEDS: LACTOBACILLUS RHAMNOSUS GG 1 EACH CAP.SPRINK PO SCH (08:28)
[2021-01-19] MEDS: FAMOTIDINE (20 MG) 20 MG TABLET PO SCH ×2 (08:28→16:22)
[2021-01-19] MEDS: ACIDOPHILUS/BULGARICUS 1 EACH TAB.CHEW PO SCH ×2 (08:28→16:22)
[2021-01-19] MEDS: DULOXETINE HCL 30 MG CAPSULE.DR PO SCH (08:28)
[2021-01-19] MEDS: MAGNESIUM OXIDE 400 MG TABLET PO SCH ×2 (08:28→16:22)
[2021-01-19] MEDS: ASPIRIN 81 MG TAB.CHEW PO SCH (08:28)
[2021-01-19] MEDS: LEVOTHYROXINE SODIUM 112 MCG TABLET PO SCH (08:28)
[2021-01-19] MEDS: QUETIAPINE FUMARATE 100 MG TABLET PO SCH ×4 (08:29→21:59)
[2021-01-19] MEDS: DIVALPROEX SODIUM 500 MG TABLET.DR PO SCH ×2 (08:29→20:35)
[2021-01-19] MEDS: GABAPENTIN 300 MG CAPSULE PO SCH ×4 (08:29→20:35)
[2021-01-19] MEDS: PROSOURCE / PROSTAT (PYXIS) 30 ML UDC PO SCH ×2 (08:34→17:30)
[2021-01-19] MEDS: MUPIROCIN OINT 2% 22 GM TUBE NS SCH ×2 (09:12→20:43)
[2021-01-19 16:00] VITALS: BP 93/64
[2021-01-19] MEDS: CYCLOBENZAPRINE 10 MG TABLET PO PRN (16:22)
[2021-01-19 20:34] VITALS: BP 96/63
[2021-01-19] MEDS: LORAZEPAM 0.5 MG TABLET PO PRN (20:34)
--- NOTE | 2021-01-19 20:52 | NUR ---
GPS RN NOTES: PATIENT AGITATED, RESTLESS, SCREAMING. ATIVAN 0.5MG, 2TABS/1MG GIVEN PO PRN ORDERED AT 2033. WILL CONTINUE TO MONITOR.
[2021-01-19] MEDS: ATORVASTATIN 10 MG TABLET PO SCH (21:59)
--- NOTE | 2021-01-20 06:39 | NUR ---
GPS RN CLOSING NOTES: PATIENT IS SLEEPING COMFORTABLY IN BED. PATIENT SLEPT 7HR THIS SHIFT. PATIENT WAS MED COMPLIANT THIS SHIFT. NO C/O PAIN THIS SHIFT. NO S/S OF DISTRESS. RESPIRATION EVEN AND UNLABORED WITH EQUAL RISE AND FALL OF THE CHEST ON ROOM AIR. ALL PATIENT CARE NEEDS HAVE BEEN MET ANTICIPATED. BED IN LOWEST POSITION AND LOCKED WITH SIDE RAILS UP X2. WILL CONTINUE TO MONITOR FOR SAFETY, MOOD AND BEHAVIOR AND ENDORSE TO AM SHIFT.
[2021-01-20 08:00] VITALS: BP 117/88
[2021-01-20] MEDS: DIVALPROEX SODIUM 500 MG TABLET.DR PO SCH (08:12)
[2021-01-20] MEDS: LEVOTHYROXINE SODIUM 112 MCG TABLET PO SCH (08:12)
[2021-01-20] MEDS: DULOXETINE HCL 30 MG CAPSULE.DR PO SCH (08:13)
[2021-01-20] MEDS: MAGNESIUM OXIDE 400 MG TABLET PO SCH ×2 (08:13→16:32)
[2021-01-20] MEDS: CYCLOBENZAPRINE 10 MG TABLET PO PRN (08:13)
[2021-01-20] MEDS: MUPIROCIN OINT 2% 22 GM TUBE NS SCH ×2 (08:13→21:05)
[2021-01-20] MEDS: ASPIRIN 81 MG TAB.CHEW PO SCH (08:13)
[2021-01-20] MEDS: QUETIAPINE FUMARATE 100 MG TABLET PO SCH ×4 (08:13→21:05)
[2021-01-20] MEDS: ACIDOPHILUS/BULGARICUS 1 EACH TAB.CHEW PO SCH ×2 (08:23→16:32)
[2021-01-20] MEDS: LACTOBACILLUS RHAMNOSUS GG 1 EACH CAP.SPRINK PO SCH (08:23)
[2021-01-20] MEDS: FAMOTIDINE (20 MG) 20 MG TABLET PO SCH ×2 (08:23→16:32)
[2021-01-20] MEDS: GABAPENTIN 300 MG CAPSULE PO SCH ×4 (08:23→21:05)
[2021-01-20] MEDS: PROSOURCE / PROSTAT (PYXIS) 30 ML UDC PO SCH ×2 (09:09→17:44)
[2021-01-20 16:00] VITALS: BP 117/81
[2021-01-20 20:41] VITALS: BP 114/75
[2021-01-20] MEDS: ATORVASTATIN 10 MG TABLET PO SCH (21:05)
[2021-01-20] MEDS: DIVALPROEX SODIUM 125 MG CAP.SPRINK PO SCH (21:05)
[2021-01-21] MEDS: LEVOTHYROXINE SODIUM 112 MCG TABLET PO SCH (07:49)
[2021-01-21 08:00] VITALS: BP 124/79
[2021-01-21] MEDS: ASPIRIN 81 MG TAB.CHEW PO SCH (09:10)
[2021-01-21] MEDS: DULOXETINE HCL 30 MG CAPSULE.DR PO SCH (09:10)
[2021-01-21] MEDS: FAMOTIDINE (20 MG) 20 MG TABLET PO SCH ×2 (09:10→16:17)
[2021-01-21] MEDS: GABAPENTIN 300 MG CAPSULE PO SCH ×4 (09:10→20:30)
[2021-01-21] MEDS: QUETIAPINE FUMARATE 100 MG TABLET PO SCH ×4 (09:10→22:05)
[2021-01-21] MEDS: MAGNESIUM OXIDE 400 MG TABLET PO SCH ×2 (09:11→16:17)
[2021-01-21] MEDS: DIVALPROEX SODIUM 125 MG CAP.SPRINK PO SCH ×2 (09:11→20:29)
[2021-01-21] MEDS: PROSOURCE / PROSTAT (PYXIS) 30 ML UDC PO SCH ×2 (09:11→16:17)
[2021-01-21] MEDS: ACIDOPHILUS/BULGARICUS 1 EACH TAB.CHEW PO SCH ×2 (09:11→16:17)
[2021-01-21] MEDS: LACTOBACILLUS RHAMNOSUS GG 1 EACH CAP.SPRINK PO SCH (09:11)
[2021-01-21] MEDS: MUPIROCIN OINT 2% 22 GM TUBE NS SCH ×2 (09:11→20:29)
[2021-01-21] MEDS: CYCLOBENZAPRINE 10 MG TABLET PO PRN (11:53)
[2021-01-21 16:00] VITALS: BP 126/77
[2021-01-21 20:07] VITALS: BP 117/68
[2021-01-21] MEDS: ATORVASTATIN 10 MG TABLET PO SCH (22:04)
--- NOTE | 2021-01-22 06:45 | NUR ---
RN NOTES, PATIENT SLEEPING AT THIS TIME, NO DISTRESS NOTED DURING SHIFT, ADEQUATE INTAKE AND OUTPUT, WITH ADEQUATE HOURS OF SLEEP, PLEASANT AND COOPERATIVE WITH CARE, COMPLIANT WITH MEDICATION WELL, NO DISRUPTIVE BEHAVIOR NOTED, THROUGHOUT THE SHIFT, HAD SNACK LAST NIGHT AND CONSUME 100%, WILL ENDORSE CONTINUITY OF CARE TO ONCOMING NURSE
[2021-01-22 07:05] LABS: BASOPHILS % (AUTO) 0.5 % (0.0-2.0); EOSINOPHILS % (AUTO) 2.7 % (0.0-6.0); HEMATOCRIT 35 % (39-51); LYMPHOCYTES # (AUTO) 2.7 /CMM (0.8-4.8); LYMPHOCYTES % (AUTO) 40.5 % (20.0-44.0); MEAN CORPUSCULAR HGB CONC 34 g/dl (31.0-36.0); MEAN CORPUSCULAR VOLUME 97 fL (80-96); MONOCYTES % (AUTO) 15.1 % (2.0-12.0); NEUTROPHILS # (AUTO) 2.7 /CMM (1.8-8.9); NEUTROPHILS % (AUTO) 41.2 % (43.0-81.0); PLATELET COUNT (AUTO) 213 /CMM (150-450); RED BLOOD CELL COUNT(AUTO) 3.65 MIL/uL (4.5-6.0); WHITE BLOOD COUNT (AUTO) 6.7 K/uL (4.3-11.0)
[2021-01-22 07:56] LABS: CALCIUM, SERUM 8.3 mg/dL (8.5-10.1); CARBON DIOXIDE 31 mmol/L (21-32); CHLORIDE 94 mmol/L (98-107); GLUCOSE 90 mg/dL (74-106); MAGNESIUM 1.7 mg/dL (1.8-2.4); PHOSPHORUS 3.7 mg/dL (2.5-4.9); SODIUM SERUM 129 mmol/L (136-145); UREA NITROGEN, BLOOD 24 mg/dL (7-18)
[2021-01-22 08:00] VITALS: BP 109/69
[2021-01-22] MEDS: PROSOURCE / PROSTAT (PYXIS) 30 ML UDC PO SCH ×2 (09:00→18:41)
[2021-01-22] MEDS: LEVOTHYROXINE SODIUM 112 MCG TABLET PO SCH (10:18)
[2021-01-22] MEDS: DIVALPROEX SODIUM 125 MG CAP.SPRINK PO SCH ×2 (10:19→22:41)
[2021-01-22] MEDS: GABAPENTIN 300 MG CAPSULE PO SCH ×4 (10:20→22:41)
[2021-01-22] MEDS: DULOXETINE HCL 30 MG CAPSULE.DR PO SCH (10:21)
[2021-01-22] MEDS: ACIDOPHILUS/BULGARICUS 1 EACH TAB.CHEW PO SCH ×2 (10:21→18:41)
[2021-01-22] MEDS: ASPIRIN 81 MG TAB.CHEW PO SCH (10:21)
[2021-01-22] MEDS: FAMOTIDINE (20 MG) 20 MG TABLET PO SCH ×2 (10:21→18:39)
[2021-01-22] MEDS: QUETIAPINE FUMARATE 100 MG TABLET PO SCH ×4 (10:22→22:41)
[2021-01-22] MEDS: LACTOBACILLUS RHAMNOSUS GG 1 EACH CAP.SPRINK PO SCH (10:23)
[2021-01-22] MEDS: MUPIROCIN OINT 2% 22 GM TUBE NS SCH ×2 (10:30→22:53)
[2021-01-22] MEDS: MAGNESIUM OXIDE 400 MG TABLET PO SCH ×2 (10:33→18:39)
[2021-01-22] MEDS ORDERED: MAGNESIUM OXIDE 400 MG TABLET PO ONE (12:00)
--- NOTE | 2021-01-22 15:20 | NUR ---
Conservator Contact: RASHAWN contacted the pts conservator, Milton Wharton ([phone]), and informed him that the pt is going to be discharged on Thursday.
--- NOTE | 2021-01-22 15:22 | NUR ---
Point of Contact: RASHAWN called Mirtha ([phone]), pts guardian, and informed her that the pt is going to be discharged back to [facility] on Thursday and went over the medications with her.
[2021-01-22 16:00] VITALS: BP 114/67
--- NOTE | 2021-01-22 16:29 | NUR ---
call out to dr. ocampo for straight cath order for urine sample.awaiting call back.refusing ls x-ray.
--- NOTE | 2021-01-22 18:45 | NUR ---
NO RETURN CALL FROM DR. RUIZ.
--- NOTE | 2021-01-22 19:30 | NUR ---
RN PM GPS NOTE REPORT RECIEVED FROM EDWIGE Guillen PATIENT IN BED AT THIS TIME, INTEREACT WHEN ENGAGED WELL, DENIES SI/HI AT THIS TIME, COOPERATES WITH CARE, NO S/S OF ANY ACUTE DISTRESS, WILL CONTINUE TO MONITOR. BED ALARM ACTIVE FOR HIGH FALL RISK.
[2021-01-22 20:44] VITALS: BP 109/62
[2021-01-22] MEDS: ATORVASTATIN 10 MG TABLET PO SCH (22:40)
[2021-01-22] MEDS: ZOLPIDEM TARTRATE 5 MG TABLET PO PRN (22:42)
[2021-01-23 08:00] VITALS: BP 112/63
[2021-01-23] MEDS: DIVALPROEX SODIUM 125 MG CAP.SPRINK PO SCH ×2 (08:21→21:13)
[2021-01-23] MEDS: GABAPENTIN 300 MG CAPSULE PO SCH ×4 (08:22→21:20)
[2021-01-23] MEDS: LEVOTHYROXINE SODIUM 112 MCG TABLET PO SCH (08:22)
[2021-01-23] MEDS: ACIDOPHILUS/BULGARICUS 1 EACH TAB.CHEW PO SCH ×2 (08:22→18:28)
[2021-01-23] MEDS: LACTOBACILLUS RHAMNOSUS GG 1 EACH CAP.SPRINK PO SCH (08:22)
[2021-01-23] MEDS: ACETAMINOPHEN 325 MG TABLET PO PRN (08:22)
[2021-01-23] MEDS: FAMOTIDINE (20 MG) 20 MG TABLET PO SCH ×2 (08:22→18:24)
[2021-01-23] MEDS: QUETIAPINE FUMARATE 100 MG TABLET PO SCH ×4 (08:22→21:14)
[2021-01-23] MEDS: ASPIRIN 81 MG TAB.CHEW PO SCH (08:22)
[2021-01-23] MEDS: MUPIROCIN OINT 2% 22 GM TUBE NS SCH ×2 (08:23→21:14)
[2021-01-23] MEDS: MAGNESIUM OXIDE 400 MG TABLET PO SCH ×2 (08:23→18:24)
[2021-01-23] MEDS: DULOXETINE HCL 30 MG CAPSULE.DR PO SCH (08:23)
[2021-01-23] MEDS: PROSOURCE / PROSTAT (PYXIS) 30 ML UDC PO SCH ×2 (08:25→18:29)
--- NOTE | 2021-01-23 12:32 | NUR ---
MRI APPROVED BY DR. BATRES,SSRS REPORT DEVELOPER NOTIFIED, NURSE EDWIGE WILL LET US KNOW WHEN PATIENT IS CALM ENOUGH TO DO THE MRI,EDWIGE WILL CALL ME AUSTIN) [phone].
[2021-01-23] MEDS: CYCLOBENZAPRINE 10 MG TABLET PO PRN (12:40)
--- NOTE | 2021-01-23 12:40 | NUR ---
GIVEN FLEXERIL FOR BACK PAIN.
--- NOTE | 2021-01-23 13:30 | NUR ---
RAFAEL ARBOLEDA CONTACTED TO HELP FILL OUT MRI QUESTIONNAIRE.PLANS TO DO MRI TODAY OR TOMORROW.
[2021-01-23 16:00] VITALS: BP 95/61
[2021-01-23 20:00] VITALS: BP 114/77
[2021-01-23] MEDS: ZOLPIDEM TARTRATE 5 MG TABLET PO PRN (21:14)
[2021-01-23] MEDS: ATORVASTATIN 10 MG TABLET PO SCH (21:14)
[2021-01-24 08:00] VITALS: BP 117/69
[2021-01-24] MEDS: DIVALPROEX SODIUM 125 MG CAP.SPRINK PO SCH ×2 (09:01→21:22)
[2021-01-24] MEDS: ACIDOPHILUS/BULGARICUS 1 EACH TAB.CHEW PO SCH ×2 (09:01→17:07)
[2021-01-24] MEDS: DULOXETINE HCL 30 MG CAPSULE.DR PO SCH (09:01)
[2021-01-24] MEDS: MAGNESIUM OXIDE 400 MG TABLET PO SCH ×2 (09:01→17:07)
[2021-01-24] MEDS: LEVOTHYROXINE SODIUM 112 MCG TABLET PO SCH (09:01)
[2021-01-24] MEDS: FAMOTIDINE (20 MG) 20 MG TABLET PO SCH ×2 (09:02→17:07)
[2021-01-24] MEDS: GABAPENTIN 300 MG CAPSULE PO SCH ×4 (09:02→21:22)
[2021-01-24] MEDS: LACTOBACILLUS RHAMNOSUS GG 1 EACH CAP.SPRINK PO SCH (09:02)
[2021-01-24] MEDS: QUETIAPINE FUMARATE 100 MG TABLET PO SCH ×4 (09:02→21:22)
[2021-01-24] MEDS: ASPIRIN 81 MG TAB.CHEW PO SCH (09:02)
[2021-01-24] MEDS: MUPIROCIN OINT 2% 22 GM TUBE NS SCH ×2 (09:04→21:24)
[2021-01-24] MEDS: PROSOURCE / PROSTAT (PYXIS) 30 ML UDC PO SCH ×2 (09:13→17:47)
--- NOTE | 2021-01-24 13:08 | NUR ---
Pt. refused the MRI of the spine and strongly insisting no. Will notify the MD.
[2021-01-24 16:00] VITALS: BP 127/79
[2021-01-24 20:16] VITALS: BP 119/73
[2021-01-24] MEDS: ATORVASTATIN 10 MG TABLET PO SCH (21:22)
[2021-01-25 06:58] LABS: BASOPHILS % (AUTO) 0.5 % (0.0-2.0); EOSINOPHILS % (AUTO) 3.4 % (0.0-6.0); HEMATOCRIT 36 % (39-51); HEMOGLOBIN 12.3 g/dL (13.5-17.5); LYMPHOCYTES # (AUTO) 2.3 /CMM (0.8-4.8); LYMPHOCYTES % (AUTO) 46.5 % (20.0-44.0); MEAN CORPUSCULAR HGB CONC 34 g/dl (31.0-36.0); MEAN CORPUSCULAR VOLUME 97 fL (80-96); MONOCYTES # (AUTO) 0.7 /CMM (0.1-1.30); MONOCYTES % (AUTO) 13.9 % (2.0-12.0); NEUTROPHILS # (AUTO) 1.8 /CMM (1.8-8.9); NEUTROPHILS % (AUTO) 35.7 % (43.0-81.0); PLATELET COUNT (AUTO) 213 /CMM (150-450); RED BLOOD CELL COUNT(AUTO) 3.72 MIL/uL (4.5-6.0)
[2021-01-25 07:07] LABS: CALCIUM, SERUM 8.2 mg/dL (8.5-10.1); CREATININE 0.9 mg/dL (0.6-1.3)
--- NOTE | 2021-01-25 07:55 | NUR ---
GPS CLIENT TECHNICAL SPECIALIST: NOTES PT FOR DISCHARGE TO SNF AT NOON TODAY. COVID TEST NEGATIVE. PT AWARE. WILL CONTINUE TO MONITOR.
[2021-01-25 08:00] VITALS: BP 140/91
[2021-01-25] MEDS: QUETIAPINE FUMARATE 100 MG TABLET PO SCH ×2 (08:14→13:30)
[2021-01-25] MEDS: DIVALPROEX SODIUM 125 MG CAP.SPRINK PO SCH (08:14)
[2021-01-25] MEDS: LEVOTHYROXINE SODIUM 112 MCG TABLET PO SCH (08:14)
[2021-01-25] MEDS: GABAPENTIN 300 MG CAPSULE PO SCH ×2 (08:14→13:30)
[2021-01-25] MEDS: MAGNESIUM OXIDE 400 MG TABLET PO SCH (08:14)
[2021-01-25] MEDS: CYCLOBENZAPRINE 10 MG TABLET PO PRN (08:14)
[2021-01-25] MEDS: DULOXETINE HCL 30 MG CAPSULE.DR PO SCH (08:14)
[2021-01-25] MEDS: ASPIRIN 81 MG TAB.CHEW PO SCH (08:14)
[2021-01-25] MEDS: FAMOTIDINE (20 MG) 20 MG TABLET PO SCH (08:14)
[2021-01-25] MEDS: MUPIROCIN OINT 2% 22 GM TUBE NS SCH (08:17)
[2021-01-25] MEDS: LACTOBACILLUS RHAMNOSUS GG 1 EACH CAP.SPRINK PO SCH (08:17)
[2021-01-25] MEDS: PROSOURCE / PROSTAT (PYXIS) 30 ML UDC PO SCH (08:20)
[2021-01-25] MEDS: ACIDOPHILUS/BULGARICUS 1 EACH TAB.CHEW PO SCH (08:24)
--- NOTE | 2021-01-25 08:24 | NUR ---
GPS RECORDING STUDIO SETUP WORKER: NOTES 2 LACTINEX ORDER ON DEC, PHARMACIST MADE AWARE. AM DOSE OF LACTINEX 1 CAP GIVEN.
--- NOTE | 2021-01-25 09:00 | NUR ---
Dr. Palafox gave an order to D/C hold and D/C to [facility]. To continue same meds including prn and to follow up with the psych and medical doctors.
--- NOTE | 2021-01-25 09:05 | NUR ---
GPS MONUMENT LETTERER: NOTES RECEIVED DISCHARGE ORDER FROM DR. KAHN BY CN. ORDER ACKNOWLEDGED. PT AWARE OF EXHAUST EMISSIONS INSPECTOR AT 1330.
--- NOTE | 2021-01-25 09:55 | NUR ---
Point of Contact: RASHAWN called Mirtha ([phone]), pts guardian, and informed her that the pt is being discharged today and transferred her to the business office to handle a financial issue.
--- NOTE | 2021-01-25 09:55 | NUR ---
Conservator Contact: RASHAWN contacted the pts conservator, Milton Wharton ([phone]), and informed him that the pt is going to be discharged to [facility] today.
--- NOTE | 2021-01-25 10:55 | NUR ---
gps bilingual operator: notes [facility] notified, spoke to rodger (rn) and report given for continuity of care. pt stable for discharge. awaiting for ambulance to pick him up this afternoon. pt in the dining room for activity at this time. needs attended. no apparent distress noted. will continue to monitor.
--- NOTE | 2021-01-25 11:32 | NUR ---
Dr. Bell made aware of the discharge, he reconciled the meds and with some orders for the facility.
--- NOTE | 2021-01-25 12:28 | NUR ---
Discharge Note: Pt will be discharged to [facility] ([facility]) located at [address] [place] [address]; ([phone]). Pt will be transported via [facility] at 12pm. Pts conservator, Milton Wharton ([phone]), agreed to this placement. Upon discharge, the pt appears to be in a dysphoric mood and presents with a distressed affect. Pt appears to be oriented x2 (time and self). Pt appears to be groomed and appropriately dressed. Pt appears to be ambulatory with an unsteady gait. Pt denies suicidal and homicidal ideation and denied visual and auditory hallucinations. Pt will continue to follow up with pts psychiatrist, Dr. Palafox, located at [address], [place] [address]; and pts jailer, Dr. Calix, located at [address] [place] [address]; . Pt was not able to sign the Choice of Vendor form due to pts psychosis. RN and SW cosigned and the form was placed in the chart. The multidisciplinary exit care form was done, printed, signed, and given to the patient.
--- NOTE | 2021-01-25 13:45 | NUR ---
GPS ANSWERING SERVICE OPERATOR: NOTES AMBULANCE HERE AND REPORT GIVEN TO ONE OF THE CREW.
--- NOTE | 2021-01-25 13:48 | NUR ---
GPS WORKFORCE SPECIALIST: NOTES PT STABLE FOR DISCHARGE. ALL BELONGINGS RETURNED AND GIVEN TO AMBULANCE CREW. PT DENIED SUICIDAL/HOMICIDAL IDEATION. DENIES AUDITORY/VISUAL HALLUCINATION. NEEDS ATTENDED.
--- NOTE | 2021-01-25 13:58 | NUR ---
gps house mover: notes discharge back to snf in stable condition with belongings accompanied by 2 ambulance crew. vital signs: b/p 109/51, hr 101, rr 18, and satting at 97% on room air.
[2021-01-26] MEDS ORDERED: LEVOTHYROXINE SODIUM 125 MCG TABLET PO SCH (07:30)
== END 2021-01-25 14:00 | DRG 885 ==
LOC: ER 21:02 → GPS 01-13 01:31
PROVIDERS: ADMIT Psychiatry & Neurology Psychiatry; ATTEND Internal Medicine
DX: F31.64 Bipolar disorder, current episode mixed, severe, with psychotic features (principal); E87.1 Hypo-osmolality and hyponatremia; R45.851 Suicidal ideations; F03.91 Unspecified dementia, unspecified severity, with behavioral disturbance; E51.2 Wernicke's encephalopathy; E44.0 Moderate protein-calorie malnutrition; E03.9 Hypothyroidism, unspecified; D64.9 Anemia, unspecified; I10 Essential (primary) hypertension; J44.9 Chronic obstructive pulmonary disease, unspecified; R13.10 Dysphagia, unspecified; K44.9 Diaphragmatic hernia without obstruction or gangrene; D63.8 Anemia in other chronic diseases classified elsewhere; Z88.1 Allergy status to other antibiotic agents; Z79.82 Long term (current) use of aspirin; Z79.899 Other long term (current) drug therapy; Z79.01 Long term (current) use of anticoagulants; G89.29 Other chronic pain; Z79.890 Hormone replacement therapy; Z73.6 Limitation of activities due to disability; Z91.19 Patient's noncompliance with other medical treatment and regimen
CPT/HCPCS: 36415; 72100-TC; 80048-TC; 80053-TC; 80061-TC; 80076-TC; 82962-TC; 83735-TC; 84100-TC; 84439-TC; 84443-TC; 84481; 85025-TC; 87081-TC; 92521; 92526; 97110-TC; 97112-TC; 97116-TC; 97530-TC; C9803; G0480; J3490

== ENCOUNTER 2021-12-13 17:21 | Inpatient (IN) | payer MEDICARE, BC ==
[~2021-12-13] VITALS: Ht 167.6 cm; Wt 70.8 kg
[~2021-12-13 17:21] MED LIST changes: +ALBU2.5V13 NEB; -ALBU8.5H8 IH; +AMIN30LI2 PO; -DIVA-78 PO; -DIVA500T2 PO; -DULO30CA2 PO; -ENOX40DI SQ; -HYDR-3973 PO; -LACT-225 PO; +LACT1CAP94 PO; +MAG30ORA PO; +MAGN400O6 PO; +MAGN400T26 PO; -MELO-107 PO; -MIRT-121 PO; +NA P133E RC; -QUET100T PO
--- NOTE | 2021-12-13 17:35 | NUR ---
PATIENT CAME WITH IV CANNULA G20 ON RIGHT AC. BLOOD DRAWN AND GIVEN TO LAB.
--- NOTE | 2021-12-13 17:35 | NUR ---
[facility]IB[facility] SNF FOR NOTED SOB AND LOW O2 SATURATION TODAY. PLACED COMFORTABLY ON ER BED. OXYGEN INH AT 2LPM. VITALS CHECKED. SEEN BY MARCUS JOHNSON.
--- NOTE | 2021-12-13 17:40 | NUR ---
COVID SWAB DONE AND GIVEN TO TAILOR FITTER
[2021-12-13] MEDS ORDERED: methylPREDNISolone SOD SUCC 125 MG/2ML VIAL ONE (17:41)
[2021-12-13] MEDS ORDERED: Magnesium 1GM/D5W 100ML PREMIX 100 ML IV ONE ×2 (17:41→17:48)
--- NOTE | 2021-12-13 17:52 | NUR ---
CALLED RT FOR BREATHING TREATMENT
[2021-12-13] MEDS ORDERED: ALBUTEROL FS 2.5 MG/3 ML VIAL.NEB NEB ONE (18:00)
[2021-12-13] MEDS ORDERED: Magnesium 1GM/D5W 100ML PREMIX 200 ML IV ONE (18:00)
[2021-12-13] MEDS ORDERED: methylPREDNISolone SOD SUCC 125 MG/2ML VIAL IV ONE (18:00)
[2021-12-13] MEDS ORDERED: IPRATROPIUM NEB FS 0.5 MG/2.5 ML AMPUL.NEB NEB ONE (18:00)
--- NOTE | 2021-12-13 18:00 | NUR ---
CXR DONE AT BEDSIDE
[2021-12-13] MEDS ORDERED: IPRATROPIUM NEB FS 0.5 MG/2.5 ML AMPUL.NEB ONE (18:04)
[2021-12-13] MEDS ORDERED: ALBUTEROL FS 2.5 MG/3 ML VIAL.NEB ONE (18:04)
[2021-12-13 18:06] LABS: BASOPHILS % (AUTO) 0.7 % (0.0-2.0); EOSINOPHILS % (AUTO) 2.6 % (0.0-6.0); HEMATOCRIT 43 % (39-51); HEMOGLOBIN 14.4 g/dL (13.5-17.5); LYMPHOCYTES # (AUTO) 2.5 K/uL (0.8-4.8); MEAN CORPUSCULAR HGB CONC 34 g/dl (31.0-36.0); MEAN CORPUSCULAR VOLUME 95 fL (80-96); MONOCYTES # (AUTO) 0.7 K/uL (0.1-1.30); MONOCYTES % (AUTO) 11.1 % (2.0-12.0); NEUTROPHILS # (AUTO) 2.8 K/uL (1.8-8.9); NEUTROPHILS % (AUTO) 45.6 % (43.0-81.0); PLATELET COUNT (AUTO) 223 K/uL (150-450); WHITE BLOOD COUNT (AUTO) 6.2 K/uL (4.3-11.0)
[2021-12-13 18:15] LABS: CALCIUM, SERUM 8.9 mg/dL (8.5-10.1); CARBON DIOXIDE 38 mmol/L (21-32); CHLORIDE 93 mmol/L (98-107); CREATININE 0.8 mg/dL (0.6-1.3); GLUCOSE 119 mg/dL (74-106); POTASSIUM 4.3 mmol/L (3.5-5.1); SODIUM SERUM 132 mmol/L (136-145); UREA NITROGEN, BLOOD 14 mg/dL (7-18)
[2021-12-13 18:27] LABS: ALANINE AMINOTRANSFERASE 16 U/L (12-78); ALBUMIN 3.2 g/dL (3.4-5.0); ALKALINE PHOSPHATASE 62 U/L (46-116); ASPARTATE AMINOTRANSFERASE 24 U/L (15-37); BILIRUBIN,TOTAL 0.2 mg/dL (0.2-1.0); TOTAL PROTEIN, SERUM 7.9 g/dL (6.4-8.2)
--- NOTE | 2021-12-13 18:28 | NUR ---
RT NEBULIZED BREATHING TX DONE
--- NOTE | 2021-12-13 18:53 | NUR ---
[phone] (CONSERVATOR) [phone] GEOVANNA CHOW (CONSERVATOR)
[2021-12-13] MEDS ORDERED: LEVOFLOXACIN 750 MG /D5W 150ML PIGGYBACK IV ONE (19:00)
[2021-12-13] MEDS ORDERED: LEVOFLOXACIN 750 MG /D5W 150ML 150 ML IV ONE (19:20)
--- NOTE | 2021-12-13 19:44 | NUR ---
[facility] CALLED OPERATIONS LABEL CLERK PAGED.
--- NOTE | 2021-12-13 20:00 | NUR ---
ABG DONE AT BEDSIDE
[2021-12-13 20:17] LABS: ABG BASE EXCESS 6.6 mmol/L; ABG PCO2 63.8 mmHg (35.0-45.0); ABG PH 7.352 (7.350-7.450); ABG PO2 60.3 mmHg (75.0-100.0); COHb 0.9 % (0.5-1.5); MetHb 0.2 % (0.0-1.5); O2Hb 88.7 % (94.0-97.0); SITE, ABG Right Radial; VENT MODE, BG 6 L NC
--- NOTE | 2021-12-13 20:40 | NUR ---
MRSA SWAB COLLECTED
--- NOTE | 2021-12-13 21:50 | NUR ---
SEEN BY HOSPITALIST AT ER. WITH ORDERS TO PUT PATIENT MANSI STATUS
[2021-12-13] MEDS ORDERED: MAGNESIUM HYDROXIDE 30 ML UDC PO PRN ×2 (22:00→23:00)
[2021-12-13] MEDS ORDERED: MAG HYDROX/AL HYDROX/SIMETH 30 ML UDC PO PRN ×2 (22:00→23:00)
[2021-12-13] MEDS ORDERED: Z GUARD REMEDY 4 OZ OINT TP PRN (22:00)
[2021-12-13] MEDS ORDERED: ONDANSETRON HCL/PF 4 MG/2 ML VIAL IVP PRN (22:00)
[2021-12-13] MEDS ORDERED: ENOXAPARIN SODIUM 40 MG/0.4 ML DISP.SYRIN SQ SCH (22:00)
[2021-12-13] MEDS ORDERED: FUROSEMIDE 40 MG/4 ML VIAL IV ONE (22:00)
--- NOTE | 2021-12-13 22:00 | NUR ---
PATIENT IS FOR ICU ADMISSION. WAITING FOR ROOM AVAILABILITY. PATIENT IS ALERT WITH BOUTS OF CONFUSION. SLEEPING, AROUSABLE, WITH ONGOING OXYGEN INH VIA FACEMASK AT 10LPM SATURATING 94%. WILL CONTINUE TO MONITOR PATIENT.
[2021-12-13] MEDS ORDERED: MAG HYDROX/AL HYDROX/SIMETH 30 ML UDC ONE (22:23)
[2021-12-13] MEDS ORDERED: ACETAMINOPHEN 325 MG TABLET ONE (22:24)
[2021-12-13] MEDS ORDERED: ALBUTEROL FS 2.5 MG/0.5 ML VIAL.NEB NEB SCH (22:30)
[2021-12-13] MEDS ORDERED: IPRATROPIUM NEB FS 0.5 MG/2.5 ML AMPUL.NEB NEB SCH (22:30)
--- NOTE | 2021-12-13 22:37 | NUR ---
PATIENT COMPLAINING OF ACID REFLUX AND PAIN. MAALOX AND TYLENOL PO GIVEN
[2021-12-13] MEDS: ACETAMINOPHEN 325 MG TABLET PO PRN (22:39)
--- NOTE | 2021-12-13 22:41 | NUR ---
ICU 256
[2021-12-13] MEDS ORDERED: ACETAMINOPHEN 325 MG TABLET PO PRN (23:00)
[2021-12-13] MEDS ORDERED: hydrALAZINE HCL 25 MG TABLET PO PRN (23:00)
[2021-12-13] MEDS ORDERED: CYCLOBENZAPRINE 10 MG TABLET PO PRN (23:00)
--- NOTE | 2021-12-13 23:00 | NUR ---
ENDORSED PATIENT TO MALLORIE SALDAÑA
--- NOTE | 2021-12-13 23:10 | NUR ---
WHEELED PATIENT TO ICU VIA STRETCHER, ATTACHED TO SALES AGENT FIRE INSURANCE WITH CONTINUOUS OXYGENATION VIA FACE MASK AT 10LPM. PATIENT TOLERATING THE TRANSPORT.
[2021-12-13 23:11] VITALS: BP 160/106
[2021-12-13] MEDS: ENOXAPARIN SODIUM 40 MG/0.4 ML DISP.SYRIN SQ SCH (23:25)
[2021-12-13 23:30] VITALS: BP 141/91
[2021-12-13] MEDS: IPRATROPIUM NEB FS 0.5 MG/2.5 ML AMPUL.NEB NEB SCH (23:54)
[2021-12-13] MEDS: ALBUTEROL FS 2.5 MG/0.5 ML VIAL.NEB NEB SCH (23:54)
[2021-12-14] VITALS (16 sets, daily range): BP systolic 127–140; BP diastolic 72–86
[2021-12-14] MEDS ORDERED: IPRATROPIUM NEB FS 0.5 MG/2.5 ML AMPUL.NEB NEB SCH
[2021-12-14] MEDS ORDERED: ALBUTEROL FS 2.5 MG/0.5 ML VIAL.NEB NEB SCH
[2021-12-14] MEDS: IPRATROPIUM NEB FS 0.5 MG/2.5 ML AMPUL.NEB NEB SCH ×7 (02:58→23:40)
[2021-12-14] MEDS: ALBUTEROL FS 2.5 MG/0.5 ML VIAL.NEB NEB SCH ×7 (02:58→23:40)
[2021-12-14 05:07] LABS: BILIRUBIN,URINE NEGATIVE (NEGATIVE); COLOR,URINE YELLOW (YELLOW); LEUKOCYTE ESTERASE ,URINE NEGATIVE (NEGATIVE); NITRITE, URINE NEGATIVE (NEGATIVE); PROTEIN,URINE NEGATIVE (NEGATIVE); UGLUCOSE NEGATIVE (NEGATIVE); UROBILINOGEN,URINE 0.2 EU/dL (0.2)
[2021-12-14 05:25] LABS: BASOPHILS % (AUTO) 0.3 % (0.0-2.0); HEMATOCRIT 44 % (39-51); HEMOGLOBIN 14.9 g/dL (13.5-17.5); LYMPHOCYTES # (AUTO) 0.4 K/uL (0.8-4.8); LYMPHOCYTES % (AUTO) 9.1 % (20.0-44.0); MEAN CORPUSCULAR HGB CONC 34 g/dl (31.0-36.0); MEAN CORPUSCULAR VOLUME 95 fL (80-96); MONOCYTES # (AUTO) 0.1 K/uL (0.1-1.30); NEUTROPHILS % (AUTO) 88.6 % (43.0-81.0); PLATELET COUNT (AUTO) 259 K/uL (150-450); RED BLOOD CELL COUNT(AUTO) 4.64 MIL/uL (4.5-6.0); WHITE BLOOD COUNT (AUTO) 4.5 K/uL (4.3-11.0)
[2021-12-14 05:25] LABS: BACTERIA,URINE None seen /HPF (None Seen); SQUAMOUS EPITHELIAL CELL,UR Few /HPF (None Seen); WBC,URINE 0-2 /HPF (0-3)
[2021-12-14 05:46] LABS: CALCIUM, SERUM 8.8 mg/dL (8.5-10.1); MAGNESIUM 1.9 mg/dL (1.8-2.4); POTASSIUM 4.1 mmol/L (3.5-5.1)
[2021-12-14 06:20] LABS: THYROID STIMULATING HORMONE 15.089 uIU/mL (0.358-3.74)
--- NOTE | 2021-12-14 07:30 | NUR ---
INSOLE ROUNDER OPENING NOTES Patient is alert and oriented x2 with episodes of forgetfulness. Patient is on 5 liters nc with 02 of 90%. HOB kept elevated .Right ac peripheral iv, flushed well. Patient will be monitored. Call light with in reach. Bed is in lowest and locked position.
[2021-12-14] MEDS: LACTOBACILLUS RHAMNOSUS GG 1 EACH CAP.SPRINK PO SCH (09:18)
[2021-12-14] MEDS: MAGNESIUM OXIDE 400 MG TABLET PO SCH ×2 (09:18→16:46)
[2021-12-14] MEDS: GABAPENTIN 300 MG CAPSULE PO SCH ×4 (09:18→21:12)
[2021-12-14] MEDS: methylPREDNISolone SOD SUCC 40 MG/ML VIAL IV SCH ×2 (09:18→16:46)
[2021-12-14] MEDS: ASPIRIN 81 MG TAB.CHEW PO SCH (09:18)
[2021-12-14] MEDS: PANTOPRAZOLE 40 MG VIAL IV SCH (09:18)
[2021-12-14] MEDS: FAMOTIDINE (20 MG) 20 MG TABLET PO SCH ×2 (09:19→16:47)
[2021-12-14] MEDS: LEVOTHYROXINE SODIUM 75 MCG TABLET PO SCH (09:33)
--- NOTE | 2021-12-14 10:00 | NUR ---
Nursing swallow eval done and patient passed. Orders for diet submitted per MD Morales.
--- NOTE | 2021-12-14 11:09 | NUR ---
Patient noted with agitation and spoke to MD about patient's chart and his psych meds at SNF. Per MD TO continue Cymbalta, seroquel, Depakote as previously ordered. Orders noted and carried out.
[2021-12-14] MEDS: DULOXETINE HCL 30 MG CAPSULE.DR PO SCH (11:22)
[2021-12-14] MEDS: DIVALPROEX SODIUM 125 MG CAP.SPRINK PO SCH ×2 (11:22→16:46)
--- NOTE | 2021-12-14 12:59 | NUR ---
Patient transferred to [facility] in good stable condition. Report given to MALLORIE Rhoades, endorsement done regarding monitoring for safety and fall. Patient transferred with ACLS.
[2021-12-14] MEDS ORDERED: QUETIAPINE FUMARATE 100 MG TABLET PO SCH (13:00)
--- NOTE | 2021-12-14 13:00 | NUR ---
CORPORATE COORDINATOR OPENING NOTE RECEIVED PATIENT FROM ICU IN STABLE CONDITION. PATIENT IS A/OX3. PATIENT BREATHING EVEN AND UNLABORED WITH NO SIGN OF DISTRESS OR SOB. PATIENT IS ON NC 5LPM WITH O2SAT OF 97%. PATIENT HAS R AC 20G IV PATENT AND INTACT WITH NO FLUIDS RUNNING. PATIENT HAS PIERRE CATH DRAINING CLEAR YELLOW URINE PATENT AND INTACT. PATIENT HAS V/S OF 144/87 HR85 RR18 TEMP 98.5. ALL NEEDS MET AT THIS TIME. ALL SAFETY MEASURES NOTED AND ACCOUNTED FOR. BED IN LOWEST POSITION WHEELS LOCKED IN PLACE AND CALL LIGHT WITHIN REACH. WILL CONTINUE TO MONITOR. Addendum: 12/14/21 at 1521 by CECILIA GODINEZ RN RECEIVED REPORT FROM Robert HARRINGTON RN
[2021-12-14] MEDS: MEROPENEM 1 G in IV NS 0.9% 100 ML IV SCH ×2 (13:32→21:01)
[2021-12-14] MEDS: ACETAMINOPHEN 325 MG TABLET PO PRN (18:25)
--- NOTE | 2021-12-14 18:37 | NUR ---
RN CLOSING NOTE PATIENT REMAINED STABLE THROUGHOUT SHIFT. PATIENT IS A/OX2-3 WITH BOUTS OF CONFUSION RELATED TO MEDICAL HX OF DEMENTIA. PATIENT BREATHING EVEN AND UNLABORED WITH NO SIGN OF DISTRESS OR SOB. PATIENT IS ON NC 5LPM WITH O2SAT OF 97%. PATIENT HAS R AC 20G IV PATENT AND INTACT WITH NO FLUIDS RUNNING. PATIENT HAS PIERRE CATH DRAINING CLEAR YELLOW URINE PATENT AND INTACT. ALL NEEDS MET AT THIS TIME AND MEDS ADMINISTERED ORDERED. ALL SAFETY MEASURES NOTED AND ACCOUNTED FOR. BED IN LOWEST POSITION WHEELS LOCKED IN PLACE AND CALL LIGHT WITHIN REACH. WILL ENDORSE TO MAINTENANCE MECHANIC TELEPHONE RN.
[2021-12-14] MEDS ORDERED: LEVOFLOXACIN 500 MG /D5W 100ML 500 MG in PREMIX 1 EA IV SCH (19:00)
--- NOTE | 2021-12-14 19:35 | NUR ---
RN NOTES RECEIVED PATIENT AWAKE ON BED, A/OX2-3, SR ON TELE MONITOR , F/C DRAINING TEA COLORED URINE, DENIES PAIN, NO SOB, CALL LIGHT WITHIN REACH, SIDERAILSUPX2, WILL CONTINUE TO MONITOR
--- NOTE | 2021-12-14 20:40 | NUR ---
RN NOTES PATIENT WAS MOVED NEAR THE NURSES STATION
[2021-12-14] MEDS: ENOXAPARIN SODIUM 40 MG/0.4 ML DISP.SYRIN SQ SCH (21:11)
[2021-12-14] MEDS: QUETIAPINE FUMARATE 100 MG TABLET PO SCH (21:11)
[2021-12-14] MEDS: ATORVASTATIN 10 MG TABLET PO SCH (21:12)
[2021-12-15] VITALS: BP 135/87
[2021-12-15] MEDS: IPRATROPIUM NEB FS 0.5 MG/2.5 ML AMPUL.NEB NEB SCH ×6 (03:27→23:50)
[2021-12-15] MEDS: ALBUTEROL FS 2.5 MG/0.5 ML VIAL.NEB NEB SCH ×6 (03:28→23:50)
[2021-12-15 04:00] VITALS: BP 117/75
[2021-12-15] MEDS: MEROPENEM 1 G in IV NS 0.9% 100 ML IV SCH ×3 (05:19→22:45)
--- NOTE | 2021-12-15 06:36 | NUR ---
RN NOTES SLEEPING BUT AROUSABLE, MORNING CARE RENDERED, CALL LIGHT WITHIN REACH, PHILLIPAILSUPX2, PT. NEEDS ATTENDED
--- NOTE | 2021-12-15 07:26 | NUR ---
HEALTH INFORMATION DIRECTOR OPENING NOTE Patient in bed, asleep. A/O x 2-3. On O2 at 2 LPM, breathing evenly and unlabored. No SOB or s/s of distress noted. IV access on RAC #20G SL, intact and patent. Mccormick catheter in place draining to an franklin colored urine. On tele monitoring showing SR, HR on the 70's. Safety measures in place: bed in low, locked position; siderails up x 2; call light within reach. Will continue to monitor.
[2021-12-15 08:00] VITALS: BP 120/81
[2021-12-15] MEDS: PANTOPRAZOLE 40 MG VIAL IV SCH (09:00)
[2021-12-15] MEDS: FAMOTIDINE (20 MG) 20 MG TABLET PO SCH ×2 (09:00→16:33)
[2021-12-15] MEDS: ASPIRIN 81 MG TAB.CHEW PO SCH (09:00)
[2021-12-15] MEDS: MAGNESIUM OXIDE 400 MG TABLET PO SCH ×2 (09:00→16:33)
[2021-12-15] MEDS: methylPREDNISolone SOD SUCC 40 MG/ML VIAL IV SCH ×2 (09:00→16:33)
[2021-12-15] MEDS: DIVALPROEX SODIUM 125 MG CAP.SPRINK PO SCH ×2 (09:00→16:33)
[2021-12-15] MEDS: LEVOTHYROXINE SODIUM 75 MCG TABLET PO SCH (09:00)
[2021-12-15] MEDS: DULOXETINE HCL 30 MG CAPSULE.DR PO SCH (09:00)
[2021-12-15] MEDS: GABAPENTIN 300 MG CAPSULE PO SCH ×4 (09:01→22:45)
[2021-12-15] MEDS: LACTOBACILLUS RHAMNOSUS GG 1 EACH CAP.SPRINK PO SCH (09:01)
[2021-12-15 09:55] LABS: BASOPHILS % (AUTO) 0.1 % (0.0-2.0); HEMATOCRIT 43 % (39-51); HEMOGLOBIN 14.6 g/dL (13.5-17.5); LYMPHOCYTES # (AUTO) 1.8 K/uL (0.8-4.8); LYMPHOCYTES % (AUTO) 18.4 % (20.0-44.0); MEAN CORPUSCULAR HGB CONC 34 g/dl (31.0-36.0); MEAN CORPUSCULAR VOLUME 94 fL (80-96); MONOCYTES # (AUTO) 1.4 K/uL (0.1-1.30); NEUTROPHILS # (AUTO) 6.6 K/uL (1.8-8.9); NEUTROPHILS % (AUTO) 67.5 % (43.0-81.0); PLATELET COUNT (AUTO) 261 K/uL (150-450); RED BLOOD CELL COUNT(AUTO) 4.57 MIL/uL (4.5-6.0); WHITE BLOOD COUNT (AUTO) 9.8 K/uL (4.3-11.0)
[2021-12-15 10:29] LABS: CALCIUM, SERUM 8.8 mg/dL (8.5-10.1); CREATININE 1.1 mg/dL (0.6-1.3); MAGNESIUM 2.1 mg/dL (1.8-2.4); PHOSPHORUS 2.9 mg/dL (2.5-4.9); POTASSIUM 3.9 mmol/L (3.5-5.1)
[2021-12-15 10:33] LABS: URIC ACID 4.5 mg/dL (2.6-7.2)
--- NOTE | 2021-12-15 10:58 | NUR ---
RN NOTE Patient pulled out IV access on RAC. New IV access inserted on RFA #22 G; intact, patent, and flushes well.
[2021-12-15 12:00] VITALS: BP 140/83
[2021-12-15 16:00] VITALS: BP 148/87
--- NOTE | 2021-12-15 18:54 | NUR ---
LIVING SUPERVISOR OPENING NOTE Patient in bed, resting comfortably. A/O x 2-3, able to make needs known. On O2 at 2 LPM, breathing evenly and unlabored. No SOB or s/s of distress noted. IV access on RFA #22G SL, intact and patent. Mccormick catheter in place draining to an franklin colored urine. Due meds given. All needs attended to. On tele monitoring showing SR, HR on the 80's. Safety measures maintained: bed in low, locked position; siderails up x 2; call light within reach. Will endorse to shift production associate nurse for JORDY.
[2021-12-15 20:00] VITALS: BP 139/92
[2021-12-15] MEDS: ENOXAPARIN SODIUM 40 MG/0.4 ML DISP.SYRIN SQ SCH ×2 (22:00→22:48)
[2021-12-15] MEDS: QUETIAPINE FUMARATE 100 MG TABLET PO SCH (22:45)
[2021-12-15] MEDS: ATORVASTATIN 10 MG TABLET PO SCH (22:45)
--- NOTE | 2021-12-15 23:45 | NUR ---
RN NOTE DAYANA MCCANN MOTOR VEHICLE INSPECTOR, AT BEDSIDE INFORMED OF HEMATURIA. AND SCHEDULED FOR LOVENOX 40 MG, ORDER TO HOLD LOVENOX
[2021-12-16] VITALS: BP 140/89
[2021-12-16] MEDS: IPRATROPIUM NEB FS 0.5 MG/2.5 ML AMPUL.NEB NEB SCH ×6 (03:30→23:34)
[2021-12-16] MEDS: ALBUTEROL FS 2.5 MG/0.5 ML VIAL.NEB NEB SCH ×6 (03:30→23:33)
[2021-12-16 04:00] VITALS: BP 103/60
[2021-12-16] MEDS: MEROPENEM 1 G in IV NS 0.9% 100 ML IV SCH ×3 (04:53→21:26)
--- NOTE | 2021-12-16 06:45 | NUR ---
RN NOTE PATIENT RESTING IN BED. A/OX2-3. OXYGEN 4L VIA NASAL CANNULA. SPO2 90%, RESPIRATIONS ARE EVEN AND UNLABORED. NO S/S SOB NOTED. NO C/O PAIN THROUGHOUT SHIFT. PATIENT WAS PLACED ON BIPAP BUT SHORTLY AFTER REQUEST TO REMOVE (ABOUT 30 MINS - 1 HOUR). SINUS RHYTHM ON THE MONITOR. RFA#22 PATENT AND MAINTAINED. PIERRE CATHETER DRAINING TO GRAVITY, URINE IS HEMATURIA, LAURIE [employer]NA[employer] NOTIFIED LOVENOX WAS HELD. PATIENT IS VERY ANXIOUS AND CONCERN FOR PIERRE, PROVIDED EDUCATION, NEEDS REEDUCATION. FLUIDS HAVE BEEN RESTRICTED D/T PATIENT LOW NA LEVEL.
[2021-12-16 06:49] LABS: HEMATOCRIT 42 % (39-51); HEMOGLOBIN 14.3 g/dL (13.5-17.5); LYMPHOCYTES # (AUTO) 1.2 K/uL (0.8-4.8); LYMPHOCYTES % (AUTO) 13.1 % (20.0-44.0); MEAN CORPUSCULAR HGB CONC 34 g/dl (31.0-36.0); MEAN CORPUSCULAR VOLUME 94 fL (80-96); MONOCYTES # (AUTO) 1.2 K/uL (0.1-1.30); MONOCYTES % (AUTO) 13.7 % (2.0-12.0); NEUTROPHILS # (AUTO) 6.7 K/uL (1.8-8.9); NEUTROPHILS % (AUTO) 73.2 % (43.0-81.0); PLATELET COUNT (AUTO) 250 K/uL (150-450); RED BLOOD CELL COUNT(AUTO) 4.47 MIL/uL (4.5-6.0); WHITE BLOOD COUNT (AUTO) 9.1 K/uL (4.3-11.0)
[2021-12-16 07:20] LABS: CALCIUM, SERUM 8.5 mg/dL (8.5-10.1); POTASSIUM 4.1 mmol/L (3.5-5.1)
[2021-12-16 08:00] VITALS: BP 139/90
[2021-12-16] MEDS: PANTOPRAZOLE 40 MG TABLET.DR PO SCH (08:12)
[2021-12-16] MEDS: methylPREDNISolone SOD SUCC 40 MG/ML VIAL IV SCH (08:12)
[2021-12-16] MEDS: MAGNESIUM OXIDE 400 MG TABLET PO SCH ×2 (08:12→16:45)
[2021-12-16] MEDS: FAMOTIDINE (20 MG) 20 MG TABLET PO SCH ×2 (08:12→16:45)
[2021-12-16] MEDS: DIVALPROEX SODIUM 125 MG CAP.SPRINK PO SCH ×2 (08:12→16:45)
[2021-12-16] MEDS: LACTOBACILLUS RHAMNOSUS GG 1 EACH CAP.SPRINK PO SCH (08:12)
[2021-12-16] MEDS: LEVOTHYROXINE SODIUM 75 MCG TABLET PO SCH (08:13)
[2021-12-16] MEDS: DULOXETINE HCL 30 MG CAPSULE.DR PO SCH (08:13)
[2021-12-16] MEDS: GABAPENTIN 300 MG CAPSULE PO SCH ×4 (08:13→21:26)
[2021-12-16] MEDS: ASPIRIN 81 MG TAB.CHEW PO SCH (08:13)
[2021-12-16 09:04] LABS: ABG PH 7.415 (7.350-7.450); ABG PO2 65.4 mmHg (75.0-100.0); COHb 0.3 % (0.5-1.5); MetHb 0.2 % (0.0-1.5); O2Hb 91.8 % (94.0-97.0); SITE, ABG Left Radial; VENT MODE, BG 36% NC
[2021-12-16 12:00] VITALS: BP 135/90
[2021-12-16 16:00] VITALS: BP 121/78
--- NOTE | 2021-12-16 19:35 | NUR ---
RN OPENING NOTES RECEIVED PATIENT IN BED RESTING. AWAKE, A/O X2-3 AND VERBALLY RESPONSIVE. ON O2 4L/MIN VIA N/C. HE ALSO HAVE A ORDER FOR NOCTURNAL BIPAP. PT TOLERATED WELL. NO SOB NOTED. BREATHING EVEN AND UNLABORED. IV ACCESS ON RFA#22G INTACT AND PATENT. NO S/S OF INFILTRATIONS. NO C/O PAIN OR DISCOMFORT. NO ACUTE DISTRESS. PIERRE CATHETER INTACT AND PATENT, DRAINING TEA COLOR URINE. NO HEMATURIA NOTED. NO SEDIMENT, PT ON FLUID RESTRICTION D/T LOW NA LEVEL. ALL SAFETY MEASURES IN PLACE. BED ALARM ON. SIDE RAILS UP X2, BED IN LOW POSITION AND LOCKED. PLACE CALL LIGHT WITH IN REACH. WILL CONTINUE TO MONITOR
--- NOTE | 2021-12-16 19:40 | NUR ---
RN NOTE PATIENT RESTING IN BED. A/OX2-3. NOT IN DISTRESS. OXYGEN 4L VIA NASAL CANNULA. SPO2 93%, NO S/S SOB NOTED. NO C/O PAIN. ON SINUS RHYTHM. RFA#22 PATENT. PIERRE CATHETER DRAINING TO WELL, NO URINE HEMATURIA NOTED THIS SHIFT,PT ON FREE FLUIDS RESTRICTIONS. DUE MEDS GIVEN. AM CARE DONE. ALL NEEDS ATTENDED.
[2021-12-16 20:00] VITALS: BP 124/67
[2021-12-16] MEDS: ATORVASTATIN 10 MG TABLET PO SCH (21:27)
[2021-12-16] MEDS: QUETIAPINE FUMARATE 100 MG TABLET PO SCH (21:27)
[2021-12-16] MEDS: ENOXAPARIN SODIUM 40 MG/0.4 ML DISP.SYRIN SQ SCH (21:28)
--- NOTE | 2021-12-16 21:30 | NUR ---
RN OPENING NOTES RECEIVED PATIENT IN BED RESTING. AWAKE, A/O X2-3 AND VERBALLY RESPONSIVE. ON O2 4L/MIN VIA N/C. HE ALSO HAVE A ORDER FOR NOCTURNAL BIPAP. PT TOLERATED WELL. NO SOB NOTED. BREATHING EVEN AND UNLABORED. IV ACCESS ON RFA#22G INTACT AND PATENT. NO S/S OF INFILTRATIONS. NO C/O PAIN OR DISCOMFORT. NO ACUTE DISTRESS. PIERRE CATHETER INTACT AND PATENT, DRAINING TEA COLOR URINE. NO HEMATURIA NOTED. NO SEDIMENT, PT ON FLUID RESTRICTION D/T LOW NA LEVEL. ALL SAFETY MEASURES IN PLACE. BED ALARM ON. SIDE RAILS UP X2, BED IN LOW POSITION AND LOCKED. PLACE CALL LIGHT WITH IN REACH. WILL CONTINUE TO MONITOR Addendum: 12/17/21 at 0046 by SUSANA SANTOS RN WRONG CHART
[2021-12-17] VITALS: BP 126/80
[2021-12-17] MEDS ORDERED: DIPHENHYDRAMINE HCL 12.5 MG/5 ML UDC PO ONE
[2021-12-17] MEDS ORDERED: diphenhydrAMINE HCL ELIX 25 MG/10 ML UDC ONE (00:18)
--- NOTE | 2021-12-17 00:40 | NUR ---
RN NOTES: PT C/O UNABLE TO SLEEP. NOTIFIED DR. ANNE. PT ALREADY HAD SEROQUEL 300 MG TABS AT 10PM. ORDER- BENADRYL 25MG/10ML ONCE FOR UNABLE TO SLEEP. BENADRYL GIVEN AND PT TOLERATED WELL. WILL CONTINUE TO MONITOR
[2021-12-17] MEDS: ALBUTEROL FS 2.5 MG/0.5 ML VIAL.NEB NEB SCH ×6 (02:57→23:29)
[2021-12-17] MEDS: IPRATROPIUM NEB FS 0.5 MG/2.5 ML AMPUL.NEB NEB SCH ×6 (02:57→23:29)
[2021-12-17 04:00] VITALS: BP 108/72
[2021-12-17] MEDS: MEROPENEM 1 G in IV NS 0.9% 100 ML IV SCH ×3 (04:36→20:27)
[2021-12-17 05:52] LABS: BASOPHILS % (AUTO) 0.2 % (0.0-2.0); EOSINOPHILS % (AUTO) 0.2 % (0.0-6.0); HEMATOCRIT 45 % (39-51); HEMOGLOBIN 15.2 g/dL (13.5-17.5); LYMPHOCYTES # (AUTO) 2.5 K/uL (0.8-4.8); LYMPHOCYTES % (AUTO) 30.3 % (20.0-44.0); MEAN CORPUSCULAR HGB CONC 34 g/dl (31.0-36.0); MEAN CORPUSCULAR VOLUME 94 fL (80-96); MONOCYTES # (AUTO) 1.2 K/uL (0.1-1.30); MONOCYTES % (AUTO) 13.9 % (2.0-12.0); NEUTROPHILS # (AUTO) 4.6 K/uL (1.8-8.9); NEUTROPHILS % (AUTO) 55.4 % (43.0-81.0); PLATELET COUNT (AUTO) 253 K/uL (150-450); RED BLOOD CELL COUNT(AUTO) 4.81 MIL/uL (4.5-6.0); WHITE BLOOD COUNT (AUTO) 8.3 K/uL (4.3-11.0)
--- NOTE | 2021-12-17 06:36 | NUR ---
RN CLOSING NOTES PATIENT IN BED RESTING. AWAKE, A/O X2-3 AND VERBALLY RESPONSIVE. PT IS ON BIPAP AT THIS MOMENT, O2 SAT 92%. PT TOLERATED WELL. NO SOB NOTED. BREATHING EVEN AND UNLABORED. IV ACCESS ON RFA#22G INTACT AND PATENT. NO S/S OF INFILTRATIONS. NO C/O PAIN OR DISCOMFORT. NO ACUTE DISTRESS. PIERRE CATHETER INTACT AND PATENT, NOTED SCANT AMOUNT OF HEMATURIA WITH SEDIMENTS. ON FLUID RESTRICTION D/T LOW NA LEVEL. ALL DUE MEDS GIVEN ORDERED. ALL SAFETY MEASURES IN PLACE. BED ALARM ON. SIDE RAILS UP X2, BED IN LOW POSITION AND LOCKED. PLACE CALL LIGHT WITH IN REACH. WILL ENDORSE TO MORNING SHIFT NURSE.
--- NOTE | 2021-12-17 07:30 | NUR ---
[facility] CARE AM NOTES RECEIVED PATIENT IN BED RESTING. AWAKE, A/O X2-3, ABLE TO MAKE THINGS KNOWN, ON O2 4L/MIN VIA N/C. NOT I ANY DISTRESS, DENIES SOB, RESPIRATION UNLABORED. ALSO ON NOCTURNAL BIPAP. SR HR 78 ON MONITOR. DENIES CHEST PAIN OR ANY DISCOMFORT. IV ACCESS ON RFA#22G FLUSHES WELL, SITE CLEAR. PIERRE CATHETER INTACT AND PATENT, DRAINING BLOOD TINGED URINE. PER CHIEF OPERATING OFFICER MD AWARE. PT ON FLUID RESTRICTION D/T LOW NA LEVEL. POC DISCUSSED. VERBALIZED UNDERSTANDING. ALL SAFETY MEASURES IN PLACE. BED ALARM ON. SIDE RAILS UP X2, BED IN LOW POSITION AND LOCKED. PLACE CALL LIGHT WITH IN REACH. WILL CONTINUE TO MONITOR
[2021-12-17 07:46] LABS: CALCIUM, SERUM 8.7 mg/dL (8.5-10.1); CREATININE 0.8 mg/dL (0.6-1.3)
[2021-12-17 08:00] VITALS: BP 112/69
[2021-12-17] MEDS: ASPIRIN 81 MG TAB.CHEW PO SCH (08:11)
[2021-12-17] MEDS: DIVALPROEX SODIUM 125 MG CAP.SPRINK PO SCH ×2 (08:11→16:42)
[2021-12-17] MEDS: MAGNESIUM OXIDE 400 MG TABLET PO SCH ×2 (08:11→16:42)
[2021-12-17] MEDS: LACTOBACILLUS RHAMNOSUS GG 1 EACH CAP.SPRINK PO SCH (08:15)
[2021-12-17] MEDS: DULOXETINE HCL 30 MG CAPSULE.DR PO SCH (08:15)
[2021-12-17] MEDS: PANTOPRAZOLE 40 MG TABLET.DR PO SCH (08:15)
[2021-12-17] MEDS: GABAPENTIN 300 MG CAPSULE PO SCH ×4 (08:16→20:28)
[2021-12-17] MEDS: LEVOTHYROXINE SODIUM 125 MCG TABLET PO SCH (08:16)
[2021-12-17] MEDS: FAMOTIDINE (20 MG) 20 MG TABLET PO SCH ×2 (08:16→16:42)
[2021-12-17] MEDS: methylPREDNISolone SOD SUCC 40 MG/ML VIAL IV SCH (08:16)
--- NOTE | 2021-12-17 08:24 | NUR ---
PLACED INTO NASAL CANNULA @ 2 LPM O2 FLOW. PT. IS AWAKE AND ALERT WITH 94% SPO2. NO INCREASED WORK OF BREATHING NOTED. Addendum: 12/17/21 at 0827 by ALIREZA LEON RT Amended: Links added.
--- NOTE | 2021-12-17 09:30 | NUR ---
RN NOTES DUE MEDS GIVEN
[2021-12-17 12:00] VITALS: BP 121/82
[2021-12-17 16:00] VITALS: BP 100/66
--- NOTE | 2021-12-17 18:32 | NUR ---
OUTSIDE SALES CLOSING NOTES PATIENT IN BED RESTING. AWAKE, A/O X2-3, ABLE TO MAKE THINGS KNOWN, ON O2 4L/MIN VIA N/C. NOT IN ANY DISTRESS, DENIES SOB, RESPIRATION UNLABORED. ALSO ON NOCTURNAL BIPAP. SR HR 78 - 80s ON MONITOR. DENIES CHEST PAIN OR ANY DISCOMFORT. IV ACCESS ON RFA#22G FLUSHES WELL, SITE CLEAR. PIERRE CATHETER INTACT AND PATENT, WITH 500 ML OUTPUT. PT ON FLUID RESTRICTION D/T LOW NA LEVEL. ALL SAFETY MEASURES IN PLACE. BED ALARM ON. SIDE RAILS UP X2, BED IN LOW POSITION AND LOCKED. PLACE CALL LIGHT WITH IN REACH. PM CARE DONE EARLIER. ALL NEEDS MET AT THIS TIME. NO OTHER SIGNIFICANT CHANGE IN CONDITION. WILL ENDORSE TO NEXT SHIFT FOR JORDY
[2021-12-17 20:00] VITALS: BP 112/72
[2021-12-17] MEDS: QUETIAPINE FUMARATE 100 MG TABLET PO SCH (21:33)
[2021-12-17] MEDS: ATORVASTATIN 10 MG TABLET PO SCH (21:34)
[2021-12-17] MEDS: ENOXAPARIN SODIUM 40 MG/0.4 ML DISP.SYRIN SQ SCH (21:35)
[2021-12-18] VITALS: BP 101/66
[2021-12-18] MEDS: ALBUTEROL FS 2.5 MG/0.5 ML VIAL.NEB NEB SCH ×3 (03:34→11:18)
[2021-12-18] MEDS: IPRATROPIUM NEB FS 0.5 MG/2.5 ML AMPUL.NEB NEB SCH ×3 (03:34→11:18)
[2021-12-18 04:00] VITALS: BP 115/65
[2021-12-18] MEDS: MEROPENEM 1 G in IV NS 0.9% 100 ML IV SCH ×2 (06:01→12:03)
[2021-12-18 06:24] LABS: BASOPHILS % (AUTO) 0.1 % (0.0-2.0); EOSINOPHILS % (AUTO) 0.2 % (0.0-6.0); HEMATOCRIT 42 % (39-51); HEMOGLOBIN 14.2 g/dL (13.5-17.5); LYMPHOCYTES # (AUTO) 1.8 K/uL (0.8-4.8); LYMPHOCYTES % (AUTO) 24.3 % (20.0-44.0); MEAN CORPUSCULAR HGB CONC 34 g/dl (31.0-36.0); MEAN CORPUSCULAR VOLUME 94 fL (80-96); NEUTROPHILS # (AUTO) 4.5 K/uL (1.8-8.9); NEUTROPHILS % (AUTO) 61.4 % (43.0-81.0); PLATELET COUNT (AUTO) 239 K/uL (150-450); RED BLOOD CELL COUNT(AUTO) 4.44 MIL/uL (4.5-6.0); WHITE BLOOD COUNT (AUTO) 7.4 K/uL (4.3-11.0)
[2021-12-18 06:41] LABS: CALCIUM, SERUM 8.8 mg/dL (8.5-10.1); CREATININE 0.9 mg/dL (0.6-1.3); POTASSIUM 4.3 mmol/L (3.5-5.1)
--- NOTE | 2021-12-18 06:41 | NUR ---
RN CLOSING NOTES PATIENT IN BED RESTING. AWAKE, A/O X2-3, WITH EPISODES OF CONFUSION AND BIPOLAR DO, AGGRESSIVE BEHAVIOR, NOTED, PATIENT ON SEROQUEL AT NIGHT, ON NOCTURNAL BIPAP FOR FEW HOURS, REFUSED TO STAY ALL NIGHT ON BIPAP, CONT ON 5LPM VIA NC, WITH OPTIMAL O2 STA LEVEL, NOT IN ANY DISTRESS, DENIES SOB, RESPIRATION UNLABORED, PIERRE CATHETER INTACT AND PATENT, ALL SAFETY MEASURES IN PLACE, BED ALARM ON, SIDE RAILS UP X2, BED IN LOW POSITION AND LOCKED, CALL LIGHT WITH IN REACH, KEPT DRY AND CLEAN, OTHERWISE NO SIGNIFICANT CHANGE IN CONDITION DURING THE NIGHT, WILL ENDORSE JORDY TO ONCOMING NURSE.
[2021-12-18] MEDS: LEVOTHYROXINE SODIUM 125 MCG TABLET PO SCH (07:34)
[2021-12-18] MEDS: PANTOPRAZOLE 40 MG TABLET.DR PO SCH (07:34)
[2021-12-18 08:00] VITALS: BP 109/69
--- NOTE | 2021-12-18 08:16 | NUR ---
RN OPENING NOTES RECEIVED PATIENT IN BED RESTING. AWAKE, A/O X2-3 AND VERBALLY RESPONSIVE. ON O2 4L/MIN VIA N/C. NO SOB NOTED. BREATHING EVEN AND UNLABORED. IV ACCESS ON RFA#22G INTACT AND PATENT. NO S/S OF INFILTRATIONS. NO C/O PAIN OR DISCOMFORT. NO ACUTE DISTRESS. ALL SAFETY MEASURES IN PLACE. BED ALARM ON. SIDE RAILS UP X2, BED IN LOW POSITION AND LOCKED. PLACE CALL LIGHT WITH IN REACH. WILL CONTINUE TO MONITOR THROUGHOUT SHIFT.
[2021-12-18] MEDS: ASPIRIN 81 MG TAB.CHEW PO SCH (09:07)
[2021-12-18] MEDS: DULOXETINE HCL 30 MG CAPSULE.DR PO SCH (09:07)
[2021-12-18] MEDS: LACTOBACILLUS RHAMNOSUS GG 1 EACH CAP.SPRINK PO SCH (09:07)
[2021-12-18] MEDS: FAMOTIDINE (20 MG) 20 MG TABLET PO SCH (09:08)
[2021-12-18] MEDS: DIVALPROEX SODIUM 125 MG CAP.SPRINK PO SCH (09:08)
[2021-12-18] MEDS: MAGNESIUM OXIDE 400 MG TABLET PO SCH (09:08)
[2021-12-18] MEDS: methylPREDNISolone SOD SUCC 40 MG/ML VIAL IV SCH (09:08)
[2021-12-18] MEDS: GABAPENTIN 300 MG CAPSULE PO SCH ×2 (09:08→12:03)
[2021-12-18] MEDS ORDERED: LEVO125T PO (09:28)
[2021-12-18] MEDS ORDERED: Quetiapine Fumarate PO (09:28)
[2021-12-18] MEDS ORDERED: DULO30CA2 PO (09:28)
[2021-12-18] MEDS ORDERED: PRED50TA PO (09:28)
[2021-12-18 12:00] VITALS: BP 114/76
--- NOTE | 2021-12-18 15:32 | NUR ---
RN DC NOTES [facility]. DC INSTRUCTIONS GIVEN AND EXPLAINED TO PT; VERBALIZED UNDERSTANDING. ALL PAPERWORK SIGNED AND COMPLETED. ALL BELONGINGS SENT. IV ACCESS AND PIERRE CATH REMOVED. NO COMPLICATIONS NOTED. PT LEFT UNIT IN STABLE CONDITION VIA GURNEY. PT ENDORSED TO JONATAN NOBLES AT [facility]. PT ENDORSED TO AMBULANCE CREW ACCORDINGLY.
== END 2021-12-18 15:20 | DRG 291 ==
LOC: ER 17:25 → TELE1 21:32 → ICU 22:44 → TELE1 12-14 12:55
PROVIDERS: ADMIT Registered Nurse; ATTEND Internal Medicine
PROC: 5A09357 Assistance with Respiratory Ventilation, Less than 24 Consecutive Hours, Continuous Positive Airway Pressure (ICD-10-PCS; principal; 2021-12-16)
DX: I11.0 Hypertensive heart disease with heart failure (principal); I50.33 Acute on chronic diastolic (congestive) heart failure; G93.41 Metabolic encephalopathy; J96.21 Acute and chronic respiratory failure with hypoxia; J96.22 Acute and chronic respiratory failure with hypercapnia; J44.0 Chronic obstructive pulmonary disease with (acute) lower respiratory infection; J44.1 Chronic obstructive pulmonary disease with (acute) exacerbation; E22.2 Syndrome of inappropriate secretion of antidiuretic hormone; I25.10 Atherosclerotic heart disease of native coronary artery without angina pectoris; E03.9 Hypothyroidism, unspecified; F03.90 Unspecified dementia, unspecified severity, without behavioral disturbance, psychotic disturbance, mood disturbance, and anxiety; F20.9 Schizophrenia, unspecified; Z20.822 Contact with and (suspected) exposure to COVID-19; R13.10 Dysphagia, unspecified; Z87.891 Personal history of nicotine dependence; R53.1 Weakness; F32.9 Major depressive disorder, single episode, unspecified; Z79.890 Hormone replacement therapy
CPT/HCPCS: 36415; 36600; 71045-TC; 80048-TC; 80061-TC; 80076-TC; 81001; 82803-TC; 83735-TC; 83880; 84100-TC; 84295-TC; 84439-TC; 84443-TC; 84484-TC; 84550-TC; 85025-TC; 87081-TC; 93307-TC; 93970-TC; 94660; 94760-TC; 94799-TC; A4216; C9113; C9803; G0378; J1650; J1940; J1956; J2185; J2920; J2930; J3475; J7030; Q0163

== ENCOUNTER 2023-03-10 16:52 | Inpatient (IN) | payer MEDICARE, BC ==
[~2023-03-10] VITALS: Ht 162.6 cm; Wt 71.2 kg
[~2023-03-10 16:52] MED LIST changes: +ATOR20TA GT; -ATOR20TA PO; +DULO30CA2 PO; +HYDR-4076 GT; -HYDR-4076 PO; +LEVO125T PO; -LEVO75TA PO; +PRED50TA PO
--- NOTE | 2023-03-10 17:20 | NUR ---
MOVE SHEET SUBMITTED.
[2023-03-10 17:42] LABS: BASOPHILS % (AUTO) 0.3 % (0.0-2.0); EOSINOPHILS % (AUTO) 0.9 % (0.0-6.0); HEMATOCRIT 28 % (39-51); HEMOGLOBIN 9.2 g/dL (13.5-17.5); LYMPHOCYTES # (AUTO) 1.9 K/uL (0.8-4.8); LYMPHOCYTES % (AUTO) 22.5 % (20.0-44.0); MEAN CORPUSCULAR HGB CONC 33 g/dl (31.0-36.0); MEAN CORPUSCULAR VOLUME 88 fL (80-96); MONOCYTES # (AUTO) 1.1 K/uL (0.1-1.30); MONOCYTES % (AUTO) 12.9 % (2.0-12.0); NEUTROPHILS # (AUTO) 5.4 K/uL (1.8-8.9); NEUTROPHILS % (AUTO) 63.4 % (43.0-81.0); PLATELET COUNT (AUTO) 375 K/uL (150-450); WHITE BLOOD COUNT (AUTO) 8.6 K/uL (4.3-11.0)
[2023-03-10 17:50] LABS: ABG BASE EXCESS 8.9 mmol/L; ABG PCO2 44.5 mmHg (35.0-45.0); ABG PO2 102.1 mmHg (75.0-100.0); COHb 0.3 % (0.5-1.5); MetHb 0.1 % (0.0-1.5); O2Hb 97.1 % (94.0-97.0); PEEP,BG 5 cm H2O; SITE, ABG Left Radial; VT, ABG 500 mL
[2023-03-10 18:04] LABS: CARBON DIOXIDE 38 mmol/L (21-32); CHLORIDE 87 mmol/L (98-107); CREATININE 0.6 mg/dL (0.6-1.3); GLUCOSE 105 mg/dL (74-106); POTASSIUM 4.3 mmol/L (3.5-5.1); SODIUM SERUM 126 mmol/L (136-145); UREA NITROGEN, BLOOD 14 mg/dL (7-18)
[2023-03-10] MEDS ORDERED: FINA5TAB11 GT (18:05)
[2023-03-10] MEDS ORDERED: GLYC2TAB21 GT (18:05)
[2023-03-10] MEDS ORDERED: BETH50TA2 GT (18:05)
[2023-03-10] MEDS ORDERED: LIOT5TAB11 GT (18:05)
[2023-03-10] MEDS ORDERED: MULT9LIQ6 GT (18:05)
[2023-03-10] MEDS ORDERED: ALBU8.5H8 IH (18:05)
[2023-03-10] MEDS ORDERED: CLON0.5T4 GT (18:05)
[2023-03-10] MEDS ORDERED: GABA-532 GT (18:05)
[2023-03-10] MEDS ORDERED: CHLO473M5 MM (18:05)
[2023-03-10] MEDS ORDERED: ACET-2605 GT (18:05)
[2023-03-10] MEDS ORDERED: DOXA4TAB3 GT (18:05)
[2023-03-10] MEDS ORDERED: PYRI25TA4 GT (18:05)
[2023-03-10] MEDS ORDERED: DOCU50LI GT (18:05)
[2023-03-10] MEDS ORDERED: LEVO125T8 GT (18:05)
[2023-03-10] MEDS ORDERED: QUET300T2 GT (18:05)
[2023-03-10] MEDS ORDERED: OLAN5TAB3 GT (18:05)
[2023-03-10] MEDS ORDERED: THIA100T68 GT (18:05)
[2023-03-10] MEDS ORDERED: NUTR250L62 GT (18:05)
[2023-03-10] MEDS ORDERED: TRAZ-182 GT (18:05)
[2023-03-10] MEDS ORDERED: FOLI0.4T6 GT (18:05)
[2023-03-10] MEDS ORDERED: ONDA4TAB5 GT (18:05)
[2023-03-10] MEDS ORDERED: SENN-261 GT (18:05)
[2023-03-10] MEDS ORDERED: ACET650S26 GT (18:05)
[2023-03-10] MEDS ORDERED: MIRT-90 GT (18:05)
[2023-03-10] MEDS ORDERED: OMEP20CA15 GT (18:05)
[2023-03-10] MEDS ORDERED: VALP250S4 GT (18:05)
--- NOTE | 2023-03-10 18:05 | NUR ---
PATIENT CAME ON THE VENT WITH TRANSPORT CREW. PATIENT PLACED ON THE VENT WITH THE INITIAL VENT SETTINGS GIVEN BY TRANSPORT RT AC 16, 500, 40%, +5. DR. MCGINNIS ATTENDING WERE OKAY WITH VENT SETTING. PATIENT IS TRACHED WITH 8 PORTEX SIZE TRACH. PATIENT IS STABLE RESPIRATORY CAVAZOS AND WILL CONTINUE TO BE MONITOR. Addendum: 03/10/23 at 1809 by GEETHA MONTAGUE RT Amended: Links added.
--- NOTE | 2023-03-10 18:18 | NUR ---
URINE COLLECTED AND SENT TO LAB
--- NOTE | 2023-03-10 18:18 | NUR ---
SASKIA COLLECTED AND SENT TO LAB
[2023-03-10 18:24] LABS: ALANINE AMINOTRANSFERASE 15 U/L (12-78); ALBUMIN 2.1 g/dL (3.4-5.0); ALKALINE PHOSPHATASE 77 U/L (46-116); ASPARTATE AMINOTRANSFERASE 17 U/L (15-37); BILIRUBIN,DIRECT 0.1 mg/dL (0.0-0.2); BILIRUBIN,TOTAL 0.2 mg/dL (0.2-1.0); TOTAL PROTEIN, SERUM 7.5 g/dL (6.4-8.2)
--- NOTE | 2023-03-10 18:30 | NUR ---
CALLED DR. RAMOS [phone] PAGED.
--- NOTE | 2023-03-10 18:30 | NUR ---
PT COMING IN ON VENT TRACH, NO S/S OF RESPIRATORY DISTRESS.C/O: SOB AND DESATTING SENT BY DR. FERRELL FOR RESPIRATORY ASSESSMENT. A FEBRIL ON ASSESSMENT LUNG SOUNDS ARE CLEAR TO AUSCULTATION. ABG TAKEN BY RT. PLACED IN BED 6, HIGH FOWLERS BED LOCKED IN LOWEST POSTION SIDE RAILS UP. Addendum: 03/10/23 at 1832 by BRIDEGT VITALS WNL.
[2023-03-10 18:31] LABS: BILIRUBIN,URINE NEGATIVE (NEGATIVE); COLOR,URINE YELLOW (YELLOW); LEUKOCYTE ESTERASE ,URINE 3+ (NEGATIVE); NITRITE, URINE NEGATIVE (NEGATIVE); PROTEIN,URINE NEGATIVE (NEGATIVE); UGLUCOSE NEGATIVE (NEGATIVE); UROBILINOGEN,URINE 0.2 EU/dL (0.2)
--- NOTE | 2023-03-10 18:33 | NUR ---
PER DR. RAMOS, PLEASE PAGE EPIC.
[2023-03-10 18:56] LABS: BACTERIA,URINE Few /HPF (None Seen); RBC,URINE 0-2 /HPF (0-2)
[2023-03-10 18:57] LABS: SQUAMOUS EPITHELIAL CELL,UR Few /HPF (None Seen); WBC,URINE 21-50 /HPF (0-3)
[2023-03-10] MEDS ORDERED: Z GUARD REMEDY 4 OZ OINT TP PRN (20:00)
[2023-03-10] MEDS ORDERED: MAG HYDROX/AL HYDROX/SIMETH 30 ML UDC PO PRN (20:00)
[2023-03-10] MEDS ORDERED: MAGNESIUM HYDROXIDE 30 ML UDC PO PRN (20:00)
[2023-03-10] MEDS ORDERED: hydrALAZINE HCL 25 MG TABLET GT PRN (20:00)
[2023-03-10] MEDS ORDERED: JEVITY 1.2 CAL 1,000 ML BOTTLE GT PRN (20:00)
[2023-03-10] MEDS ORDERED: ONDANSETRON 4 MG TAB.RAPDIS GT PRN (20:00)
[2023-03-10] MEDS ORDERED: ONDANSETRON HCL/PF 4 MG/2 ML VIAL IVP PRN (20:00)
--- NOTE | 2023-03-10 20:02 | NUR ---
ASSIGNED 107
--- NOTE | 2023-03-10 20:17 | NUR ---
HANDOFF REPORT GIVEN TO [facility]
--- NOTE | 2023-03-10 20:37 | NUR ---
TRANSFERRED TO 107 UNDER ACLS. ACCOMPANIED BY RT
--- NOTE | 2023-03-10 20:40 | NUR ---
OPERATING COST CLERKELECTROENCEPHALOGRAPHIC TECHNICIAN NOTES RECEIVED REPORT FROM PHOTOGRAPHIC EQUIPMENT MECHANIC MINA. PATIENT TRANSFERRED TO [facility], PLACED IN ROOM 107-1. PATIENT NON-VERBAL, A&O X2. PATIENT ON TRACH TO VENT SETTING AC 16, TV 500, FIO2 40%, PEEP 5, O2 SATURATION 99%. NSR ON THE MONITOR. IV ACCESS ON RAC 20 GAUGE, FLUSHED, INTACT AND PATENT, NO S/S OF INFILTRATION. G TUBE SITE INACT, NO S/S OF LEAKING. NO MANIFESTATIONS OF ACUTE PAIN OR DISCOMFORT. ASSESSED THE WHOLE BODY, NO OPEN SKIN, NOTED REDNESS ON THE MEDIAL BACK AND LEFT HEEL. ALL SAFETY MEASURES IMPLEMENTED, BED LOCKED IN LOWEST POSITION, SIDE RAILS X3 UP, HOB ELEVATED, BELONGINGS AND CALL LIGHT WITHIN REACH. WILL CONTINUE TO MONITOR.
[2023-03-10 20:45] VITALS: BP 145/75
[2023-03-10] MEDS: CEFTRIAXONE 1 G in IV D5W 50 ML IV SCH (21:09)
[2023-03-10] MEDS: GLYCOPYRROLATE 1 MG TABLET GT SCH (22:01)
[2023-03-10] MEDS: CHLORHEXIDINE GLUCONATE 15 ML UDC MM SCH (22:01)
[2023-03-10] MEDS: ATORVASTATIN 10 MG TABLET GT SCH (22:01)
[2023-03-10] MEDS: VALPROIC ACID 250 MG/5 ML UDC GT SCH (22:01)
[2023-03-10] MEDS: QUETIAPINE FUMARATE 100 MG TABLET GT SCH (22:01)
[2023-03-10] MEDS: SENNOSIDES 8.6 MG TABLET GT SCH (22:01)
[2023-03-10] MEDS: AZITHROMYCIN 500 MG in IV D5W 250 ML IV SCH (22:02)
[2023-03-10] MEDS: IV NS 0.9% 1,000 ML IV PRN (22:05)
[2023-03-11] VITALS: BP 121/66
[2023-03-11] MEDS: GABAPENTIN 100 MG CAPSULE GT SCH ×5 (00:35→23:44)
--- NOTE | 2023-03-11 01:28 | NUR ---
RN NOTES FOUND PATIENT TRYING TO DISCONNECT THE VENT TUBE, PATIENT WAS HOLDING THE G TUBE. NOTIFIED ENTRY LEVEL MANUFACTURING ENGINEER DANI, ORDERED SOFT WRIST BILATERAL RESTRAINTS. ORDER NOTED AND CARRIED OUT.
[2023-03-11] MEDS ORDERED: ALBUTEROL HALF STRENGTH 1.25 MG/3 ML VIAL.NEB NEB SCH (01:30)
[2023-03-11] MEDS: ALBUTEROL FS 2.5 MG/0.5 ML VIAL.NEB IH SCH ×4 (02:09→19:54)
[2023-03-11] MEDS: IPRATROPIUM NEB FS 0.5 MG/2.5 ML AMPUL.NEB NEB SCH ×4 (02:09→19:54)
--- NOTE | 2023-03-11 02:10 | NUR ---
RT NOTE ADMINISTERED ALBUTEROL 2.5 MG PER DIGITAL BUSINESS ANALYST DANI FROST.
[2023-03-11 04:00] VITALS: BP 107/60
[2023-03-11] MEDS: VALPROIC ACID 250 MG/5 ML UDC GT SCH ×3 (05:09→20:11)
[2023-03-11] MEDS: GLYCOPYRROLATE 1 MG TABLET GT SCH ×3 (05:10→20:11)
[2023-03-11 05:33] LABS: ABG BASE EXCESS 9.5 mmol/L; ABG OXYGEN SATURATION 97.5 % (92.0-98.5); ABG PCO2 50.2 mmHg (35.0-45.0); ABG PO2 94.5 mmHg (75.0-100.0); COHb 1.2 % (0.5-1.5); MetHb 0.2 % (0.0-1.5); O2Hb 96.1 % (94.0-97.0); SITE, ABG Left Radial
--- NOTE | 2023-03-11 05:50 | NUR ---
RN NOTE ABG RESULTS RECEIVED, INFORMATION PASSED TO MARCUS FROST, NO NEW ORDERS.
--- NOTE | 2023-03-11 06:33 | NUR ---
ARMORED VEHICLE OFFICER CLOSING NOTES PATIENT IS SLEEPING, BUT EASILY AROUSABLE. NON-VERBAL, A&O X2. PATIENT ON TRACH TO VENT SETTING AC 16, TV 500, FIO2 40%, PEEP 5, O2 SATURATION 96%. NSR ON THE MONITOR. IV ACCESS ON RAC 20 GAUGE, FLUSHED, INTACT AND PATENT, NO S/S OF INFILTRATION, RUNNING NS AT 75 ML/HR. G TUBE SITE INTACT, NO S/S OF LEAKING, RUNNING JEVITY 1.2 AT 40 ML/HR. PATIENT TOLERATED FEEDING WELL, RESIDUAL 10 ML. BILATERAL SOFT WRIST RESTRAINTS IN PLACE, REMOVED TO CHECK SKIN AND CIRCULATION EVERY 2 HOURS. NO MANIFESTATIONS OF ACUTE PAIN OR DISCOMFORT. ALL SAFETY MEASURES IMPLEMENTED, BED LOCKED IN LOWEST POSITION, SIDE RAILS X3 UP, HOB ELEVATED, BELONGINGS AND CALL LIGHT WITHIN REACH. WILL ENDORSE TO THE NEXT SHIFT FOR JORDY.
[2023-03-11 07:15] LABS: BASOPHILS % (AUTO) 0.4 % (0.0-2.0); EOSINOPHILS % (AUTO) 1.5 % (0.0-6.0); HEMATOCRIT 26 % (39-51); HEMOGLOBIN 8.7 g/dL (13.5-17.5); LYMPHOCYTES # (AUTO) 2.6 K/uL (0.8-4.8); LYMPHOCYTES % (AUTO) 27.5 % (20.0-44.0); MEAN CORPUSCULAR HGB CONC 33 g/dl (31.0-36.0); MEAN CORPUSCULAR VOLUME 86 fL (80-96); MONOCYTES # (AUTO) 1.3 K/uL (0.1-1.30); MONOCYTES % (AUTO) 14.3 % (2.0-12.0); NEUTROPHILS # (AUTO) 5.2 K/uL (1.8-8.9); NEUTROPHILS % (AUTO) 56.3 % (43.0-81.0); PLATELET COUNT (AUTO) 352 K/uL (150-450); RED BLOOD CELL COUNT(AUTO) 3.07 MIL/uL (4.5-6.0); WHITE BLOOD COUNT (AUTO) 9.3 K/uL (4.3-11.0)
[2023-03-11 07:24] LABS: CALCIUM, SERUM 8.9 mg/dL (8.5-10.1); CARBON DIOXIDE 36 mmol/L (21-32); CHLORIDE 89 mmol/L (98-107); CREATININE 0.5 mg/dL (0.6-1.3); GLUCOSE 101 mg/dL (74-106); MAGNESIUM 1.7 mg/dL (1.8-2.4); PHOSPHORUS 3.3 mg/dL (2.5-4.9); POTASSIUM 3.7 mmol/L (3.5-5.1); SODIUM SERUM 128 mmol/L (136-145); UREA NITROGEN, BLOOD 13 mg/dL (7-18)
[2023-03-11 08:00] VITALS: BP 106/59
--- NOTE | 2023-03-11 09:43 | NUR ---
WOUND CARE CONSULT: PT PRESENTS WITH SACRAL AND BACK SCARRING, LEFT HEEL SCARRING WITH PEELING SKIN, ALL PRESENT ON ADMISSION. PT TENDS TO RUB HEELS ON BED. NURSING STAFF TO DISCOURAGE THIS AND KEEP HEELS FLOATED ON PILLOWS. DISCUSSED SKIN PROTECTION WITH NURSING STAFF. PT IS ON IGNACIO ISOFLEX LOW AIRLOSS BED. IN AGREEMENT WITH PLAN OF CARE. Addendum: 03/11/23 at 0944 by TOM RODRIGUEZ WNDNU Amended: Links added.
[2023-03-11] MEDS: CHLORHEXIDINE GLUCONATE 15 ML UDC MM SCH ×2 (09:50→20:11)
[2023-03-11] MEDS: PANTOPRAZOLE 40 MG/PACK PACK GT SCH (09:50)
[2023-03-11] MEDS: DOCUSATE SODIUM LIQ 100 MG/10 ML UDC GT SCH ×2 (09:51→16:53)
[2023-03-11] MEDS: MULTIVITAMINS,THERAGRAN 1 UDTAB TABLET GT SCH (09:51)
[2023-03-11] MEDS: BETHANECHOL CHLORIDE (25 MG) 25 MG TABLET GT SCH ×2 (09:51→16:53)
[2023-03-11] MEDS: FINASTERIDE (5 MG) 5 MG TABLET GT SCH (09:51)
[2023-03-11] MEDS: DOXAZOSIN MESYLATE (4 MG) 4 MG TABLET GT SCH (09:51)
[2023-03-11] MEDS: FOLIC ACID 1 MG TABLET GT SCH (09:51)
[2023-03-11] MEDS: LIOTHYRONINE SODIUM (5 MCG/TA 5 MCG TABLET GT SCH (09:51)
[2023-03-11] MEDS: LEVOTHYROXINE SODIUM 125 MCG TABLET GT SCH (09:51)
[2023-03-11] MEDS: methylPREDNISolone SOD SUCC 125 MG/2ML VIAL IV SCH (09:57)
[2023-03-11] MEDS: PYRIDOXINE HCL 50 MG TABLET GT SCH (09:57)
[2023-03-11] MEDS: ENOXAPARIN SODIUM 40 MG/0.4 ML DISP.SYRIN SQ SCH (09:58)
[2023-03-11] MEDS ORDERED: MAGNESIUM OXIDE 400 MG TABLET GT ONE (10:00)
[2023-03-11] MEDS: clonazePAM 0.5 MG TABLET GT PRN (10:23)
[2023-03-11] MEDS: TWOCAL HN 1,000 ML LIQUID GT PRN (10:23)
[2023-03-11 12:00] VITALS: BP 139/71
[2023-03-11] MEDS ORDERED: SILVER NITRATE APPLICATOR 1 EA BOX TP SCH (12:30)
[2023-03-11] MEDS: IV NS 0.9% 1,000 ML IV PRN (14:45)
[2023-03-11 16:00] VITALS: BP 135/58
[2023-03-11] MEDS: THIAMINE HCL 100 MG TABLET GT SCH (18:06)
[2023-03-11] MEDS: TRAZODONE 50 MG TABLET GT SCH (18:06)
--- NOTE | 2023-03-11 19:39 | NUR ---
SEAFOOD PACKER OPENING NOTES RECEIVED PATIENT, SLEEPING, BUT EASILY AROUSABLE. NON-VERBAL, A&O X2 WITH CONFUSION. PATIENT ON TRACH TO VENT SETTING AC 16, TV 500, FIO2 40%, PEEP 5, OXYGEN SATURATION 98%. NSR ON THE MONITOR. IV ACCESS ON RAC 20 GAUGE, FLUSHED, INTACT AND PATENT, NO S/S OF INFILTRATION, RUNNING NS AT 75 ML/HR. G TUBE WELL TOLERATED, SITE INTACT, NO S/S OF LEAKING, RUNNING TWOCAL AT 45 ML/HR. BILATERAL SOFT WRIST RESTRAINTS IN PLACE. NO MANIFESTATIONS OF ACUTE PAIN OR DISCOMFORT. ALL SAFETY MEASURES IMPLEMENTED, BED LOCKED IN LOWEST POSITION, SIDE RAILS X3 UP, HOB ELEVATED, BELONGINGS AND CALL LIGHT WITHIN REACH. WILL CONTINUE TO MONITOR.
[2023-03-11 20:00] VITALS: BP 117/69
[2023-03-11] MEDS: CEFTRIAXONE 1 G in IV D5W 50 ML IV SCH (20:10)
[2023-03-11] MEDS: AZITHROMYCIN 500 MG in IV D5W 250 ML IV SCH (21:13)
[2023-03-11] MEDS: SENNOSIDES 8.6 MG TABLET GT SCH (21:13)
[2023-03-11] MEDS: QUETIAPINE FUMARATE 100 MG TABLET GT SCH (21:14)
[2023-03-11] MEDS: ATORVASTATIN 10 MG TABLET GT SCH (21:14)
[2023-03-12] VITALS: BP 127/44
[2023-03-12] MEDS: ALBUTEROL FS 2.5 MG/0.5 ML VIAL.NEB IH SCH ×4 (01:05→20:31)
[2023-03-12] MEDS: IPRATROPIUM NEB FS 0.5 MG/2.5 ML AMPUL.NEB NEB SCH ×4 (01:05→20:31)
[2023-03-12 04:00] VITALS: BP 128/65
[2023-03-12] MEDS: VALPROIC ACID 250 MG/5 ML UDC GT SCH ×3 (05:11→21:43)
[2023-03-12] MEDS: GABAPENTIN 100 MG CAPSULE GT SCH ×3 (05:12→17:16)
[2023-03-12] MEDS: GLYCOPYRROLATE 1 MG TABLET GT SCH ×3 (05:12→21:43)
[2023-03-12] MEDS: clonazePAM 0.5 MG TABLET GT PRN ×2 (05:54→14:21)
--- NOTE | 2023-03-12 05:54 | NUR ---
RN NOTES PATIENT IS AGITATED, MOVES HIS UPPER BODY, THE VENTILATOR'S TUBING GOT DISCONNECTED. RN REATTACHED THE VENTILATOR'S TUBING, ATTEMPTED TO CALM PATIENT DOWN BY TALKING TO HIM, PATIENT REMAINED AGITATED. PRN CLONAZEPAM GIVEN, CONTINUE TO MONITOR THE PATIENT.
--- NOTE | 2023-03-12 06:30 | NUR ---
PATIENT PARTNER CLOSING NOTES PATIENT AWAKE, AGITATED. NON-VERBAL, A&O X2 WITH CONFUSION. PATIENT ON TRACH TO VENT SETTING AC 16, TV 500, FIO2 40%, PEEP 5, OXYGEN SATURATION 98%. NSR ON THE MONITOR. IV ACCESS ON RAC 20 GAUGE, INTACT AND PATENT, NO S/S OF INFILTRATION, RUNNING NS AT 75 ML/HR. G TUBE WELL TOLERATED, SITE INTACT, NO S/S OF LEAKING. FEEDING WAS STOPPED AT 06:00, WILL BE ENDORSED TO THE NEXT SHIFT TO BE TURNED ON AT 10:00. BILATERAL SOFT WRIST RESTRAINTS IN PLACE. NO MANIFESTATIONS OF ACUTE PAIN OR DISCOMFORT. ALL SAFETY MEASURES IMPLEMENTED, BED LOCKED IN LOWEST POSITION, SIDE RAILS X3 UP, HOB ELEVATED, BELONGINGS AND CALL LIGHT WITHIN REACH. WILL ENDORSE TO THE NEXT SHIFT.
[2023-03-12 06:36] LABS: BASOPHILS % (AUTO) 0.3 % (0.0-2.0); EOSINOPHILS % (AUTO) 0.3 % (0.0-6.0); HEMATOCRIT 29 % (39-51); HEMOGLOBIN 9.5 g/dL (13.5-17.5); LYMPHOCYTES # (AUTO) 2.6 K/uL (0.8-4.8); LYMPHOCYTES % (AUTO) 29.9 % (20.0-44.0); MEAN CORPUSCULAR HGB CONC 33 g/dl (31.0-36.0); MEAN CORPUSCULAR VOLUME 87 fL (80-96); MONOCYTES # (AUTO) 1.3 K/uL (0.1-1.30); MONOCYTES % (AUTO) 14.6 % (2.0-12.0); NEUTROPHILS # (AUTO) 4.7 K/uL (1.8-8.9); NEUTROPHILS % (AUTO) 54.9 % (43.0-81.0); PLATELET COUNT (AUTO) 411 K/uL (150-450); RED BLOOD CELL COUNT(AUTO) 3.34 MIL/uL (4.5-6.0); WHITE BLOOD COUNT (AUTO) 8.6 K/uL (4.3-11.0)
--- NOTE | 2023-03-12 07:00 | NUR ---
RN NOTE RECEIVED PATIENT IN BED RESTING,CONFUSED,NON VERBAL,ANXIOUS,ON MECHANICAL VENT,SETTING PRESCRIBED,ON G-TUBE FEEDING,CHECKED IN PLACE NO RESIDUAL NOTED,ON TWOCAL 45CC/HR,IV ACCESS ON RIGHT AC INTACT ON IV HYDRATION NS 75CC/HR, INCONTINENT BOWEL/BLADDER,SAFETY MEASURE IMPLEMENT BED IN LOW POSITION AND LOCKED,HEAD OF THE BED ELEVATED,BILATERAL WRIST SOFT RESTRAIN IN PLACE,WILL CHECK EVERY 15 MINS FOR SKIN BREAK DOWN AND CIRCULATION,CONTINUE TO MONITOR.
[2023-03-12 07:04] LABS: ALBUMIN 2.4 g/dL (3.4-5.0); BILIRUBIN,TOTAL 0.1 mg/dL (0.2-1.0); CALCIUM, SERUM 9.7 mg/dL (8.5-10.1); CREATININE 0.6 mg/dL (0.6-1.3); MAGNESIUM 1.9 mg/dL (1.8-2.4); POTASSIUM 4.1 mmol/L (3.5-5.1); TOTAL PROTEIN, SERUM 8.1 g/dL (6.4-8.2)
[2023-03-12] MEDS: IV NS 0.9% 1,000 ML IV PRN ×2 (07:36→21:44)
[2023-03-12 08:00] VITALS: BP 119/77
[2023-03-12 08:21] LABS: ABG BASE EXCESS 7.5 mmol/L; ABG PCO2 54.2 mmHg (35.0-45.0); ABG PH 7.407 (7.350-7.450); ABG PO2 94.8 mmHg (75.0-100.0); COHb 0.3 % (0.5-1.5); MetHb 0.2 % (0.0-1.5); O2Hb 96.2 % (94.0-97.0); PEEP,BG 5 cm H2O; SITE, ABG Right Radial; VT, ABG 475 mL
[2023-03-12] MEDS: PYRIDOXINE HCL 50 MG TABLET GT SCH (08:26)
[2023-03-12] MEDS: DOCUSATE SODIUM LIQ 100 MG/10 ML UDC GT SCH ×2 (08:26→17:12)
[2023-03-12] MEDS: CHLORHEXIDINE GLUCONATE 15 ML UDC MM SCH ×2 (08:26→21:43)
[2023-03-12] MEDS: BETHANECHOL CHLORIDE (25 MG) 25 MG TABLET GT SCH ×2 (08:27→17:12)
[2023-03-12] MEDS: MULTIVITAMINS,THERAGRAN 1 UDTAB TABLET GT SCH (08:27)
[2023-03-12] MEDS: DOXAZOSIN MESYLATE (4 MG) 4 MG TABLET GT SCH (08:27)
[2023-03-12] MEDS: PANTOPRAZOLE 40 MG/PACK PACK GT SCH (08:27)
[2023-03-12] MEDS: LEVOTHYROXINE SODIUM 125 MCG TABLET GT SCH (08:27)
[2023-03-12] MEDS: FOLIC ACID 1 MG TABLET GT SCH (08:27)
[2023-03-12] MEDS: FINASTERIDE (5 MG) 5 MG TABLET GT SCH (08:27)
[2023-03-12] MEDS: methylPREDNISolone SOD SUCC 125 MG/2ML VIAL IV SCH (08:28)
[2023-03-12] MEDS: LIOTHYRONINE SODIUM (5 MCG/TA 5 MCG TABLET GT SCH (08:30)
[2023-03-12] MEDS: ENOXAPARIN SODIUM 40 MG/0.4 ML DISP.SYRIN SQ SCH (08:30)
[2023-03-12 12:00] VITALS: BP 107/56
[2023-03-12 16:00] VITALS: BP 122/57
[2023-03-12] MEDS: TWOCAL HN 1,000 ML LIQUID GT PRN (17:13)
[2023-03-12] MEDS: TRAZODONE 50 MG TABLET GT SCH (17:16)
[2023-03-12] MEDS: THIAMINE HCL 100 MG TABLET GT SCH (17:17)
--- NOTE | 2023-03-12 18:27 | NUR ---
RN NOTE PATIENT REMAINS CONFUSED,ON MECHANICAL VENT SETTING PRESCRIBED,NO SOB NOT ACUTE DISTRESS NOTED ALL DUE MEDS GIVEN MD ORDERED,CLONAZEPAM 0.5 PRN GIVEN,FOR ANXIETY,KEPT CLEAN AND DRY ALL TIME.TURNED AND REPOSITIONED EVERY 2 HOURS,SOFT BILATERAL WRIST RESTRAIN IN PLACE,NO SKIN BREAKDOWN, WILL ENDORSE NEXT COMING SHIFT FOR CONTINUATION OF CARE.
[2023-03-12] MEDS: CEFTRIAXONE 1 G in IV D5W 50 ML IV SCH (19:40)
[2023-03-12] MEDS: QUETIAPINE FUMARATE 100 MG TABLET GT SCH (21:43)
[2023-03-12] MEDS: ATORVASTATIN 10 MG TABLET GT SCH (21:43)
[2023-03-12] MEDS: SENNOSIDES 8.6 MG TABLET GT SCH (21:43)
[2023-03-12] MEDS: AZITHROMYCIN 500 MG in IV D5W 250 ML IV SCH (21:51)
[2023-03-12 22:00] VITALS: BP 135/63
[2023-03-12] MEDS: ZOLPIDEM TARTRATE 5 MG TABLET PO PRN (22:14)
--- NOTE | 2023-03-12 23:00 | NUR ---
RN NOTE Received pt from TOMMIE Carreon for change of primary nurse will cont POC.
--- NOTE | 2023-03-12 23:30 | NUR ---
RN NOTE Pt in bed, asleep at this time. No apparent distress noted. On mech vent via trach, current settings well maureen, no sob, nad. Afebrile. On NS at 75ml/hr to RAC #20G, DD CDI, patent. PEG tube infusing TwoCal at 45ml/hr, well maureen. HOB elevated. Aspiration precaution implemented at all times. Bilateral soft wrist restraints in placed, skin and circulation assessment done. Will cont POC
[2023-03-13] VITALS: BP 116/63
[2023-03-13] MEDS: GABAPENTIN 100 MG CAPSULE GT SCH ×4 (00:25→18:48)
[2023-03-13] MEDS: ALBUTEROL FS 2.5 MG/0.5 ML VIAL.NEB IH SCH ×4 (01:26→20:27)
[2023-03-13] MEDS: IPRATROPIUM NEB FS 0.5 MG/2.5 ML AMPUL.NEB NEB SCH ×4 (01:26→20:27)
[2023-03-13 04:00] VITALS: BP 123/76
[2023-03-13] MEDS: clonazePAM 0.5 MG TABLET GT PRN ×2 (04:32→16:12)
[2023-03-13] MEDS: VALPROIC ACID 250 MG/5 ML UDC GT SCH ×3 (04:32→21:21)
[2023-03-13] MEDS: ACETAMINOPHEN 325 MG TABLET PO PRN (04:32)
[2023-03-13] MEDS: GLYCOPYRROLATE 1 MG TABLET GT SCH ×3 (04:32→21:20)
--- NOTE | 2023-03-13 06:00 | NUR ---
RN NOTE GTF off as ordered.
[2023-03-13 06:53] LABS: BASOPHILS % (AUTO) 0.4 % (0.0-2.0); EOSINOPHILS % (AUTO) 0.8 % (0.0-6.0); HEMATOCRIT 24 % (39-51); HEMOGLOBIN 7.8 g/dL (13.5-17.5); LYMPHOCYTES # (AUTO) 2.1 K/uL (0.8-4.8); LYMPHOCYTES % (AUTO) 25.4 % (20.0-44.0); MEAN CORPUSCULAR HGB CONC 33 g/dl (31.0-36.0); MEAN CORPUSCULAR VOLUME 87 fL (80-96); MONOCYTES # (AUTO) 1.4 K/uL (0.1-1.30); MONOCYTES % (AUTO) 17.2 % (2.0-12.0); NEUTROPHILS # (AUTO) 4.6 K/uL (1.8-8.9); NEUTROPHILS % (AUTO) 56.2 % (43.0-81.0); PLATELET COUNT (AUTO) 348 K/uL (150-450); RED BLOOD CELL COUNT(AUTO) 2.72 MIL/uL (4.5-6.0); WHITE BLOOD COUNT (AUTO) 8.3 K/uL (4.3-11.0)
--- NOTE | 2023-03-13 07:15 | NUR ---
RN NOTE Hand off report given to am shift nurse for rubi
[2023-03-13 07:25] LABS: ALANINE AMINOTRANSFERASE 15 U/L (12-78); ALBUMIN 1.9 g/dL (3.4-5.0); ALKALINE PHOSPHATASE 61 U/L (46-116); ASPARTATE AMINOTRANSFERASE 18 U/L (15-37); BILIRUBIN,TOTAL 0.1 mg/dL (0.2-1.0); CALCIUM, SERUM 9.5 mg/dL (8.5-10.1); CARBON DIOXIDE 32 mmol/L (21-32); CHLORIDE 97 mmol/L (98-107); CREATININE 0.5 mg/dL (0.6-1.3); GLUCOSE 116 mg/dL (74-106); MAGNESIUM 1.9 mg/dL (1.8-2.4); PHOSPHORUS 2.7 mg/dL (2.5-4.9); POTASSIUM 3.7 mmol/L (3.5-5.1); SODIUM SERUM 133 mmol/L (136-145); TOTAL PROTEIN, SERUM 6.7 g/dL (6.4-8.2); UREA NITROGEN, BLOOD 17 mg/dL (7-18)
[2023-03-13 08:00] VITALS: BP 98/49
[2023-03-13] MEDS: ENOXAPARIN SODIUM 40 MG/0.4 ML DISP.SYRIN SQ SCH (09:00)
[2023-03-13] MEDS: DOXAZOSIN MESYLATE (4 MG) 4 MG TABLET GT SCH (09:00)
[2023-03-13] MEDS: BETHANECHOL CHLORIDE (25 MG) 25 MG TABLET GT SCH ×2 (11:42→16:12)
[2023-03-13] MEDS: PANTOPRAZOLE 40 MG/PACK PACK GT SCH (11:42)
[2023-03-13] MEDS: FOLIC ACID 1 MG TABLET GT SCH (11:43)
[2023-03-13] MEDS: DOCUSATE SODIUM LIQ 100 MG/10 ML UDC GT SCH ×2 (11:43→16:12)
[2023-03-13] MEDS: MULTIVITAMINS,THERAGRAN 1 UDTAB TABLET GT SCH (11:43)
[2023-03-13] MEDS: PYRIDOXINE HCL 50 MG TABLET GT SCH (11:43)
[2023-03-13] MEDS: CHLORHEXIDINE GLUCONATE 15 ML UDC MM SCH ×2 (11:44→21:21)
[2023-03-13] MEDS: methylPREDNISolone SOD SUCC 125 MG/2ML VIAL IV SCH (11:44)
[2023-03-13] MEDS: LEVOTHYROXINE SODIUM 125 MCG TABLET GT SCH (11:44)
[2023-03-13] MEDS: LIOTHYRONINE SODIUM (5 MCG/TA 5 MCG TABLET GT SCH (11:47)
[2023-03-13] MEDS: FINASTERIDE (5 MG) 5 MG TABLET GT SCH (11:47)
[2023-03-13 12:00] VITALS: BP 99/60
[2023-03-13 14:15] LABS: EOSINOPHILS % (MANUAL) 2 % (0-4); LYMPHOCYTES % (MANUAL) 28 % (16-48); MONOCYTES % (MANUAL) 17 % (0-11.0); NEUTROPHILS % (MANUAL) 53 (42-76)
[2023-03-13] MEDS: IV NS 0.9% 1,000 ML IV PRN (14:19)
[2023-03-13 16:00] VITALS: BP 136/73
[2023-03-13] MEDS: THIAMINE HCL 100 MG TABLET GT SCH (18:49)
[2023-03-13] MEDS: TRAZODONE 50 MG TABLET GT SCH (18:49)
--- NOTE | 2023-03-13 19:25 | NUR ---
RN NOTE RECEIVED PT FOR CONTINUITY OF CARE. PATIENT A/OX0 IN NO S/SX OF ACUTE DISTRESS AT THIS TIME; CURRENTLY ON MECHANICAL VENT; SETTING PRESCRIBED, WITH 02 SAT >95% AT THIS TIME. WITH IV ACCESS PATENT, INTACT AND FLUSHING WELL. WITH RUNNING IV FLUID ORDERED AND GTUBE FEEDING RUNNING PRESCRIBED. WITH BILATERAL SOFT RESTRAINTS IN PLACED, MONITORED AND ASSESSED PER PROTOCOL. WILL ENSURE SAFETY MEASURES WITHIN THE SHIFT. PATIENT BED ALARM IS ON. HEAD OF BED ELEVATED. BED IS LOCKED, IN LOWEST POSITION AND SIDE RAILS UP. CALL LIGHT WITHIN REACH OF THE PATIENT. WILL CONTINUE TO MONITOR AND REASSESS FOR ANY CHANGES AND WILL CARRY OUT ANY ONGOING AND ACTIVE MD ORDER.
[2023-03-13 20:00] VITALS: BP 128/71
--- NOTE | 2023-03-13 20:13 | NUR ---
RN NOTE PATIENT IN BED, ON MECHANICAL VENT SETTING PRESCRIBED,NO SOB NOT ACUTE DISTRESS NOTED ALL DUE MEDS GIVEN MD ORDERED,CLONAZEPAM 0.5 PRN GIVEN, FOR ANXIETY,KEPT CLEAN AND DRY ALL TIME.TURNED AND REPOSITIONED EVERY 2 HOURS,SOFT BILATERAL WRIST RESTRAINTS IN PLACE,NO SKIN BREAKDOWN, WILL ENDORSE NEXT COMING SHIFT FOR CONTINUATION OF CARE.
[2023-03-13] MEDS: AZITHROMYCIN 500 MG in IV D5W 250 ML IV SCH (21:19)
[2023-03-13] MEDS: SENNOSIDES 8.6 MG TABLET GT SCH (21:20)
[2023-03-13] MEDS: QUETIAPINE FUMARATE 100 MG TABLET GT SCH (21:21)
[2023-03-13] MEDS: CEFTRIAXONE 1 G in IV D5W 50 ML IV SCH (21:21)
[2023-03-13] MEDS: ATORVASTATIN 10 MG TABLET GT SCH (21:21)
--- NOTE | 2023-03-13 21:45 | NUR ---
RN NOTE ADDITIONAL IV ACCESS SECURED ON R FA#22, PATENT AND FLUSHING WELL.
[2023-03-14] VITALS: BP 109/60
[2023-03-14] MEDS: IPRATROPIUM NEB FS 0.5 MG/2.5 ML AMPUL.NEB NEB SCH ×4 (00:56→19:53)
[2023-03-14] MEDS: ALBUTEROL FS 2.5 MG/0.5 ML VIAL.NEB IH SCH ×4 (00:56→19:53)
[2023-03-14] MEDS: GABAPENTIN 100 MG CAPSULE GT SCH ×5 (01:22→23:17)
[2023-03-14 04:00] VITALS: BP 135/71
[2023-03-14] MEDS: VALPROIC ACID 250 MG/5 ML UDC GT SCH ×3 (04:28→20:21)
[2023-03-14] MEDS: GLYCOPYRROLATE 1 MG TABLET GT SCH ×3 (04:28→20:21)
[2023-03-14] MEDS: IV NS 0.9% 1,000 ML IV PRN (04:30)
--- NOTE | 2023-03-14 06:28 | NUR ---
RN NOTE PATIENT REMAINS IN ROOM IN NO SIGNS OF RESPIRATORY DISTRESS, PATIENT STILL MECH VENT WITH SETTINGS PRESCRIBED; TOLERATING WELL SATURATING @ >95% SP02. SAFETY MEASURES IMPLEMENTED, BED IN LOWEST POSITION, LOCKED, SIDE RAILS UP, CALL LIGHT WITHIN REACH. ALL NEEDS AND ORDERS ADDRESSED DURING THE SHIFT. SUCTIONING AND TURNING DONE REGULARLY. IV ACCESS MAINTAINED INTACT, SECURED AND FLUSHING WELL. ALL DUE MEDS GIVEN ORDERED & SCHEDULED; PATIENT TOLERATED WELL. PATIENT KEPT CLEAN AND COMFORTABLE WITHIN THE SHIFT. BILATERAL SOFT RESTRAINTS REMAINED SECURED AND MONITORED PER PROTOCOL. PATIENT ENDORSED TO INCOMING SHIFT RN WITH STABLE VITAL SIGN AND FOR CONTINUITY OF CARE.
[2023-03-14 07:15] LABS: BASOPHILS % (AUTO) 0.2 % (0.0-2.0); EOSINOPHILS % (AUTO) 0.5 % (0.0-6.0); HEMATOCRIT 27 % (39-51); HEMOGLOBIN 8.8 g/dL (13.5-17.5); LYMPHOCYTES # (AUTO) 2.4 K/uL (0.8-4.8); LYMPHOCYTES % (AUTO) 29.3 % (20.0-44.0); MEAN CORPUSCULAR HGB CONC 32 g/dl (31.0-36.0); MEAN CORPUSCULAR VOLUME 87 fL (80-96); MONOCYTES # (AUTO) 1.2 K/uL (0.1-1.30); MONOCYTES % (AUTO) 14.5 % (2.0-12.0); NEUTROPHILS # (AUTO) 4.5 K/uL (1.8-8.9); NEUTROPHILS % (AUTO) 55.5 % (43.0-81.0); PLATELET COUNT (AUTO) 402 K/uL (150-450); RED BLOOD CELL COUNT(AUTO) 3.14 MIL/uL (4.5-6.0); WHITE BLOOD COUNT (AUTO) 8.1 K/uL (4.3-11.0)
[2023-03-14 07:29] LABS: ALBUMIN 2.2 g/dL (3.4-5.0); BILIRUBIN,TOTAL 0.2 mg/dL (0.2-1.0); CALCIUM, SERUM 9.5 mg/dL (8.5-10.1); CREATININE 0.6 mg/dL (0.6-1.3); MAGNESIUM 1.7 mg/dL (1.8-2.4); PHOSPHORUS 3.1 mg/dL (2.5-4.9); POTASSIUM 3.9 mmol/L (3.5-5.1); TOTAL PROTEIN, SERUM 7.5 g/dL (6.4-8.2)
--- NOTE | 2023-03-14 07:45 | NUR ---
@ 0745 on weaning trial per dr. layton with CPAP 5 / PS 15. SPO2 100% HR 77BPM RR 24 BPM Addendum: 03/14/23 at 0817 by ALIREZA LEON RT Amended: Links added.
[2023-03-14 08:00] VITALS: BP 131/93
[2023-03-14 09:26] LABS: ABG BASE EXCESS 7.5 mmol/L; ABG PCO2 44.3 mmHg (35.0-45.0); ABG PH 7.474 (7.350-7.450); COHb 0.3 % (0.5-1.5); MetHb 0.4 % (0.0-1.5); O2Hb 95.9 % (94.0-97.0); SITE, ABG Left Brachial; VENT MODE, BG cpap 5 / ps 15
[2023-03-14] MEDS: LIOTHYRONINE SODIUM (5 MCG/TA 5 MCG TABLET GT SCH (09:46)
[2023-03-14] MEDS: PANTOPRAZOLE 40 MG/PACK PACK GT SCH (09:46)
[2023-03-14] MEDS: FINASTERIDE (5 MG) 5 MG TABLET GT SCH (09:47)
[2023-03-14] MEDS: CHLORHEXIDINE GLUCONATE 15 ML UDC MM SCH ×2 (09:47→20:21)
[2023-03-14] MEDS: FOLIC ACID 1 MG TABLET GT SCH (09:47)
[2023-03-14] MEDS: methylPREDNISolone SOD SUCC 125 MG/2ML VIAL IV SCH (09:47)
[2023-03-14] MEDS: DOCUSATE SODIUM LIQ 100 MG/10 ML UDC GT SCH ×2 (09:47→17:51)
[2023-03-14] MEDS: clonazePAM 0.5 MG TABLET GT PRN (09:47)
[2023-03-14] MEDS: LEVOTHYROXINE SODIUM 125 MCG TABLET GT SCH (09:48)
[2023-03-14] MEDS: MULTIVITAMINS,THERAGRAN 1 UDTAB TABLET GT SCH (09:48)
[2023-03-14] MEDS: TWOCAL HN 1,000 ML LIQUID GT PRN (09:48)
[2023-03-14] MEDS: PYRIDOXINE HCL 50 MG TABLET GT SCH (09:48)
[2023-03-14] MEDS: DOXAZOSIN MESYLATE (4 MG) 4 MG TABLET GT SCH (09:48)
[2023-03-14] MEDS: BETHANECHOL CHLORIDE (25 MG) 25 MG TABLET GT SCH ×2 (09:48→17:52)
[2023-03-14] MEDS: ENOXAPARIN SODIUM 40 MG/0.4 ML DISP.SYRIN SQ SCH (10:48)
[2023-03-14 12:00] VITALS: BP 147/91
--- NOTE | 2023-03-14 12:13 | NUR ---
PLACED BACK INTO AC MODE DUE TO INCREASED WORK OF BREATHING ( 33 RR). RN AWARE Addendum: 03/14/23 at 1214 by ALIREZA LEON RT Amended: Links added.
[2023-03-14] MEDS ORDERED: MAGNESIUM OXIDE 400 MG TABLET PO ONE (13:00)
[2023-03-14 16:00] VITALS: BP 129/83
[2023-03-14] MEDS: THIAMINE HCL 100 MG TABLET GT SCH (17:52)
[2023-03-14] MEDS: TRAZODONE 50 MG TABLET GT SCH (17:52)
--- NOTE | 2023-03-14 19:00 | NUR ---
RN OPENING NOTE RECEIVED PT AWAKE IN BED. PT A/O X 1, NO VERBAL. PT IS IN MECHANICAL VENTILATOR, TOLERATING WELL, BREATHING EVEN AND UNLABORED @ THIS TIME. PT TRACHEOSTOMY IS IN PLACE. PT IV PRESENT IN RIGHT AC #20G SALINE LOCK, PATENT, INTACT AND FLUSHES WELL W/ NO S & SX OF INFILTRATION @ SITE NOTED. PT GTUBE IS IN PLACE. TOLERATING WELL W/ NO RESIDUAL @ THIS TIME. PT RN WOUND IS IN PLACE WITH CURRENT READING OF SINUS RHYTHM-SINUS TACHYCARDIA. SAFETY MEASURE IS IN PLACE. BED IN LOWEST AND LOCKED POSITION. SIDE RAILS UP X 2. BEDSIDE TABLE AND CALL IS EASY REACH. BED ALARM IS ON. WILL CONTINUE TO MONITOR PT ACCORDINGLY.
--- NOTE | 2023-03-14 19:51 | NUR ---
RN NOTE PATIENT REMAINS IN ROOM IN NO SIGNS OF RESPIRATORY DISTRESS, PATIENT STILL MECH VENT WITH SETTINGS PRESCRIBED; TOLERATING WELL SATURATING AT 95% SP02. ALL SAFETY MEASURES IMPLEMENTED, BED IN LOWEST POSITION, LOCKED, SIDE RAILS UP, CALL LIGHT WITHIN REACH. ALL NEEDS AND ORDERS ADDRESSED DURING THE SHIFT. SUCTIONING AND TURNING DONE REGULARLY. IV ACCESS MAINTAINED INTACT, SECURED AND FLUSHING WELL. ALL DUE MEDS GIVEN ORDERED & SCHEDULED; PATIENT TOLERATED WELL. PATIENT KEPT CLEAN AND COMFORTABLE WITHIN THE SHIFT. BILATERAL SOFT RESTRAINTS REMAINED SECURED AND MONITORED PER PROTOCOL. PATIENT ENDORSED TO INCOMING SHIFT RN WITH STABLE VITAL SIGNS AND FOR CONTINUITY OF CARE.
[2023-03-14 20:00] VITALS: BP 131/77
[2023-03-14] MEDS: CEFTRIAXONE 1 G in IV D5W 50 ML IV SCH (20:21)
[2023-03-14] MEDS: AZITHROMYCIN 500 MG in IV D5W 250 ML IV SCH (21:04)
[2023-03-14] MEDS: QUETIAPINE FUMARATE 100 MG TABLET GT SCH (21:50)
[2023-03-14] MEDS: ATORVASTATIN 10 MG TABLET GT SCH (21:50)
[2023-03-14] MEDS: SENNOSIDES 8.6 MG TABLET GT SCH (21:50)
[2023-03-15] VITALS: BP 131/73
[2023-03-15] MEDS: IPRATROPIUM NEB FS 0.5 MG/2.5 ML AMPUL.NEB NEB SCH ×4 (02:03→20:11)
[2023-03-15] MEDS: ALBUTEROL FS 2.5 MG/0.5 ML VIAL.NEB IH SCH ×4 (02:03→20:11)
[2023-03-15 04:00] VITALS: BP 130/70
[2023-03-15] MEDS: VALPROIC ACID 250 MG/5 ML UDC GT SCH ×3 (05:05→20:26)
[2023-03-15] MEDS: GABAPENTIN 100 MG CAPSULE GT SCH ×3 (05:05→17:50)
[2023-03-15] MEDS: GLYCOPYRROLATE 1 MG TABLET GT SCH ×3 (05:05→20:26)
[2023-03-15 06:26] LABS: BASOPHILS % (AUTO) 0.3 % (0.0-2.0); EOSINOPHILS % (AUTO) 0.4 % (0.0-6.0); HEMATOCRIT 25 % (39-51); HEMOGLOBIN 8.2 g/dL (13.5-17.5); LYMPHOCYTES % (AUTO) 30.9 % (20.0-44.0); MEAN CORPUSCULAR HGB CONC 32 g/dl (31.0-36.0); MEAN CORPUSCULAR VOLUME 87 fL (80-96); MONOCYTES # (AUTO) 1.3 K/uL (0.1-1.30); MONOCYTES % (AUTO) 13.9 % (2.0-12.0); NEUTROPHILS # (AUTO) 5.2 K/uL (1.8-8.9); NEUTROPHILS % (AUTO) 54.5 % (43.0-81.0); PLATELET COUNT (AUTO) 351 K/uL (150-450); WHITE BLOOD COUNT (AUTO) 9.6 K/uL (4.3-11.0)
--- NOTE | 2023-03-15 06:39 | NUR ---
RN CLOSING NOTE PT AWAKE & RESTING COMFORTABLY IN BED. PT A/O X 1, RESPONSIVE. PT IS IN MECHANICAL VENTILATOR, W/ NO S&SX OF RESPIRATORY DISTRESS @ THIS TIME. PT TRACHEOSTOMY IS IN PLACE. PT IV PRESENT IN RIGHT AC #20G SALINE LOCK, PATENT, INTACT AND FLUSHES WELL W/ NO S & SX OF INFILTRATION @ SITE NOTED. PT GTUBE IS IN PLACE RUNNING TWOCAL @45MLS/HR. TOLERATING WELL W/ NO RESIDUAL @ THIS TIME. PT EHS ENGINEER IS IN PLACE WITH CURRENT READING OF SINUS RHYTHM W/ PAC & PVC, HR 57BPM. SAFETY MEASURE IS IN PLACE. BED IN LOWEST AND LOCKED POSITION. SIDERAILS UP X 2. BEDSIDE TABLE AND CALL LIGHT IS EASY REACH. BED ALARM IS ON. WILL ENDORSE PT TO THE NEXT SHIFT FOR JORDY.
[2023-03-15 06:57] LABS: ALANINE AMINOTRANSFERASE 16 U/L (12-78); ALBUMIN 2.1 g/dL (3.4-5.0); ALKALINE PHOSPHATASE 64 U/L (46-116); ASPARTATE AMINOTRANSFERASE 18 U/L (15-37); BILIRUBIN,TOTAL 0.2 mg/dL (0.2-1.0); CALCIUM, SERUM 9.4 mg/dL (8.5-10.1); CARBON DIOXIDE 31 mmol/L (21-32); CHLORIDE 95 mmol/L (98-107); CREATININE 0.6 mg/dL (0.6-1.3); GLUCOSE 109 mg/dL (74-106); MAGNESIUM 1.6 mg/dL (1.8-2.4); POTASSIUM 3.7 mmol/L (3.5-5.1); SODIUM SERUM 133 mmol/L (136-145); TOTAL PROTEIN, SERUM 6.7 g/dL (6.4-8.2); UREA NITROGEN, BLOOD 14 mg/dL (7-18)
--- NOTE | 2023-03-15 07:00 | NUR ---
RN OPENING NOTE RECEIVED PT AWAKE IN BED. PT A/O X 1, NO VERBAL. PT IS IN MECHANICAL VENTILATOR, TOLERATING WELL, BREATHING EVEN AND UNLABORED @ THIS TIME. PT TRACHEOSTOMY IS IN PLACE. PT IV PRESENT IN RIGHT AC #20G SALINE LOCK, PATENT, INTACT AND FLUSHES WELL W/ NO S & SX OF INFILTRATION @ SITE NOTED. PT GTUBE IS IN PLACE. TOLERATING WELL W/ NO RESIDUAL @ THIS TIME. PT ALGORITHM DEVELOPER IS IN PLACE WITH CURRENT READING OF SINUS RHYTHM-SINUS TACHYCARDIA. SAFETY MEASURE IS IN PLACE. BED IN LOWEST AND LOCKED POSITION. SIDE RAILS UP X 2. BEDSIDE TABLE AND CALL IS EASY REACH. BED ALARM IS ON. WILL CONTINUE TO MONITOR PT ACCORDINGLY.
[2023-03-15 08:00] VITALS: BP 138/68
[2023-03-15] MEDS: PANTOPRAZOLE 40 MG/PACK PACK GT SCH (09:17)
[2023-03-15] MEDS: methylPREDNISolone SOD SUCC 125 MG/2ML VIAL IV SCH (09:18)
[2023-03-15] MEDS: CHLORHEXIDINE GLUCONATE 15 ML UDC MM SCH ×2 (09:18→20:26)
[2023-03-15] MEDS: DOCUSATE SODIUM LIQ 100 MG/10 ML UDC GT SCH ×2 (09:18→16:05)
[2023-03-15] MEDS: LIOTHYRONINE SODIUM (5 MCG/TA 5 MCG TABLET GT SCH (09:18)
[2023-03-15] MEDS: PYRIDOXINE HCL 50 MG TABLET GT SCH (09:19)
[2023-03-15] MEDS: LEVOTHYROXINE SODIUM 125 MCG TABLET GT SCH (09:19)
[2023-03-15] MEDS: FINASTERIDE (5 MG) 5 MG TABLET GT SCH (09:19)
[2023-03-15] MEDS: DOXAZOSIN MESYLATE (4 MG) 4 MG TABLET GT SCH (09:20)
[2023-03-15] MEDS: BETHANECHOL CHLORIDE (25 MG) 25 MG TABLET GT SCH ×2 (09:20→16:05)
[2023-03-15] MEDS: ENOXAPARIN SODIUM 40 MG/0.4 ML DISP.SYRIN SQ SCH (09:20)
[2023-03-15] MEDS: MULTIVITAMINS,THERAGRAN 1 UDTAB TABLET GT SCH (09:20)
[2023-03-15] MEDS: FOLIC ACID 1 MG TABLET GT SCH (09:20)
[2023-03-15] MEDS ORDERED: MAGNESIUM OXIDE 400 MG TABLET GT ONE (10:30)
[2023-03-15 12:00] VITALS: BP 131/76
[2023-03-15 16:00] VITALS: BP 127/67
[2023-03-15] MEDS: clonazePAM 0.5 MG TABLET GT PRN (16:05)
[2023-03-15] MEDS: IV NS 0.9% 1,000 ML IV PRN (17:49)
[2023-03-15] MEDS: TRAZODONE 50 MG TABLET GT SCH (17:50)
[2023-03-15] MEDS: THIAMINE HCL 100 MG TABLET GT SCH (17:50)
--- NOTE | 2023-03-15 18:30 | NUR ---
RN CLOSING NOTE PT AWAKE & RESTING COMFORTABLY IN BED. PT A/O X 1, RESPONSIVE. PT IS IN MECHANICAL VENTILATOR, W/ NO S&SX OF RESPIRATORY DISTRESS @ THIS TIME. PT TRACHEOSTOMY IS IN PLACE. PT IV PRESENT IN RIGHT AC #20G SALINE LOCK, PATENT, INTACT AND FLUSHES WELL W/ NO S & SX OF INFILTRATION @ SITE NOTED. PT GTUBE IS IN PLACE RUNNING TWOCAL @45MLS/HR. TOLERATING WELL W/ NO RESIDUAL @ THIS TIME. PT RESEARCH INTERVIEWER IS IN PLACE WITH CURRENT READING OF SINUS RHYTHM W/ PAC & PVC, HR 57BPM. SAFETY MEASURE IS IN PLACE. BED IN LOWEST AND LOCKED POSITION. SIDERAILS UP X 2. BEDSIDE TABLE AND CALL LIGHT IS EASY REACH. BED ALARM IS ON. WILL ENDORSE PT TO THE NEXT SHIFT FOR JORDY.
[2023-03-15 20:00] VITALS: BP 138/76
[2023-03-15] MEDS: CEFTRIAXONE 1 G in IV D5W 50 ML IV SCH (20:19)
--- NOTE | 2023-03-15 20:34 | NUR ---
PT AWAKE & RESTING COMFORTABLY IN BED WITH CAREGIVER AT BEDSIDE. PT A/O X 1, RESPONSIVE. PT K 9 HANDLER/ DEPUTY IS IN PLACE WITH CURRENT READING OF SINUS RHYTHM W/ PAC & PVC, HR 57BPM. PT IS IN MECHANICAL VENTILATOR, W/ NO S&SX OF RESPIRATORY DISTRESS @ THIS TIME. PT TRACHEOSTOMY IS IN PLACE. IV ACCESS IN RIGHT AC #20G INFUSING 0.9 NS AT 60 ML/HR. PT GTUBE IS IN PLACE INFUSING TWOCAL @45MLS/HR. TOLERATING WELL W/ NO RESIDUAL @ THIS TIME. SAFETY MEASURES IN PLACE. HOB ELEVATED. CALL LIGHT WITHIN REACH. WILL CONTINUE PLAN OF CARE.
[2023-03-15] MEDS: QUETIAPINE FUMARATE 100 MG TABLET GT SCH (21:09)
[2023-03-15] MEDS: ATORVASTATIN 10 MG TABLET GT SCH (21:09)
[2023-03-15] MEDS: SENNOSIDES 8.6 MG TABLET GT SCH (21:09)
[2023-03-15] MEDS: ZOLPIDEM TARTRATE 5 MG TABLET PO PRN (21:26)
[2023-03-16] VITALS: BP 130/70
[2023-03-16] MEDS: GABAPENTIN 100 MG CAPSULE GT SCH ×4 (00:01→17:34)
[2023-03-16] MEDS: ALBUTEROL FS 2.5 MG/0.5 ML VIAL.NEB IH SCH ×4 (01:55→20:12)
[2023-03-16] MEDS: IPRATROPIUM NEB FS 0.5 MG/2.5 ML AMPUL.NEB NEB SCH ×4 (01:55→20:12)
[2023-03-16] MEDS: clonazePAM 0.5 MG TABLET GT PRN (02:07)
[2023-03-16 04:00] VITALS: BP 110/61
[2023-03-16] MEDS: VALPROIC ACID 250 MG/5 ML UDC GT SCH ×3 (05:14→20:17)
[2023-03-16] MEDS: GLYCOPYRROLATE 1 MG TABLET GT SCH ×3 (05:14→20:17)
--- NOTE | 2023-03-16 07:00 | NUR ---
RN OPENING NOTE RECEIVED PT AWAKE IN BED. PT A/O X 1, NO VERBAL. PT IS IN MECHANICAL VENTILATOR, TOLERATING WELL, BREATHING EVEN AND UNLABORED AT THIS TIME. PT TRACHEOSTOMY IS IN PLACE. IV ACCESS ON R AC #20G SALINE LOCK, PATENT, INTACT AND FLUSHES WELL. PATIENT HAS AN ORDER TO HOLD G-TUBE FROM 6 AM TO 10 AM. G-TUBE WILL BE CONTINUED PER MD ORDER. PT CARDIAC READING ON SR WITH PAC-PVC WITH HR 75. PATIENT NOTED WITH GENERALIZED BRUISES. SAFETY MEASURE IS IN PLACE. BED IN LOWEST AND LOCKED POSITION. SIDE RAILS UP X 2. CALL LIGHT AND TABLE WITHIN REACH, BED ALARM ON. WILL CONTINUE TO MONITOR.
--- NOTE | 2023-03-16 07:00 | NUR ---
PATIENT ON CONTINUOUS 0.9 SODIUM CHLORIDE FLUIDS RUNNING AT 60 ML/HR
--- NOTE | 2023-03-16 07:10 | NUR ---
PT AWAKE & RESTING COMFORTABLY IN BED WITH CAREGIVER AT BEDSIDE. PT A/O X 1, RESPONSIVE. PT IMPLEMENTATION ADVISOR IS IN PLACE WITH CURRENT READING OF SINUS RHYTHM W/ PAC & PVC, HR 57BPM. PT IS IN MECHANICAL VENTILATOR, W/ NO S&SX OF RESPIRATORY DISTRESS @ THIS TIME. PT TRACHEOSTOMY IS IN PLACE. IV ACCESS IN RIGHT AC #20G INFUSING 0.9 NS AT 60 ML/HR. PT GTUBE STOPPED AT 6AM. TOLERATED WELL W/ NO RESIDUAL @ THIS TIME. NEEDS ATTENDED. DUE MEDS GIVEN NEEDED AND ORDERED. SAFETY MEASURES MAINTAINED. HOB ELEVATED. CALL LIGHT WITHIN REACH. WILL ENDORSE TO NEXT NURSE ON DUTY FOR CONTINUITY OF CARE.
[2023-03-16 08:00] VITALS: BP 147/98
[2023-03-16] MEDS: FINASTERIDE (5 MG) 5 MG TABLET GT SCH (08:32)
[2023-03-16] MEDS: methylPREDNISolone SOD SUCC 125 MG/2ML VIAL IV SCH (08:32)
[2023-03-16] MEDS: DOCUSATE SODIUM LIQ 100 MG/10 ML UDC GT SCH ×2 (08:32→17:34)
[2023-03-16] MEDS: CHLORHEXIDINE GLUCONATE 15 ML UDC MM SCH ×2 (08:32→20:17)
[2023-03-16] MEDS: LEVOTHYROXINE SODIUM 125 MCG TABLET GT SCH (08:33)
[2023-03-16] MEDS: PYRIDOXINE HCL 50 MG TABLET GT SCH (08:33)
[2023-03-16] MEDS: DOXAZOSIN MESYLATE (4 MG) 4 MG TABLET GT SCH (08:33)
[2023-03-16] MEDS: BETHANECHOL CHLORIDE (25 MG) 25 MG TABLET GT SCH ×2 (08:33→17:34)
[2023-03-16] MEDS: MULTIVITAMINS,THERAGRAN 1 UDTAB TABLET GT SCH (08:33)
[2023-03-16] MEDS: PANTOPRAZOLE 40 MG/PACK PACK GT SCH (08:33)
[2023-03-16] MEDS: LIOTHYRONINE SODIUM (5 MCG/TA 5 MCG TABLET GT SCH (08:34)
[2023-03-16] MEDS: ENOXAPARIN SODIUM 40 MG/0.4 ML DISP.SYRIN SQ SCH (08:37)
[2023-03-16] MEDS: FOLIC ACID 1 MG TABLET GT SCH (08:39)
--- NOTE | 2023-03-16 10:02 | NUR ---
RN NOTE G-TUBE WAS PUT IN PLACE INFUSING TWOCAL @45MLS/HR. NO RESIDUAL NOTED. PATIENT TOLERATING WELL. WILL CONTINUE TO MONITOR.
[2023-03-16] MEDS: TWOCAL HN 1,000 ML LIQUID GT PRN (10:04)
[2023-03-16] MEDS: IV NS 0.9% 1,000 ML IV PRN (10:20)
[2023-03-16 12:00] VITALS: BP 134/71
[2023-03-16 16:00] VITALS: BP 127/81
[2023-03-16] MEDS: TRAZODONE 50 MG TABLET GT SCH (17:34)
[2023-03-16] MEDS: ACETAMINOPHEN 325 MG TABLET PO PRN (17:34)
[2023-03-16] MEDS: THIAMINE HCL 100 MG TABLET GT SCH (17:34)
--- NOTE | 2023-03-16 19:30 | NUR ---
TELEVISION ENGINEERING TEACHER OPENING NOTE RECEIVED PT AWAKE IN BED. PT A/O X 1, NO VERBAL. PT IS IN MECHANICAL VENTILATOR, AC 12, TV 475, FIO2 40, PEEP 5. PT TRACHEOSTOMY IS IN PLACE. IV ACCESS ON LEFT HAND #20G, FLUSHED, PATENT, INTACT. GASTRIC RESIDUAL 10 ML. G-TUBE FEEDING RATE AT 45 ML/HR, PATIENT TOLERATING WELL. SR WITH PAC-PVC ON THE MONITOR. SOFT BILATERAL WRIST RESTRAINS ARE IN PLACE, SKIN INTACT. SAFETY MEASURES IS IN PLACE. BED IN LOWEST AND LOCKED POSITION. SIDE RAILS UP X 2. CALL LIGHT AND TABLE WITHIN REACH, BED ALARM ON. WILL CONTINUE TO MONITOR.
--- NOTE | 2023-03-16 19:31 | NUR ---
RN CLOSING NOTE RECEIVED PT AWAKE IN BED. PT A/O X 1, NO VERBAL. PT IS IN MECHANICAL VENTILATOR, TOLERATING WELL, BREATHING EVEN AND UNLABORED AT THIS TIME. PT TRACHEOSTOMY IS IN PLACE. IV ACCESS ON R HAND #20G SALINE LOCK, PATENT, INTACT AND FLUSHES WELL. G-TUBE CONTINUED PER MD ORDER WITH 20 ML/ RESIDUAL NOTED, PATIENT TOLERATING WELL. PT CARDIAC READING ON SR WITH PAC-PVC WITH HR 79. RESTRAINS WERE REMOVED TO ALLOW FOR CIRCULATION, NO WOUNDS, PATIENT WAS REPOSITIONED EVERY TWO HOURS. PATIENT NOTED WITH GENERALIZED BRUISES. SAFETY MEASURE IS IN PLACE. BED IN LOWEST AND LOCKED POSITION. SIDE RAILS UP X 2. CALL LIGHT AND TABLE WITHIN REACH, BED ALARM ON. REPORT GIVEN TO BELT SPLICER NURSE FOR CONTINUING OF CARE.
[2023-03-16 20:00] VITALS: BP 138/69
[2023-03-16] MEDS: CEFTRIAXONE 1 G in IV D5W 50 ML IV SCH (20:16)
[2023-03-16] MEDS: QUETIAPINE FUMARATE 100 MG TABLET GT SCH (22:02)
[2023-03-16] MEDS: SENNOSIDES 8.6 MG TABLET GT SCH (22:02)
[2023-03-16] MEDS: ATORVASTATIN 10 MG TABLET GT SCH (22:02)
[2023-03-17] VITALS: BP 121/65
[2023-03-17] MEDS: GABAPENTIN 100 MG CAPSULE GT SCH ×3 (00:06→11:09)
[2023-03-17] MEDS: clonazePAM 0.5 MG TABLET GT PRN (00:50)
[2023-03-17] MEDS: IPRATROPIUM NEB FS 0.5 MG/2.5 ML AMPUL.NEB NEB SCH ×3 (02:01→12:57)
[2023-03-17] MEDS: ALBUTEROL FS 2.5 MG/0.5 ML VIAL.NEB IH SCH ×3 (02:01→12:57)
[2023-03-17] MEDS: IV NS 0.9% 1,000 ML IV PRN (02:32)
[2023-03-17 04:00] VITALS: BP 140/78
[2023-03-17] MEDS: GLYCOPYRROLATE 1 MG TABLET GT SCH ×2 (04:57→13:41)
[2023-03-17] MEDS: VALPROIC ACID 250 MG/5 ML UDC GT SCH ×2 (04:57→13:41)
--- NOTE | 2023-03-17 06:50 | NUR ---
MANAGER STYLE CLOSING NOTE PT AWAKE IN BED. PT A/O X 1, NO VERBAL. PT IS IN MECHANICAL VENTILATOR, AC 12, TV 475, FIO2 40, PEEP 5. PT TRACHEOSTOMY IS IN PLACE. IV ACCESS ON LEFT HAND #20G, FLUSHED, PATENT, INTACT, RUNNING NS AT 60 ML/HR. GASTRIC RESIDUAL 10 ML. G-TUBE FEEDING TWOCAL HN STOPPED AT 06:00, THE INFORMATION ABOUT RESUMING FEEDING AT 10:00 WILL BE ENDORSED TO THE NEXT SHIFT. SR ON THE MONITOR, HR 74. SOFT BILATERAL WRIST RESTRAINS ARE IN PLACE, SKIN INTACT. RESTRAINS WERE REMOVED Q2H, CIRCULATION AND SKIN CHECKED. SAFETY MEASURES ARE IN PLACE. BED IN LOWEST AND LOCKED POSITION. SIDE RAILS UP X 2. CALL LIGHT AND TABLE WITHIN REACH, BED ALARM ON. WILL BE ENDORSED TO THE NEXT SHIFT FOR JORDY.
--- NOTE | 2023-03-17 07:20 | NUR ---
VISITOR SERVICES ASSISTANT OPENING NOTE RECEIVED PT AWAKE IN BED. PT A/O X 1, NO VERBAL. PT IS IN MECHANICAL VENTILATOR, AC 12, TV 475, FIO2 40, PEEP 5. PT TRACHEOSTOMY IS IN PLACE. IV ACCESS ON LEFT HAND #20G, FLUSHED, PATENT, INTACT. GASTRIC RESIDUAL 5 ML. G-TUBE FEEDING RATE AT 45 ML/HR, PATIENT TOLERATING WELL. SR WITH PAC-PVC ON THE MONITOR. SOFT BILATERAL WRIST RESTRAINS ARE IN PLACE, SKIN INTACT. SAFETY MEASURES IS IN PLACE. BED IN LOWEST AND LOCKED POSITION. SIDE RAILS UP X 2. CALL LIGHT AND TABLE WITHIN REACH, BED ALARM ON. WILL CONTINUE TO MONITOR.
[2023-03-17 08:00] VITALS: BP 134/87
[2023-03-17 09:31] LABS: ABG BASE EXCESS 6.7 mmol/L; ABG PCO2 38.9 mmHg (35.0-45.0); ABG PH 7.508 (7.350-7.450); ABG PO2 80.3 mmHg (75.0-100.0); AaDO2 160.2 mmHg; COHb 0.2 % (0.5-1.5); O2Hb 95.8 % (94.0-97.0); SITE, ABG Right Radial; VENT MODE, BG CPAP 15 +5 40%
[2023-03-17] MEDS: THIAMINE HCL 100 MG TABLET GT SCH (10:57)
[2023-03-17] MEDS: PANTOPRAZOLE 40 MG/PACK PACK GT SCH (10:57)
[2023-03-17] MEDS: BETHANECHOL CHLORIDE (25 MG) 25 MG TABLET GT SCH (10:57)
[2023-03-17] MEDS: DOCUSATE SODIUM LIQ 100 MG/10 ML UDC GT SCH (10:57)
[2023-03-17] MEDS: FOLIC ACID 1 MG TABLET GT SCH (10:59)
[2023-03-17] MEDS: DOXAZOSIN MESYLATE (4 MG) 4 MG TABLET GT SCH (10:59)
[2023-03-17] MEDS: MULTIVITAMINS,THERAGRAN 1 UDTAB TABLET GT SCH (10:59)
[2023-03-17] MEDS: ENOXAPARIN SODIUM 40 MG/0.4 ML DISP.SYRIN SQ SCH (11:01)
[2023-03-17] MEDS: LEVOTHYROXINE SODIUM 125 MCG TABLET GT SCH (11:09)
[2023-03-17] MEDS: FINASTERIDE (5 MG) 5 MG TABLET GT SCH (11:09)
[2023-03-17] MEDS: PYRIDOXINE HCL 50 MG TABLET GT SCH (11:09)
[2023-03-17] MEDS: methylPREDNISolone SOD SUCC 125 MG/2ML VIAL IV SCH (11:10)
[2023-03-17] MEDS: CHLORHEXIDINE GLUCONATE 15 ML UDC MM SCH (11:12)
[2023-03-17] MEDS: LIOTHYRONINE SODIUM (5 MCG/TA 5 MCG TABLET GT SCH (11:14)
[2023-03-17 12:00] VITALS: BP 98/52
--- NOTE | 2023-03-17 13:35 | NUR ---
RN NOTE PT LEFT IN MECHANICAL VENTILATOR ON THE SAME SET UP: AC 12, TV 475, FIO2 40, PEEP 5. PT TRACHEOSTOMY IS IN PLACE. IV ACCESS ON LEFT HAND #20G, FLUSHED, PATENT, INTACT. G-TUBE PATENT AND INTACT. CHARGE NURSE GAVE REPORT TO RN AT [facility]
--- NOTE | 2023-03-17 13:45 | NUR ---
RN NOTE PATIENT DISCHARGE IN STABLE MEDICAL CONDITION. A/O X1. VITAL SIGNS TAKEN, STABLE AND RECORDED. NO IV ACCESS. NAME ARM BAND REMOVED. EXTERNAL PREPARATION DEPARTMENT SUPERVISOR REMOVED AND RETURNED TO TELE DESK. PATIENT REFUSED SKIN ASSESSMENT AND PICTURE. ALL BELONGINGS CHECKED AND BELONGING LIST SIGNED. HEALTH TEACHING AND DISCHARGE INSTRUCTION GIVEN TO CAREGIVER AND RN AT [place]. REPORT GIVEN TO TEVIN RN ON SHIFT. PATIENT LEFT UNIT VIA GURNEY WITH NO SIGNS OF DISTRESS, ACCOMPANIED BY RT AND 2 INCUBATOR OPERATOR PLUS PATIENT'S CAREGIVER. CHARGE NURSE AWARE OF DISCHARGED
[2023-03-17] MEDS ORDERED: LORAZEPAM INJ 2 MG/ML VIAL IV ONE (14:00)
== END 2023-03-17 14:10 | DRG 207 ==
LOC: ER 16:56 → TELE1 20:03
PROVIDERS: ADMIT Nurse Practitioner Acute Care; ATTEND Nurse Practitioner Acute Care
PROC: 5A1955Z Respiratory Ventilation, Greater than 96 Consecutive Hours (ICD-10-PCS; principal; 2023-03-10)
PROC: 0H57XZZ Destruction of Abdomen Skin, External Approach (ICD-10-PCS; 2023-03-11)
DX: J96.22 Acute and chronic respiratory failure with hypercapnia (principal); J69.0 Pneumonitis due to inhalation of food and vomit; E43 Unspecified severe protein-calorie malnutrition; G93.41 Metabolic encephalopathy; J15.9 Unspecified bacterial pneumonia; J44.0 Chronic obstructive pulmonary disease with (acute) lower respiratory infection; D68.59 Other primary thrombophilia; E22.2 Syndrome of inappropriate secretion of antidiuretic hormone; Z99.11 Dependence on respirator [ventilator] status; J98.11 Atelectasis; F03.93 Unspecified dementia, unspecified severity, with mood disturbance; J96.21 Acute and chronic respiratory failure with hypoxia; Z93.0 Tracheostomy status; Z93.1 Gastrostomy status; R13.10 Dysphagia, unspecified; E03.9 Hypothyroidism, unspecified; F31.9 Bipolar disorder, unspecified; Z74.09 Other reduced mobility; E78.5 Hyperlipidemia, unspecified; I11.0 Hypertensive heart disease with heart failure; I50.9 Heart failure, unspecified; K44.9 Diaphragmatic hernia without obstruction or gangrene; F41.9 Anxiety disorder, unspecified; Z88.1 Allergy status to other antibiotic agents; Z88.0 Allergy status to penicillin; Z87.891 Personal history of nicotine dependence; F20.9 Schizophrenia, unspecified; E88.09 Other disorders of plasma-protein metabolism, not elsewhere classified; L92.8 Other granulomatous disorders of the skin and subcutaneous tissue
CPT/HCPCS: 31720; 36415; 36600; 71045-TC; 71250-TC; 80048-TC; 80053-TC; 80076-TC; 81001; 82533; 82803-TC; 83605-TC; 83735-TC; 84100-TC; 84443-TC; 84484-TC; 85025-TC; 85730-TC; 87040-TC; 87081-TC; 87086-TC; 94002-TC; 94003-TC; 94760-TC; 94762-TC; 94799-TC; 99082-TC; A4223; A4349; A7526; C9803; G0378; J0456; J0696; J1650; J2930; J7030; J7050; J7060